=== PATIENT | female | born 1930 | race American Indian/Alaskan Native ===

== ENCOUNTER 2017-06-10 09:01 | Inpatient (IN) | payer MEDICARE ==
[2017-06-10 09:12] VITALS: BMI 41.6
--- NOTE | 2017-06-10 09:49 | ED PDOC ---
Arrival/HPI - General Chief Complaint: Lower Extremity Problem/Injury Time Seen by Provider: 06/10/17 09:07 Historian: Patient, Family - History of Present Illness Narrative History of Present Illness (Text): 06/10/17 09:57 86-year-old female presented to [facility] [place] with bilateral feet swelling with a PMH of hypothyroidism, iron deficiency anemia, diabetes, CHF, and hyperlipidemia. Her symptoms began a month a half ago, but over the past few weeks the swelling has been getting worse. She rates the pain in her feet as a 10/10. She has tried compression stockings and elevating her legs, but nothing has helped. She complains of decreased sensation in her toes and that they are always cold. Says that her left big toe sometimes feels "." These symptoms have occurred before. She was discharged from [facility] in the beginning of April and the swelling has been progressively getting worse. She admits to cough, trouble urinating, and numbness and tingling in her feet. Denies shortness of breath, chest pain, nausea, vomiting, and diarrhea. PMH: Hypothyroid, diabetes, CHF, hyperlipidemia, iron deficiency anemia, and chronic constipation PSH: Denies Social: denies smoking, alcohol, illicit drugs Allergies: ibuprofen 06/10/17 10:12 06/10/17 10:36 Symptom Onset: Gradual Symptom Course: Worsening Past Medical History - Provider Review Nursing Documentation Reviewed: Yes - Travel History Have you recently traveled outside [place] w/in the past 3 mons?: Yes - Cardiac Hx Congestive Heart Failure: Yes Hx Hypertension: Yes - Endocrine/Metabolic Hx Diabetes Mellitus Type 2: Yes Hx Hypothyroidism: Yes - Psychiatric Hx Substance Use: No - Anesthesia Hx Anesthesia: Yes Family/Social History - Physician Review Nursing Documentation Reviewed: Yes Family/Social History: No Known Family HX Smoking Status: Never Smoked Hx Alcohol Use: No Hx Substance Use: No Allergies/Home Meds Allergies/Adverse Reactions: Allergies ibuprofen Allergy (Verified 06/10/17 09:13) ITCHING Home Medications: Home Meds Medication Instructions Recorded Confirmed Aspirin [Ecotrin] 81 mg PO DAILY 06/10/17 06/10/17 Cholecalciferol (Vitamin D3) 400 unit PO DAILY 06/10/17 06/10/17 [Vitamin D-400] Clopidogrel [Plavix] 75 mg PO DAILY 06/10/17 06/10/17 Cyanocobalamin (Vitamin B-12) 50 mcg PO DAILY 06/10/17 06/10/17 [Vitamin B-12] Ferrous Sulfate [Feosol] 325 mg PO DAILY 06/10/17 06/10/17 Folic Acid 1 mg PO DAILY 06/10/17 06/10/17 Furosemide [Lasix] 40 mg PO TID 06/10/17 06/10/17 Levothyroxine [Levoxyl] 0.125 mg PO DAILY 06/10/17 06/10/17 Linagliptin [Tradjenta] 5 mg PO DAILY 06/10/17 06/10/17 Pantoprazole [Protonix] 40 mg PO DAILY 06/10/17 06/10/17 Torsemide [Demadex] 20 mg PO DAILY 06/10/17 06/10/17 Vit A and D3 in Cod Liver Oil 1 sgl PO DAILY 06/10/17 06/10/17 [Natural Cod Liver Oil] Review of Systems - Physician Review All systems were reviewed & negative as marked: Yes - Review of Systems Constitutional: Normal Eyes: Normal ENT: Normal Respiratory: Normal Cardiovascular: Normal. absent: Chest Pain Gastrointestinal: Constipation. absent: Diarrhea, Nausea, Vomiting Genitourinary Female: Normal, Other (Trouble urinating ) Musculoskeletal: Normal Skin: Normal Neurological: Normal Endocrine: Normal Hemo/Lymphatic: Normal Psychiatric: Normal Physical Exam Vital Signs Reviewed: Yes Vital Signs Temp Pulse Resp BP Pulse Ox 06/10/17 12:06 90 18 112/65 96 06/10/17 09:14 97.8 F 91 H 16 117/69 98 Temperature: Afebrile Blood Pressure: Normal Pulse: Regular Respiratory Rate: Normal Appearance: Positive for: Well-Appearing, Non-Toxic, Other (uncomfortbale ) Pain Distress: Moderate Mental Status: Positive for: Alert and Oriented X 3 - Systems Exam Head: Present: Atraumatic, Normocephalic Extroacular Muscles: Present: EOMI Conjunctiva: Present: Normal Mouth: Present: Moist Mucous Membranes Neck: Present: Normal Range of Motion. No: JVD Respiratory/Chest: Present: Good Air Exchange, Other (boibasilar fine crackles ) . No: Respiratory Distress, Accessory Muscle Use Cardiovascular: Present: Regular Rate and Rhythm, Normal S1, S2. No: Murmurs Abdomen: Present: Normal Bowel Sounds, Other (obese pannis , some anasarca in lower regions, mild fluid wave, ). No: Tenderness, Distention, Peritoneal Signs Back: Present: Normal Inspection Upper Extremity: Present: Normal Inspection. No: Cyanosis, Edema Lower Extremity: Present: Edema (+2), Other (2+ pitting edema to lower thighs, b /l intertignous rash in b/l inguinal crease worse on the left > right ) Neurological: Present: GCS=15, CN II-XII Intact, Speech Normal, Motor Func Grossly Intact, Normal Sensory Function, Normal Cerebellar Funct, Norm Deep Tendon Reflexes, Gait Normal, Memory Normal Skin: Present: Warm, Dry, Normal Color. No: Rashes Psychiatric: Present: Alert, Oriented x 3, Normal Insight, Normal Concentration Medical Decision Making ED Course and Treatment: given 1 month of new inabulity to ambulate due to pain from worsiening peripheral edema, and then progressive op/pnd pt will need admission for diureisis. Intertrigo in b/l inguinal crease w/ no cellulitis.: trial of nystatin. 06/10/17 12:08 - Lab Interpretations Lab Results: 06/10/17 10:00 06/10/17 10:00 Lab Results 06/10/17 10:00: Sodium 142, Chloride 108 H, Potassium 3.7, Carbon Dioxide 22, Anion Gap 15, BUN 53 H, Creatinine 2.2 H, Est GFR ( Amer) 26, Est GFR ( Non-Af Amer) 21, Random Glucose 135 H, Calcium 10.6 H, Total Bilirubin 1.1, AST 22, ALT 24, Alkaline Phosphatase 77, Lactate Dehydrogenase 494, Total Creatine Kinase 29 L, Troponin I < 0.01, NT-Pro-B Natriuret Pep 27498 H, Total Protein 7.3, Albumin 3.7, Globulin 3.6, Albumin/Globulin Ratio 1.0 L 06/10/17 10:00: pO2 37, VBG pH 7.32, VBG pCO2 46.0, VBG HCO3 23.7, VBG Total CO2 25.1, VBG O2 Sat (Calc) 74.3 H, VBG Base Excess -2.6 L, VBG Potassium 3.8, Sodium 140.0, Chloride 112.0 H, Glucose 138 H, Lactate 1.5, FiO2 21.0, Venous Blood Potassium 3.8 11/18/17 10:00: PT 17.0 H, INR 1.53 H, APTT 28.2 06/10/17 10:00: WBC 5.6, RBC 3.71, Hgb 8.8 L, Hct 27.7 L, MCV 74.7 L, MCH 23.7 L , MCHC 31.8, RDW 18.5 H, Plt Count 241, MPV 9.2, Gran % 74.6 H, Lymph % (Auto) 14.9 L, [place] % (Auto) 7.5 H, Eos % (Auto) 2.5, Baso % (Auto) 0.5, Gran # 4.15, Lymph # 0.8 L, [place] # 0.4, Eos # 0.1, Baso # 0.03 - RAD Interpretation Radiology Orders: 06/10/17 09:18 CHEST TWO VIEWS (PA/LAT) [RAD] Stat - Medication Orders Current Medication Orders: Acetaminophen (Tylenol 325mg Tab) 650 mg PO STAT STA Stop: 06/10/17 12:06 Cyclobenzaprine HCl (Flexeril) 5 mg PO STAT STA Stop: 06/10/17 12:05 Furosemide (Lasix) 60 mg IVP STAT STA Stop: 06/10/17 11:59 Ipratropium [place] (Atrovent) 0.5 mg IH STAT STA Stop: 06/10/17 12:07 Nystatin (Nystop Topical Powder) 3 gm TOP STAT STA Stop: 06/10/17 12:03 Disposition/Present on Arrival - Present on Arrival Any Indicators Present on Arrival: No History of DVT/PE: No History of Uncontrolled Diabetes: No Urinary Catheter: No History of Decub. Ulcer: No History Surgical Site Infection Following: None - Disposition Have Diagnosis and Disposition been Completed?: Yes Diagnosis: Acute exacerbation of CHF (congestive heart failure) Disposition: HOSPITALIZED Disposition Time: 12:09 Patient Plan: Admission Patient Problems: Current Active Problems Problem Status Onset Acute exacerbation of CHF (congestive heart failure) Acute Condition: FAIR Discharge Instructions (ExitCare): Heart Failure (ED) Referrals: Agusto Aguilar MD, PhD [Primary Care Provider] - Follow up with primary Forms: Libersy (Andorran)
[2017-06-10 10:14] LABS: BASO # 0.03 K/mm3 (0.0-2.0); BASO % 0.5 % (0.0-3.0); EOS # 0.1 (0.0-0.7); EOS % 2.5 % (1.5-5.0); GRAN # 4.15 (1.4-6.5); GRAN % 74.6 % (50.0-68.0); HEMATOCRIT 27.7 % (36.0-48.0); LYMPH # 0.8 (1.2-3.4); LYMPH % 14.9 % (22.0-35.0); MEAN CELL VOLUME 74.7 fl (80.0-105.0); MEAN CORPUSCULAR HEMOGLOBIN 23.7 pg (25.0-35.0); MEAN CORPUSCULAR HGB CONC 31.8 g/dl (31.0-37.0); MEAN PLATELET VOLUME 9.2 fl (7.0-11.0); MONO # 0.4 (0.1-0.6); MONO % 7.5 % (1.0-6.0); RED CELL DISTRIBUTION WIDTH 18.5 % (11.5-14.5); WHITE BLOOD COUNT 5.6 10^3/ul (4.5-11.0)
[2017-06-10 10:20] LABS: VENOUS BLOOD GAS BASE EXCESS -2.6 mmol/L (0.0-2.0); VENOUS BLOOD PH 7.32 (7.32-7.43)
[2017-06-10 10:24] LABS: INR 1.53 (0.93-1.08); PARTIAL THROMBOPLASTIN TIME 28.2 Seconds (25.1-36.5)
[2017-06-10 10:32] LABS: ALKALINE PHOSPHATASE 77 U/L (38-126); ALT/SGPT 24 U/L (7-56); AST/SGOT 22 U/L (14-36); BILIRUBIN,TOTAL 1.1 mg/dL (0.2-1.3); BLOOD UREA NITROGEN 53 mg/dL (7-21); CALCIUM 10.6 mg/dL (8.4-10.5); CARBON DIOXIDE 22 mmol/L (21-33); CHLORIDE 108 mmol/L (98-107); GFR AFRICAN-AMERICAN 26; GLUCOSE,RANDOM 135 mg/dL (70-110); POTASSIUM 3.7 mmol/L (3.6-5.0); SODIUM 142 mmol/L (132-148); TOTAL PROTEIN 7.3 g/dL (5.8-8.3)
[2017-06-10 10:39] LABS: TROPONIN I < 0.01 ng/mL
--- NOTE | 2017-06-10 10:53 | RAD ---
HISTORY: chf? COMPARISON: No prior. TECHNIQUE: Chest PA and lateral FINDINGS: LUNGS: Oval subsegmental atelectasis at both lung bases. No infiltrate elsewhere. PLEURA: Minimal blunting of both costophrenic sulci which may reflect very small pleural effusions or chronic pleural thickening. CARDIOVASCULAR: Normal. OSSEOUS STRUCTURES: No significant abnormalities. VISUALIZED UPPER ABDOMEN: Normal. OTHER FINDINGS: None. IMPRESSION: Possible very small bilateral pleural effusion. Bibasilar subsegmental atelectasis.
[2017-06-10] MEDS ORDERED: Nystatin 100,000 Units/gm Topical Pow(15 gm) TOP STA (12:02)
[2017-06-10] MEDS ORDERED: Ipratropium 0.02% Inhal Soln (0.5 mg/2.5 ml) UD IH STA (12:06)
[2017-06-10 12:17] LABS: URINE BILIRUBIN NEGATIVE (NEGATIVE); URINE BLOOD NEGATIVE (NEGATIVE); URINE GLUCOSE (UA) NEGATIVE (NEGATIVE); URINE KETONE NEGATIVE (NEGATIVE); URINE LEUKOCYTE ESTERASE NEGATIVE Leu/uL (NEGATIVE); URINE PROTEIN TRACE mg/dL (<30 mg/dL); URINE UROBILINOGEN 0.2 E.U./dL (<1 E.U./dL)
[2017-06-10 12:20] LABS: URINE APPEARANCE CLEAR (CLEAR); URINE COLOR YELLOW (YELLOW)
[2017-06-10 12:34] LABS: URINE BACTERIA TRACE (NEG); URINE EPITHELIAL CELLS 0 - 2 /hpf (0-5); URINE RBC NEGATIVE /hpf (0-2); URINE WBC 0 - 2 /hpf (0-6)
[2017-06-10] MEDS ORDERED: Pneumococcal 23-Valent Vaccine IM ONE (15:31)
[2017-06-10] MEDS ORDERED: Influenza Vaccine 60 mcg/0.5 mL SYR (4YR UP) IM ONE (15:31)
[2017-06-10] MEDS: Insulin Reg-LOW-Coverage SC SCH ×2 (17:00→22:18)
--- NOTE | 2017-06-10 17:33 | US ---
PROCEDURE: Ultrasound of the Kidneys HISTORY: azotemia COMPARISON: None available. TECHNIQUE: Sonogram of the kidneys. Examination limited due to patient's inability to reposition for decubitus imaging and inability to suspend respiration. FINDINGS: RIGHT KIDNEY: Measures: 11.6 cm. Normal in size, contour and echogenicity. No stone, solid mass lesion or hydronephrosis visualized. LEFT KIDNEY: Measures: 8.9 cm. Normal in size, contour and echogenicity. No stone, solid mass lesion or hydronephrosis visualized. Evaluation of left kidney is limited. OTHER FINDINGS: Mild ascites IMPRESSION: Limited examination. Unremarkable examination of kidneys. Mild ascites.
--- NOTE | 2017-06-10 19:43 | HP ---
HISTORY OF PRESENT ILLNESS: This 86-year-old -[place] female was brought to the [facility] ER by her family for evaluation of shortness of breath and marked deconditioning. She resides at home in a 2-family home with her daughter. For the past month, she has been experiencing increasing shortness of breath with dyspnea on exertion as well as increasing pedal edema and difficulty with ambulation. PAST MEDICAL HISTORY: Significant for atherosclerotic heart disease, recurrent congestive heart failure, chronic hypertension, peptic ulcer disease with GERD, type 2 diabetes mellitus, hypothyroidism, chronic hypertension, anemia of chronic disease. The patient states she is status post a colonoscopy, endoscopy at [facility] approximately 1 year ago which was unremarkable for any cancer or major pathology. Also, with history of degenerative arthritis, obesity. OUTPATIENT MEDICATIONS: Including cod liver oil, Demadex, Protonix, Tradjenta, levothyroxine, Lasix, folic acid, Feosol, Plavix, vitamin D3, and Ecotrin. ALLERGIES: THE PATIENT ADMITS ALLERGY TO IBUPROFEN. SOCIAL HISTORY: She states she is a nondrinker, nonsmoker, non-IV drug misuser. She is a current retired homemaker. 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 REVIEW OF SYSTEMS: CONSTITUTIONAL: She denied fever, chills, or any loss of weight in the recent past. HEAD: Denies any knowledge of seizure or stroke. EYE: Denies change in visual acuity. EAR: No hearing loss. THROAT: No swallowing difficulty. NECK: No stiffness. CARDIAC: Longstanding history of atherosclerotic heart disease and congestive heart failure with worsening pedal edema, anasarca, and shortness of breath in the past month. PULMONARY: Volume-overload related cough and shortness of breath with exertion. GASTROINTESTINAL: GERD. GENITOURINARY: Chronic renal failure. VASCULAR: Denies claudication. PSYCHOLOGIC: Anxiety. NEUROLOGIC: No recent stroke. HEMATOLOGIC: Anemia of chronic disease. SKIN: No rash. No ulcerations. PHYSICAL EXAMINATION: GENERAL: Temperature 97.8, respirations 16, pulse 91, blood pressure 117/69, pulse ox 98% room air. HEENT: Head normocephalic, atraumatic. Eyes, no icterus. Ears, clear. Throat, noninjected. NECK: Supple. HEART: Irregular S1, S2. LUNGS: Decreased breath sounds at both bases. ABDOMEN: Obese, nontender. No palpable organomegaly. No rebound. No guarding. No tenderness. EXTREMITIES: A 3+ pitting edema from foot to knees. No vascular ulcers. No rash. No cellulitis. SKIN: No rash. No cellulitis. No ulcers. PSYCHOLOGIC: Alert and oriented x3. NEUROLOGIC: Markedly deconditioned. LABORATORY DATA: White count 5600, hemoglobin 8.8, hematocrit 27.7, platelets 241,000. PT/INR 1.53, PTT 28.2. Sodium 142, K 3.7, chloride 108, bicarb 22, BUN 53, creatinine 2.2, random blood sugar 135. All liver function testing was normal including bilirubin 1.1, AST 22, ALT 24, alk phos 77. CPK normal, 29. Troponin less than 0.01. BNP 14,800. Urinalysis showed trace protein, no blood, trace bacteria. EKG showed atrial fibrillation with nonspecific ST-T wave changes. Chest x-ray showed atelectasis at both lung bases, small pleural effusions versus chronic pleural thickening, no active infiltrate. IMPRESSION: This is an 86-year-old female with decompensated congestive heart failure, probable right heart failure with history of atherosclerotic heart disease, recurrent congestive heart failure, chronic obstructive pulmonary disease, obesity, anemia of chronic disease, history of iron-deficiency anemia for which the patient states she had an unremarkable endoscopy and colonoscopy with no evidence of cancer within the last year with comorbidities of type 2 diabetes mellitus, degenerative arthritis, gastroesophageal reflux disease, hypothyroidism, chronic renal failure stage IV. PLAN: At present, is to admit this patient to the Cardiac Unit. She will be placed on a heart-healthy diabetic diet with a 1000 mL p.o. fluid restriction daily. As reviewed with her nurse, Maida, she is ordered to receive Ecotrin 81 mg p.o. daily, Plavix 75 mg p.o. daily, ferrous gluconate 324 mg p.o. daily, folic acid 1 mg p.o. daily, Lasix 40 mg IV t.i.d., regular low-dose insulin coverage a.c. meals and at bedtime, Pepcid 20 mg p.o. at bedtime, Tylenol 650 mg p.o. q. 6 hours p.r.n. pain or temperature greater than 101, and Zofran 4 mg IV q. 8 hours p.r.n. nausea and vomiting. We will monitor the patient's daily weight and I's and O's. Given her marked deconditioning and lower extremity bilateral weakness, I will order a consultation with Neurology to rule out spinal arthritic peripheral neuropathy. The patient will be ordered to have physical therapy for reconditioning and gait training. She will require serial electrolytes and renal ultrasound and anemia evaluation and serial monitoring of her basic metabolic panels. I will order a T4, hemoglobin A1c, and a fasting lipid level. I will also order a 2-D echocardiogram to evaluate wall motion and evidence of biventricular heart failure. Decision will be needed to be made regarding adjustment of anticoagulation given her atrial fibrillation and after discussion with Neurology regarding the use of an anticoagulation agent since she is currently on both Ecotrin and Plavix. All of the above was discussed in detail with the patient, nursing, and family. Greater than 75 minutes was spent in the care, counseling, management, reviewing of labs, x-rays, and ordering of testing and medications for this patient today. All questions were answered. Ioana Alvarez MD MTDD
[2017-06-10 20:46] LABS: VITAMIN D 25 OH TOTAL 19.4 NG/ML (30.0-100.0)
--- NOTE | 2017-06-10 21:26 | CP.PCM.PN ---
Subjective - Date & Time of Evaluation Date of Evaluation: 06/10/17 Time of Evaluation: 21:01 - Subjective Subjective: S: It was requested to insert a heparin lock. No acute symptoms present. Pertinent medical record was reviewed. O: Last Vital Signs 3 Temp 97.9 F 06/10/17 18:00 Pulse 90 06/10/17 15:12 Resp 20 06/10/17 18:00 BP 118/73 06/10/17 18:00 Pulse Ox 96 06/10/17 13:25 Awake, alert,obese. LUNGS: Normal breathing pattern. A:Poor venous access. Encounter for Intravenous line placement. P: # 22 angiocath was inserted in left hand dorsum. Objective - Vital Signs/Intake and Output Vital Signs (last 24 hours): Temp Pulse Resp BP Pulse Ox 97.9 F 90 20 118/73 96 06/10/17 18:00 06/10/17 15:12 06/10/17 18:00 06/10/17 18:00 06/10/17 13:25 - Medications Medications: Current Medications Acetaminophen (Tylenol 325mg Tab) 650 mg PO Q6H PRN PRN Reason: Pain, Mild (1-3) Aspirin (Ecotrin) 81 mg PO DAILY [facility] Last Admin: 06/10/17 17:51 Dose: 81 mg Clopidogrel Bisulfate (Plavix) 75 mg PO DAILY [facility] Last Admin: 06/10/17 17:51 Dose: 75 mg Famotidine (Pepcid) 20 mg PO HS [facility] Ferrous Gluconate (Fergon) 324 mg PO DAILY [facility] Last Admin: 06/10/17 17:51 Dose: 324 mg Folic Acid (Folic Acid) 1 mg PO DAILY [facility] Last Admin: 06/10/17 17:51 Dose: 1 mg Furosemide (Lasix) 40 mg IVP Q8 [facility] Last Admin: 06/10/17 17:50 Dose: 40 mg Insulin Human Regular (Humulin R Low) 0 units SC ACHS [facility] PRN Reason: Protocol Last Admin: 06/10/17 17:00 Dose: Not Given Levothyroxine Sodium (Synthroid) 125 mcg PO 0600 [facility] Ondansetron HCl (Zofran Inj) 4 mg IVP Q8H PRN PRN Reason: Nausea/Vomiting - Labs Labs: PT 17.0 SECONDS (9.4-12.5) H 06/10/17 10:00 INR 1.53 (0.93-1.08) H 06/10/17 10:00 APTT 28.2 Seconds (25.1-36.5) 06/10/17 10:00
[2017-06-10 21:43] LABS: FOLATE > 20.0 ng/mL
--- NOTE | 2017-06-10 23:14 | CARD ---
APPROVED REPORT EKG Measurement Heart [id number] <Conclusion> Atrial fibrillation with premature ventricular or aberrantly conducted complexes Left bundle branch block Abnormal ECG
[2017-06-11] MEDS: Levothyroxine 125 MCG TAB PO SCH (06:26)
[2017-06-11 07:19] LABS: HEMATOCRIT 26.1 % (36.0-48.0)
[2017-06-11 07:57] LABS: CALCIUM 10.2 mg/dL (8.4-10.5); POTASSIUM 3.8 mmol/L (3.6-5.0)
[2017-06-11] MEDS: Insulin Reg-LOW-Coverage SC SCH ×4 (08:50→22:36)
[2017-06-11] MEDS ORDERED: Enoxaparin 120 mg Syringe SC SCH (17:45)
--- NOTE | 2017-06-11 23:11 | PN ---
DATE: 06/11/2017 SUBJECTIVE: This 86-year-old female was examined on the cardiac unit. Her case was reviewed in detail with herself and her nurse, Stella Liz, registered nurse. The patient remains chest pain free. She is mildly short of breath but less so. She was able to stand with physical therapy and take a few steps this morning and denies any fever or chills. She remains in atrial fibrillation on the line patrolman. PHYSICAL EXAMINATION: VITAL SIGNS: Temperature 98.1, respirations 19, pulse 96, blood pressure 115/72 with a pulse ox of 98%. Intake was 240 mL, output 1300 mL. HEENT: Head: Normocephalic, atraumatic. Eyes: No icterus. Ears: Clear. Throat: Noninjected. NECK: Supple. HEART: Irregular S1, S2. No pathological rubs, murmurs, or gallops. LUNGS: Decreased breath sounds at both bases. ABDOMEN: Obese, nontender. No palpable organomegaly. EXTREMITIES: 3+ pitting edema to her knees. SKIN: Without rash. No ulcerations. VASCULAR: Legs warm to touch. PSYCHOLOGICAL: Alert and oriented x3. NEUROLOGICAL: Grossly intact. LABORATORY DATA: Hemoglobin 8.3, hematocrit 26.1. PT/INR 1.53, PTT 28.2. Sodium 143, K 3.8, chloride 109, bicarb 23, BUN 53, creatinine 2.1. Estimated GFR 27 mL per minute. Random blood sugar 116. Calcium normal 10.2. Cholesterol 111, triglyceride 78, LDL 42, HDL 42. Vitamin D level low 19.4, normal 30 to 100. Iron level 49, TIBC 337, percent saturation 15, ferritin level 433. B12 level 929, folate greater than 20. Urinalysis trace bacteria. Microbiology: Urine culture, no growth. Chest x-ray: I reviewed her chest x-ray. It shows bibasilar atelectasis and questionable small pleural effusions versus pleural thickening. No infiltrate was appreciated. Renal ultrasound: Reviewed, there were no stones, no solid masses, nor hydronephrosis appreciated. She does have mild ascites present. EKG: Reviewed, shows atrial fibrillation with nonspecific ST-T wave changes. IMPRESSION: An 86-year-old female with morbid obesity, marked deconditioning, admitted with [id number] congestive heart failure with anemia of chronic disease, history of iron-deficiency anemia, chronic renal failure stage IV, chronic hypertension, degenerative arthritis, history of spinal arthritis, hypothyroidism, now with insulin-dependent diabetes mellitus. PLAN: This case, as reviewed with Dr. Randall Joe from neurology, will require the patient to have an MRI with no contrast of her brain as well as MRI of her lumbar spine because of bilateral chronic lower extremity weakness. Upon further questioning of this patient, she has no knowledge of why her admission medications included Plavix. She denies any knowledge of myocardial infarction, coronary artery bypass, coronary artery stents, or previous stroke. As a result, for the time being, I will give this patient dose-appropriate Lovenox until a decision is made regarding appropriate anticoagulation for her chronic atrial fibrillation based on her neurology workup and her echocardiography report. The patient will also continue on Synthroid 125 mcg p.o. daily, Plavix 75 mg p.o. daily, Pepcid 20 mg p.o. at bedtime, Lovenox 120 mg subcu daily, Lopressor 25 mg p.o. b.i.d., holding any dosing for systolic blood pressure less than 100 or pulse less than 50. She continues on Lasix 40 mg IV q. 8 hours with a p.o. fluid restriction of 1200 mL daily to ensure a negative fluid balance because of her probable biventricular heart failure and pedal edema and anasarca. She continues on regular low-dose insulin protocol a.c. meals and at night time; folic acid 1 mg p.o. daily, will be discontinued given her adequate folic acid levels. She will be dosed with lactulose 20 g p.o. stat and daily p.r.n. obstipation and continues on Ecotrin 81 mg p.o. daily for the time being. She is ordered to have strict I's and O's, p.o. fluid restriction, heart-healthy diabetic diet, and a basic metabolic panel has been ordered for the a.m. As re-discussed with the patient, she, according to the patient, has had an unremarkable upper and lower endoscopy of her GI tract with no evidence of GI pathology and greater than thirty five minutes was spent in the care, counseling, management, discussion, review of x-rays, labs, and planning workup for this patient today. All questions were answered. Ioaan Alvarez MD ANGEL
--- NOTE | 2017-06-12 02:24 | CON ---
DATE: HISTORY OF PRESENT ILLNESS: This is an 86-year-old black female, who came to the hospital with bilateral leg swelling of both the feet. Also has past medical history of hypothyroidism, diabetes, anemia and hyperlipidemia. The patient symptoms began about a month and half ago. The patient has been in bed to chair most of the time, has not been ambulating. The patient was in [facility] in the beginning of April and appears has been progressively getting worse and the patient also complain of cough and difficulty of numbness and tingling in both feet. Called to evaluate the patient. PAST MEDICAL HISTORY: Hypothyroid, diabetes, CHF, hyperlipidemia, iron deficiency anemia and colonic constipation. SOCIAL HISTORY: Does not smoke and does not drink. ALLERGIES: IBUPROFEN. HOME MEDICATIONS: Ecotrin, Plavix, Levoxyl, Lasix and Tradjenta. PHYSICAL EXAMINATION: VITAL SIGNS: Blood pressure 117/69. HEENT: Normocephalic and atraumatic. NECK: Supple. NEURO: Awake, oriented to self and place. Cranial nerves II through XII were tested. Pupils reactive. EOM intact. Visual field full. No facial asymmetry. Tongue midline. Motor examination; moves both upper extremities equally and difficulty moving both the lower extremities, swelling of both the legs, deep tendon reflexes 1+, both plantars downgoing. Sensory; appears intact. Cerebellar; gait deferred. IMPRESSION AND PLAN: Bilateral leg weakness and the patient was bound to the bed and to chair for over a month at home and was seen recently in [facility] a month and half ago. Possibly peripheral neuropathy, congestive heart failure, swelling of both the feet and we will do MRI of the head with and without Gadolinium and workup in progress. Continue present management. We will follow up. Cecilio Joe MD
[2017-06-12] MEDS: Levothyroxine 125 MCG TAB PO SCH (06:57)
[2017-06-12 07:33] LABS: CALCIUM 9.9 mg/dL (8.4-10.5); POTASSIUM 4.1 mmol/L (3.6-5.0)
[2017-06-12] MEDS: Insulin Reg-LOW-Coverage SC SCH ×4 (08:28→21:28)
--- NOTE | 2017-06-12 11:09 | CP.PCM.PN ---
<Ghislaine Bonilla - Last Filed: 06/12/17 15:49> Subjective - Date & Time of Evaluation Date of Evaluation: 06/12/17 Time of Evaluation: 11:06 - Subjective Subjective: PGY-2 Neurology progress note for Dr. Joe's service Patient seen and examined at bedside. No acute distress, patient is resting comfortably in the chair. She denies any worsening weakness, numbness of tingling. Objective - Vital Signs/Intake and Output Vital Signs (last 24 hours): Temp Pulse Resp BP Pulse Ox 98.9 F 95 H 19 124/65 96 06/12/17 06:00 06/12/17 08:28 06/12/17 06:00 06/12/17 08:28 06/12/17 06:00 Intake and Output: 06/12/17 06/12/17 06:59 18:59 Intake Total 300 Output Total 300 Balance 0 - Medications Medications: Current Medications Acetaminophen (Tylenol 325mg Tab) 650 mg PO Q6H PRN PRN Reason: Pain, Mild (1-3) Last Admin: 06/12/17 02:01 Dose: 650 mg Aspirin (Ecotrin) 81 mg PO DAILY [facility] Last Admin: 06/11/17 10:15 Dose: 81 mg Clopidogrel Bisulfate (Plavix) 75 mg PO DAILY [facility] Last Admin: 06/11/17 10:15 Dose: 75 mg Enoxaparin Sodium (Lovenox) 120 mg SC DAILY [facility] PRN Reason: Protocol Last Admin: 06/11/17 17:56 Dose: 120 mg Famotidine (Pepcid) 20 mg PO HS [facility] Last Admin: 06/11/17 22:36 Dose: 20 mg Ferrous Gluconate (Fergon) 324 mg PO DAILY [facility] Last Admin: 06/11/17 10:15 Dose: 324 mg Furosemide (Lasix) 40 mg IVP Q8 [facility] Last Admin: 06/12/17 06:57 Dose: 40 mg Insulin Human Regular (Humulin R Low) 0 units SC ACHS [facility] PRN Reason: Protocol Last Admin: 06/12/17 08:28 Dose: Not Given Lactulose (Enulose) 20 gm PO DAILY PRN PRN Reason: Constipation Levothyroxine Sodium (Synthroid) 125 mcg PO 0600 [facility] Last Admin: 06/12/17 06:57 Dose: 125 mcg Metoprolol Tartrate (Lopressor) 25 mg PO BRKDIN [facility] Last Admin: 06/12/17 08:28 Dose: 25 mg Ondansetron HCl (Zofran Inj) 4 mg IVP Q8H PRN PRN Reason: Nausea/Vomiting - Labs Labs: 06/11/17 06:30 06/12/17 05:45 PT 17.0 SECONDS (9.4-12.5) H 06/10/17 10:00 INR 1.53 (0.93-1.08) H 06/10/17 10:00 APTT 28.2 Seconds (25.1-36.5) 06/10/17 10:00 - Constitutional Appears: No Acute Distress - Head Exam Head Exam: ATRAUMATIC, NORMAL INSPECTION, NORMOCEPHALIC - Eye Exam Eye Exam: Normal appearance - ENT Exam ENT Exam: Mucous Membranes Moist - Respiratory Exam Respiratory Exam: Clear to Ausculation Bilateral, NORMAL BREATHING PATTERN. absent: Rhonchi, Wheezes, Respiratory Distress - Cardiovascular Exam Cardiovascular Exam: REGULAR RHYTHM, +S1, +S2. absent: Tachycardia, Murmur - GI/Abdominal Exam GI & Abdominal Exam: Soft, Normal Bowel Sounds. absent: Distended, Firm, Guarding, Tenderness - Extremities Exam Additional comments: +2 pitting edema bilateral - Neurological Exam Neurological Exam: Alert, Awake, Oriented x3 Neuro motor strength exam: Left Upper Extremity: 5, Right Upper Extremity: 5, Left Lower Extremity: 5, Right Lower Extremity: 5 - Psychiatric Exam Psychiatric exam: Normal Affect, Normal Mood - Skin Skin Exam: Dry, Intact, Normal Color, Warm Assessment and Plan - Assessment and Plan (Free Text) Assessment: 86 yo female with PMH of hypothriodism, diabetes, chf, hyperlipidemia, iron deficiency anemia presents with weakness secondary to CVA due to diffuse atherosclerotic disease and bilateral leg weakness secondary to spinal stenosis with underlying deconditioned state. 1. bilateral leg weakness secondary to spinal stenosis with underlying deconditioned state 2. CHF with lower extremity edema 3. diabetes 4. dyslipidemia - Brain MRI results reviewed - lumbar MRI results reviewed - Recommend asa and plavix - PT/OT evaluation - consider acute rehab for further PT. - Continue to monitor BP, replace electrolytes as needed. Patient seen and case discussed/reviewed with attending, Dr. Joe <Randall Joe - Last Filed: 06/12/17 17:59> Objective - Vital Signs/Intake and Output Vital Signs (last 24 hours): Temp Pulse Resp BP Pulse Ox 98.9 F 91 H 19 116/72 96 06/12/17 06:00 06/12/17 14:00 06/12/17 06:00 06/12/17 16:46 06/12/17 06:00 Intake and Output: 06/12/17 06/12/17 06:59 18:59 Intake Total 720 Output Total 675 Balance 45 - Medications Medications: Current Medications Acetaminophen (Tylenol 325mg Tab) 650 mg PO Q6H PRN PRN Reason: Pain, Mild (1-3) Last Admin: 06/12/17 02:01 Dose: 650 mg Aspirin (Ecotrin) 81 mg PO DAILY [facility] Last Admin: 06/12/17 13:15 Dose: 81 mg Cholecalciferol (Vitamin D) 2,000 iu PO DAILY [facility] Clopidogrel Bisulfate (Plavix) 75 mg PO DAILY [facility] Last Admin: 06/12/17 13:16 Dose: 75 mg Enoxaparin Sodium (Lovenox) 120 mg SC 1800 [facility] PRN Reason: Protocol Famotidine (Pepcid) 20 mg PO HS [facility] Last Admin: 06/11/17 22:36 Dose: 20 mg Ferrous Gluconate (Fergon) 324 mg PO DAILY [facility] Last Admin: 06/12/17 13:16 Dose: 324 mg Furosemide (Lasix) 40 mg IVP Q8 [facility] Last Admin: 06/12/17 16:46 Dose: 40 mg Insulin Human Regular (Humulin R Low) 0 units SC ACHS [facility] PRN Reason: Protocol Last Admin: 06/12/17 16:45 Dose: 1 units Lactulose (Enulose) 20 gm PO DAILY PRN PRN Reason: Constipation Levothyroxine Sodium (Synthroid) 125 mcg PO 0600 [facility] Last Admin: 06/12/17 06:57 Dose: 125 mcg Metoprolol Tartrate (Lopressor) 25 mg PO BRKDIN [facility] Last Admin: 06/12/17 08:28 Dose: 25 mg Ondansetron HCl (Zofran Inj) 4 mg IVP Q8H PRN PRN Reason: Nausea/Vomiting - Labs Labs: 06/11/17 06:30 06/12/17 05:45 PT 17.0 SECONDS (9.4-12.5) H 06/10/17 10:00 INR 1.53 (0.93-1.08) H 06/10/17 10:00 APTT 28.2 Seconds (25.1-36.5) 06/10/17 10:00 Attending/Attestation - Attestation I have personally seen and examined this patient.: Yes I have fully participated in the care of the patient.: Yes I have reviewed all pertinent clinical information, including history, physical exam and plan: Yes Notes (Text): C/W ASA 81 , PLAVIX 75 MG AND LIPITOR 80 MG FOR STROEK PREVENTION AND REDUCED LIPITOR 40 MG PO DAILY AFTER 21 DAYS. PT/OT/ACUTE REHAB CHANDANA VENEGAS. 06/12/17 17:58
--- NOTE | 2017-06-12 11:50 | MRI ---
PROCEDURE: MRI BRAIN WITHOUT CONTRAST HISTORY: leg weakness COMPARISON: None. TECHNIQUE: Multiplanar, multisequence MR images of the brain were obtained without intravenous contrast enhancement. FINDINGS: HEMORRHAGE: None apparent. DWI: A smaller restricted diffusion is appreciate the posterior left temporal lobe which likely abuts an area of encephalomalacia making this an acute subacute infarct (lacune) adjacent to prior chronic brain infarct. BRAIN PARENCHYMA: The martinez-white matter differentiation is well preserved. There is no mass effect. There is expansion of the ventriculosulcal and cisternal spaces however in a pattern most compatible with diffuse cerebral atrophy. Chronic microangiopathy is manifest by a limited periventricular and subcortical white matter changes throughout the anterior greater than posterior cerebrum. No suspicious extra-axial fluid collection is identified in the midline brain anatomy appears grossly nonfocal as imaged. VENTRICLES: Unremarkable. No hydrocephalus. CRANIUM: Unremarkable. ORBITS: Grossly unremarkable. PARANASAL SINUSES/MASTOIDS: A small cysts or polyps seen at the right nares junction with the distal portion of the right middle turbinate. VASCULAR SYSTEM: Skull base flow voids intact. OTHER FINDINGS: None. IMPRESSION: 1. A acute or subacute lacune or infarction is seen adjacent to prior small infarct at the posterior left upper lobe. No lobar brain infarction appreciable at this time. No significant mass effect. 2. Age related neuro degenerative changes are identified as per above. 3. A small polyp or cyst is seen at the junction of the right narrowing is with distal right middle turbinate. Consider direct visualization for follow-up.
--- NOTE | 2017-06-12 12:41 | MRI ---
PROCEDURE: MR LUMBAR SPINE WITHOUT CONTRAST HISTORY: bilateral lower extremity weakness COMPARISON: None available. TECHNIQUE: Multiecho multiplanar sequences were performed through the lumbar spine without the use of intravenous contrast. FINDINGS: Normal lumbar lordosis. Vertebral body heights are preserved. Marrow signal unremarkable. Conus medullaris unremarkable at the level of L1. Paraspinal soft tissues are unremarkable. However there is prominent fluid signal seen in the visualized pelvis which is poorly marginated anteriorly and may reflect ascites. Urinary bladder distention or be the differential diagnosis. Further, increase water signal is seen in the subcutaneous fat and in fact appears diffuse and therefore raises a question of anasarca. Further clinical correlation is advised. Consider follow-up abdomen ultrasound or abdomen and pelvis CT for further characterization. Marked, psoas muscle atrophy is appreciated bilaterally. T12-L1: No disc herniation, spinal canal stenosis or neural foraminal narrowing. L1-2: Prominent facet arthropathy is appreciated encroaching the lateral recesses without significant central canal stenosis identified. No disc herniation or significant neural foraminal stenosis bilaterally. L2-3: A large generalized disc bulge is encountered combined with gross facet arthropathy causing a severe central canal stenosis. Mild bilateral neural foraminal stenosis appreciated. No disc herniation. L3-4: A minimal generalized disc bulge combines with gross facet arthropathy resulting in moderate central canal stenosis but no significant neural foraminal stenosis. No disc herniation identified. L4-5: A minimal generalized disc bulge combining with gross facet arthropathy causing mild central canal stenosis concentrated at the lateral recesses slightly greater the left and right sides. No disc herniation identified. No significant neural foraminal stenosis. L5-S1: No disc herniation is appreciate however there is a very limited disc osteophyte complex combined with marked facet joint arthropathy low stenosing the lateral recesses slightly greater the left and right sides. Asymmetric disc osteophyte component causes a [id number] left neural foraminal stenosis with none appreciated at the right side. OTHER FINDINGS: None. IMPRESSION: 1. No definite acute disc herniation appreciated. 2. L2-3 severe and moderate L3-4 degenerative central canal stenoses with lesser additional central canal stenosis otherwise evident as per above. 3. No fracture or spondylolisthesis. Marked psoas muscle muscle atrophy incidentally noted. 4. Relatively prominent fluid is seen the pelvis which may reflect ascites. A markedly distended urinary bladder is the differential diagnosis. Subcutaneous edema is diffuse in the posterior subcutaneous fat with consideration made of anasarca. Follow-up abdomen ultrasound or abdomen pelvis CT is advised for additional characterization.
--- NOTE | 2017-06-12 13:47 | PN ---
DATE: 06/12/2017 SUBJECTIVE: This 86-year-old female remains hospitalized on the cardiac unit. She denies fever. She denies chills. There have been no reports of chest pain. Her shortness of breath is improving. She is being followed by Neurology for bilateral lower extremity weakness for the past month, worsened by her anasarca and pedal edema. At present, the patient is undergoing brain MRI, lumbar spinal MRI, and 2-D echocardiogram. All results of pending. PHYSICAL EXAMINATION: VITAL SIGNS: Temperature 98.9, respirations 19, pulse 92, and blood pressure 121/71. She remains in atrial fibrillation rhythm on the fios line installer. Intake was 240 mL with an output of 1300 mL, consistent with a negative fluid balance. HEENT: Head: Normocephalic, atraumatic. Eyes: No icterus. Ears: Clear. Throat: Noninjected. NECK: Supple. HEART: Irregular. S1 and S2. LUNGS: Decreased breath sounds at both bases. No wheezing. ABDOMEN: Obese. EXTREMITIES: 2+ edema pitting but softer than on admission. VASCULAR: Legs warm to touch. PSYCHOLOGIC: Alert and oriented x3. NEUROLOGIC: Marked deconditioning. SKIN; No rash or ulcerations. LABORATORY DATA: Hemoglobin 8.3 and hematocrit 26.1. Sodium 138, K 4.1, chloride 106, bicarb 19, BUN 58, creatinine 2.4, and random blood sugar 130. Hemoglobin A1c 7.7. Iron level normal 49, T sat percent 15, and ferritin 433. Cholesterol 111, triglycerides 78, LDL 42, and HDL 42. Vitamin D level low at 19.4, normal was greater than 30. B12 normal at 929. Folic acid level greater than 20. Urinalysis showed trace bacteria. Microbiology report shows urine culture with no growth. IMPRESSION: An 86-year-old female with recurrent congestive heart failure, probable right-sided heart failure in the setting of anasarca and pedal edema, with comorbidities of obesity, anemia of chronic disease, with history of an unremarkable endoscopy and colonoscopy at [facility] within the past year, which the patient states was negative for any evidence of gastrointestinal cancer, also with history of type 2 diabetes mellitus, chronic hypertension, gastroesophageal reflux disease, hypothyroidism, low levels of vitamin D, and peripheral neuropathy. PLAN: The plan, as discussed with the patient and her granddaughter, Verna, is to continue physical and occupational therapy for reconditioning and gait training. She continues on a heart-healthy diabetic diet with a 1200 mL p.o. fluid restriction daily. She will have I's and O's monitored to ensure a negative fluid output daily while on parenteral diuretics and she has an order for 2 liters of nasal O2 p.r.n. Brain MRI and spinal lumbar MRIs are pending. The patient is ordered to have a 2-D echocardiogram today. She will continue on vitamin D 2000 International Units p.o. daily, Synthroid 125 mcg p.o. daily, Plavix 75 mg p.o. daily, Pepcid 20 mg p.o. at bedtime, metoprolol tartrate 25 mg p.o. b.i.d., holding for any blood pressure systolic less than 100 or pulse less than 50, Lasix 40 mg IV q. 8 hours, regular low-dose insulin coverage a.c. meals and at bedtime, ferrous gluconate 324 mg p.o. daily, lactulose 20 g p.o. daily p.r.n. obstipation, and Ecotrin 81 mg p.o. daily. The patient will have a repeat basic metabolic panel and hemoglobin/hematocrit in the a.m. As discussed with the patient, her granddaughter, Verna, nursing, case management, social service, physical therapy as well as co-consultants, plan will be to obtain all results and ready this patient for probable subacute rehab given her marked deconditioning and need for rehabilitation. I will discuss once all results are in appropriate anticoagulation for this patient for her chronic atrial fibrillation be it Coumadin or Lovenox, given her previous history of taking Plavix and aspirin for which the patient and family are not clear why they were previously prescribed. Once again on questioning the patient, she has no knowledge of any history of coronary artery bypass, stenting or previous stroke. This will be further discussed with Neurology and Cardiology pending the results of the above. Greater than 35 minutes was spent in the care, counseling, management, review of x-rays, labs and discussion of this patient's clinical status and progress with all of the above as outlined above. All questions were answered. Ioana Alvarez MD [facility]
[2017-06-12] MEDS: Enoxaparin 120 mg Syringe SC SCH (18:01)
[2017-06-13] MEDS: Levothyroxine 125 MCG TAB PO SCH (06:08)
[2017-06-13 06:38] LABS: HEMATOCRIT 27.6 % (36.0-48.0)
[2017-06-13 07:15] LABS: CALCIUM 10.8 mg/dL (8.4-10.5); POTASSIUM 4.5 mmol/L (3.6-5.0)
[2017-06-13] MEDS: Insulin Reg-LOW-Coverage SC SCH ×4 (08:13→21:53)
[2017-06-13] MEDS ORDERED: Albuterol-Ipratrop 3 mg / 0.5 (3 ml) UD IH PRN (08:33)
--- NOTE | 2017-06-13 09:30 | CP.PCM.PN ---
<Ghislaine Bonilla - Last Filed: 06/13/17 17:58> Subjective - Date & Time of Evaluation Date of Evaluation: 06/13/17 Time of Evaluation: 09:29 - Subjective Subjective: PGY-2 Neurology progress note for Dr. Joe's service Patient seen and examined at bedside. No acute distress, patient is sleeping comfortably. She denies any worsening weakness, numbness of tingling. Objective - Vital Signs/Intake and Output Vital Signs (last 24 hours): Temp Pulse Resp BP Pulse Ox 97.8 F 71 20 116/87 100 06/13/17 06:00 06/13/17 09:04 06/13/17 06:00 06/13/17 08:12 06/13/17 06:00 Intake and Output: 06/13/17 06/13/17 06:59 18:59 Intake Total 30 Output Total 300 Balance -270 - Medications Medications: Current Medications Acetaminophen (Tylenol 325mg Tab) 650 mg PO Q6H PRN PRN Reason: Pain, Mild (1-3) Last Admin: 06/12/17 02:01 Dose: 650 mg Albuterol/Ipratropium (Duoneb 3 Mg/0.5 Mg (3 Ml) Ud) 3 ml IH [id number] [facility] Albuterol/Ipratropium (Duoneb 3 Mg/0.5 Mg (3 Ml) Ud) 3 ml IH Q2H PRN PRN Reason: Shortness of Breath Last Admin: 06/13/17 08:56 Dose: 3 ml Aspirin (Ecotrin) 81 mg PO DAILY [facility] Last Admin: 06/12/17 13:15 Dose: 81 mg Cholecalciferol (Vitamin D) 2,000 iu PO DAILY [facility] Clopidogrel Bisulfate (Plavix) 75 mg PO DAILY [facility] Last Admin: 06/12/17 13:16 Dose: 75 mg Enoxaparin Sodium (Lovenox) 120 mg SC 1800 [facility] PRN Reason: Protocol Last Admin: 06/12/17 18:01 Dose: 120 mg Famotidine (Pepcid) 20 mg PO HS [facility] Last Admin: 06/12/17 21:48 Dose: 20 mg Ferrous Gluconate (Fergon) 324 mg PO DAILY [facility] Last Admin: 06/12/17 13:16 Dose: 324 mg Furosemide (Lasix) 40 mg IVP Q8 [facility] Last Admin: 06/13/17 06:06 Dose: 40 mg Insulin Human Regular (Humulin R Low) 0 units SC ACHS [facility] PRN Reason: Protocol Last Admin: 06/13/17 08:13 Dose: Not Given Lactulose (Enulose) 20 gm PO DAILY PRN PRN Reason: Constipation Levothyroxine Sodium (Synthroid) 125 mcg PO 0600 [facility] Last Admin: 06/13/17 06:08 Dose: 125 mcg Metoprolol Tartrate (Lopressor) 25 mg PO BRKDIN [facility] Last Admin: 06/13/17 08:12 Dose: 25 mg Ondansetron HCl (Zofran Inj) 4 mg IVP Q8H PRN PRN Reason: Nausea/Vomiting - Labs Labs: 06/13/17 05:45 06/13/17 05:45 PT 17.0 SECONDS (9.4-12.5) H 06/10/17 10:00 INR 1.53 (0.93-1.08) H 06/10/17 10:00 APTT 28.2 Seconds (25.1-36.5) 06/10/17 10:00 Assessment and Plan - Assessment and Plan (Free Text) Assessment: 86 yo female with PMH of hypothriodism, diabetes, chf, hyperlipidemia, iron deficiency anemia presents with weakness secondary to CVA due to diffuse atherosclerotic disease and bilateral leg weakness secondary to spinal stenosis with underlying deconditioned state. 1. bilateral leg weakness secondary to CVA, spinal stenosis with underlying deconditioned state 2. CHF with lower extremity edema 3. diabetes 4. dyslipidemia - Brain MRI results reviewed - lumbar MRI results reviewed - Recommend asa 81 mg and plavix 75mg - will hold off on anticoagulation for a. fib due to risk of bleed - lipitor 80mg, reduce to 40 after 21 days - PT/OT evaluation - consider acute rehab for further PT. - Continue to monitor BP, replace electrolytes as needed. thank you for the consult, please reconsult if needed. Patient seen and case discussed/reviewed with attending, Dr. Joe <Randall Joe - Last Filed: 06/14/17 09:17> Objective - Vital Signs/Intake and Output Vital Signs (last 24 hours): Temp Pulse Resp BP Pulse Ox 98.3 F 89 20 128/79 98 06/14/17 06:00 06/14/17 08:05 06/14/17 06:00 06/14/17 08:05 06/14/17 06:00 Intake and Output: 06/14/17 06/14/17 06:59 18:59 Intake Total 840 Output Total 400 Balance 440 - Medications Medications: Current Medications Acetaminophen (Tylenol 325mg Tab) 650 mg PO Q6H PRN PRN Reason: Pain, Mild (1-3) Last Admin: 06/14/17 05:18 Dose: 650 mg Aspirin (Ecotrin) 81 mg PO DAILY [facility] Last Admin: 06/13/17 09:37 Dose: 81 mg Cholecalciferol (Vitamin D) 2,000 iu PO DAILY [facility] Last Admin: 06/13/17 09:37 Dose: 2,000 iu Clopidogrel Bisulfate (Plavix) 75 mg PO DAILY [facility] Last Admin: 06/13/17 09:37 Dose: 75 mg Enoxaparin Sodium (Lovenox) 120 mg SC 1800 [facility] PRN Reason: Protocol Last Admin: 06/13/17 17:56 Dose: 120 mg Famotidine (Pepcid) 20 mg PO HS PRN PRN Reason: gerd Ferrous Gluconate (Fergon) 324 mg PO DAILY [facility] Last Admin: 06/13/17 09:37 Dose: 324 mg Furosemide (Lasix) 40 mg PO Q8 [facility] Last Admin: 06/14/17 05:19 Dose: 40 mg Insulin Human Regular (Humulin R Low) 0 units SC ACHS [facility] PRN Reason: Protocol Last Admin: 06/14/17 07:51 Dose: 1 units Levothyroxine Sodium (Synthroid) 125 mcg PO 0600 [facility] Last Admin: 06/14/17 05:19 Dose: 125 mcg Lisinopril (Zestril) 2.5 mg PO DAILY [facility] Metoprolol Tartrate (Lopressor) 25 mg PO BRKDIN [facility] Last Admin: 06/14/17 08:05 Dose: 25 mg Ondansetron HCl (Zofran Inj) 4 mg IVP Q8H PRN PRN Reason: Nausea/Vomiting - Labs Labs: 06/13/17 05:45 06/13/17 05:45 PT 17.0 SECONDS (9.4-12.5) H 06/10/17 10:00 INR 1.53 (0.93-1.08) H 06/10/17 10:00 APTT 28.2 Seconds (25.1-36.5) 06/10/17 10:00 Attending/Attestation - Attestation I have personally seen and examined this patient.: Yes I have fully participated in the care of the patient.: Yes I have reviewed all pertinent clinical information, including history, physical exam and plan: Yes
--- NOTE | 2017-06-13 12:45 | CARD ---
APPROVED REPORT EXAM: Two-dimensional and M-mode echocardiogram with Doppler and color Doppler. INDICATION Chest Pain 2D DIMENSIONS Left Atrium (2D)5.1 (1.6-4.0cm)IVSd1.2 (0.7-1.1cm) LVDd5.7 (3.9-5.9cm)PWd1.4 (0.7-1.1cm) LVDs5.0 (2.5-4.0cm)FS (%) 12.6 % LVEF (%)26.7 (>50%) M-Mode DIMENSIONS Aortic Root3.10 (2.2-3.7cm)Aortic Cusp Exc.1.80 (1.5-2.0cm) Aortic Valve AoV Peak Qamdarhe223.0cm/Livia Peak GR.7mmHg Mitral Valve E/A ratio0.0 TDI E/Lateral E'0.0E/Medial E'0.0 Tricuspid Valve TR Peak [id number] [id number] Peak Gr.32mmHg [id number] LEFT VENTRICLE The Left Ventricle is mildly dilated. There is borderline to mild concentric left ventricular hypertrophy. The systolic function is severely impaired. Regional wall motion abnormalities noted. Anteroseptal dyskinesis. Apical akinesis. RIGHT VENTRICLE The right ventricle is normal size. The right ventricular systolic function is normal. ATRIA The left atrium is moderately dilated. The right atrium is moderately dilated. The interatrial septum is intact with no evidence for an atrial septal defect. AORTIC VALVE The aortic valve is mildly sclerotic. No aortic regurgitation is present. There is no aortic valvular stenosis. MITRAL VALVE The mitral valve is normal in structure. Mitral regurgitation is severe. TRICUSPID VALVE There is moderate tricuspid regurgitation. PULMONIC VALVE The pulmonary valve is normal in structure. GREAT VESSELS The aortic root is normal in size. The IVC is normal in size and collapses >50% with inspiration. PERICARDIAL EFFUSION There is no pleural effusion. There is no pericardial effusion. <Conclusion> Biatrial enlargement. Dialted LV. Severely reduced LV systolic function with anteroseptal dyskinesis and apical akinesis consistent with WA. Severe MR. Moderately severe TR.
[2017-06-13] MEDS ORDERED: Albuterol-Ipratrop 3 mg / 0.5 (3 ml) UD IH SCH (14:00)
[2017-06-13] MEDS: Enoxaparin 120 mg Syringe SC SCH (17:56)
--- NOTE | 2017-06-13 22:11 | CP.PCM.PN ---
Subjective - Date & Time of Evaluation Date of Evaluation: 06/13/17 Time of Evaluation: 22:11 - Subjective Subjective: S:Patient was seen at bedside. Requests a sleeping pill. States that she takes tylenol or benadryl at home for sleep. Mediclal record was reviewed. O: Last Vital Signs 3 Temp 98.2 F 06/13/17 18:00 Pulse 95 H 06/13/17 18:00 Resp 18 06/13/17 18:00 BP 148/88 06/13/17 19:50 Pulse Ox 100 06/13/17 06:00 Awake, alert, not in distress,obese. LUNGS: Normal breathing pattern. NEURO:Speech normal. A:Adjustment insomnia. P:Benadryl 50 mg PO x 1. Objective - Vital Signs/Intake and Output Vital Signs (last 24 hours): Temp Pulse Resp BP Pulse Ox 98.2 F 95 H 18 148/88 100 06/13/17 18:00 06/13/17 18:00 06/13/17 18:00 06/13/17 19:50 06/13/17 06:00 - Medications Medications: Current Medications Acetaminophen (Tylenol 325mg Tab) 650 mg PO Q6H PRN PRN Reason: Pain, Mild (1-3) Last Admin: 06/13/17 18:06 Dose: 650 mg Aspirin (Ecotrin) 81 mg PO DAILY [facility] Last Admin: 06/13/17 09:37 Dose: 81 mg Cholecalciferol (Vitamin D) 2,000 iu PO DAILY [facility] Last Admin: 06/13/17 09:37 Dose: 2,000 iu Clopidogrel Bisulfate (Plavix) 75 mg PO DAILY [facility] Last Admin: 06/13/17 09:37 Dose: 75 mg Enoxaparin Sodium (Lovenox) 120 mg SC 1800 [facility] PRN Reason: Protocol Last Admin: 06/13/17 17:56 Dose: 120 mg Famotidine (Pepcid) 20 mg PO HS PRN PRN Reason: gerd Ferrous Gluconate (Fergon) 324 mg PO DAILY [facility] Last Admin: 06/13/17 09:37 Dose: 324 mg Furosemide (Lasix) 40 mg PO Q8 [facility] Last Admin: 06/13/17 21:54 Dose: Not Given Insulin Human Regular (Humulin R Low) 0 units SC ACHS [facility] PRN Reason: Protocol Last Admin: 06/13/17 21:53 Dose: Not Given Levothyroxine Sodium (Synthroid) 125 mcg PO 0600 [facility] Last Admin: 06/13/17 06:08 Dose: 125 mcg Lisinopril (Zestril) 2.5 mg PO DAILY [facility] Metoprolol Tartrate (Lopressor) 25 mg PO BRKDIN [facility] Last Admin: 06/13/17 17:54 Dose: 25 mg Ondansetron HCl (Zofran Inj) 4 mg IVP Q8H PRN PRN Reason: Nausea/Vomiting - Labs Labs: 06/13/17 05:45 06/13/17 05:45 PT 17.0 SECONDS (9.4-12.5) H 06/10/17 10:00 INR 1.53 (0.93-1.08) H 06/10/17 10:00 APTT 28.2 Seconds (25.1-36.5) 06/10/17 10:00
--- NOTE | 2017-06-14 00:12 | PN ---
DATE: 06/13/2017 SUBJECTIVE: This 86-year-old female was examined at bedside. This case was reviewed in detail with herself and nurse, Marybel Oseguera, registered nurse. This case was also reviewed with clinical case manager, Chey Caldwell, and social worker clinical, Main Gonzalez. The patient has accepted to be placed in subacute rehab. She has been evaluated by Neurology who has cleared her for discharge. I reviewed her brain MRI ordered in the setting of bilateral lower extremity weakness and it showed subacute lacunar infarction adjacent to a prior small infarction in her posterior left upper brain lobe. She also had age-related neurodegenerative changes. There was no evidence of hydrocephalus and no evidence of intracranial hemorrhage. She also has diffuse cerebral atrophy. Lumbar spine MRI was reviewed. No definite acute disc herniations were appreciated. The patient has spinal stenosis of the lumbar spine. This was reviewed with Neurology who has no further plans for additional testing at this time. 2-D echocardiogram was reviewed with Dr. Hui from Cardiology. Her left ventricle systolic function was severely impaired. Right ventricle was normal in size with normal systolic function. Both atria were moderately dilated. There was no evidence of aortic valvular stenosis. She was also noted to have severe mitral regurgitation and moderate tricuspid regurgitation. She remains in an atrial fibrillation rhythm on the cardiac rehabilitation program director. She denies any chest pain, shortness of breath at rest, fever or chills. PHYSICAL EXAMINATION VITAL SIGNS: Temperature 98.4, respirations 18, pulse 82, blood pressure 121/78 and pulse ox 100% with 2 liters nasal O2. She has a negative fluid balance of 270 mL thus far today. HEENT: Head is normocephalic, atraumatic. Eyes: No icterus. Ears: Clear. Throat: Noninjected. NECK: Supple. HEART: Irregular S1, S2. LUNGS: No wheezing. ABDOMEN: Obese, nontender. No palpable organomegaly. EXTREMITIES: 2+ softer edema. VASCULAR: Legs warm to touch. PSYCHOLOGICAL: Alert. NEURO: Stable unchanged. SKIN: No rashes. No ulcerations. LABORATORY DATA: Hemoglobin 8.7, hematocrit 27.6. Sodium 145, K 4.5, chloride 109, bicarb 26, BUN 61, creatinine 2.8, random blood sugar 121. Hemoglobin A1c 7.7. Iron level normal 49. T sat percent 15, ferritin 433. Cholesterol 111, triglycerides 78, LDL 42, HDL 42, B12 of 929 and folic acid greater than 20. Vitamin D level low 19.4. T4 level normal 9.7. Urinalysis; trace protein, trace bacteria. Microbiology report, urine culture no growth. IMPRESSION: An 86-year-old female status post stroke, spinal stenosis, bilateral lower extremity weakness, obesity, acute on chronic systolic congestive heart failure, chronic anemia, history of iron-deficiency, chronic hypertension, peptic ulcer disease with gastroesophageal reflux disease, hypothyroidism, low levels of vitamin D, degenerative arthritis, spinal arthritis, type 2 diabetes mellitus, marked deconditioning with the need for subacute rehab. PLAN: As discussed with the patient, Dr. Marty Baker from Cardiology, Dr. Joe from Neurology, nursing, family, social service, physical therapy and case management, will be to place this patient in subacute rehab for reconditioning, gait training and further adjustment of medication. Today on physical therapy, she was able to walk 8 feet with assistance and a rolling walker. She is out of bed to chair. I will discontinue her Hairston catheter in the a.m. Because of loose bowel movements her p.r.n., lactulose has been discontinued. She will be started on Zestril 2.5 mg p.o. daily which will require the monitoring of a basic metabolic panel given her renal insufficiency. She continues on vitamin D 2000 International Units p.o. daily, Synthroid 125 mcg p.o. daily. As discussed with Dr. Baker, given her marked deconditioning, advanced age, anemia and propensity for fall. She will continue on Plavix 75 mg p.o. daily as well as baby aspirin 81 mg daily for stroke prophylaxis as well as treatment for her atrial fibrillation given her chronic renal failure and risk for hemorrhage with more aggressive anticoagulation at this time. Should the patient become more ambulatory safe, consideration could be given to the addition of possible Coumadin which will need close monitoring of this patient with her PMD either at the subacute rehab or upon discharge to home. At present, it is both Neurology and Cardiology's opinion that the patient would best be served with Plavix and aspirin at this time from a therapeutic and safety standpoint. She is during this hospital stay receiving Lovenox 120 mg subcu daily for atrial fibrillation and DVT prophylaxis; however, this will be discontinued upon discharge as she is now becoming more ambulatory. She continues on metoprolol tartrate 25 mg p.o. b.i.d., Lasix 40 mg p.o. q.8 hours, regular low-dose insulin protocol before meals and at bedtime, ferrous gluconate 324 mg p.o. daily which will require the monitoring of her hemoglobin, hematocrit as well as iron levels and Ecotrin 81 mg p.o. daily. Hopefully, this patient will improve in subacute rehab at which time disposition to home or to fdc can be decided by her primary care physician. Greater than 35 minutes was spent in the care, counseling, management, review of x-rays, echocardiograms, MRIs, labs and medication today including medication adjustments. All questions were answered. Overall prognosis though poor, remains stable at present. Ioana Alvarez MD MTDD
[2017-06-14] MEDS: Levothyroxine 125 MCG TAB PO SCH (05:19)
[2017-06-14 06:22] VITALS: O2SAT 98
[2017-06-14 06:24] VITALS: RESP 20
[2017-06-14] MEDS: Insulin Reg-LOW-Coverage SC SCH ×3 (07:51→16:30)
--- NOTE | 2017-06-14 12:00 | CON ---
DATE: 06/14/2017 REQUESTING PHYSICIAN: oIana Alvarez MD REASON FOR CONSULTATION: Atrial fibrillation, abnormal echocardiogram. HISTORY OF PRESENT ILLNESS: This is a 86-year-old woman who presented on 06/10/2017 with worsening leg edema and dyspnea. An echocardiogram was performed revealing significant LV dysfunction and she is currently in atrial fibrillation. She is very limited in terms of providing additional prior history. Her main complaint is that she has indwelling Hairston catheter. According to the chart, she has had worsening dyspnea and some decreased stamina. She denies any chest pain. PAST MEDICAL HISTORY: She has a history of hypertension, peptic ulcer disease, diabetes, chronic obesity, hypothyroidism and anemia. MEDICATIONS: Her current medications include Ecotrin, Plavix, iron supplement, Lasix 40 mg q. 8 hours., metoprolol 25 mg b.i.d., Lovenox, Pepcid, Synthroid, and Zestril. ALLERGIES: SHE REPORTED HAD A REACTION TO IBUPROFEN IN THE PAST. SOCIAL HISTORY: She does not smoke or drink. She lives at home with family members. FAMILY HISTORY: Mother from heart disease in her 60s. Father from cerebrovascular accident in his 75. There is no other family history of premature disease. REVIEW OF SYSTEMS: A 10-point review of systems is notable mainly for the problems as mentioned above. PHYSICAL EXAMINATION: GENERAL: She is a morbidly obese, very elderly woman. VITAL SIGNS: Her blood pressure is 130/66 with pulse of 82 and in atrial fibrillation, respirations are 14, and she is afebrile. HEENT: Normocephalic and atraumatic. NECK: Supple. No JVD present at this time. CHEST: Diminished breath sounds noted at bases and scattered rales heard. HEART: PMI displaced laterally with soft tones noted and a systolic murmur noted at the apex. GASTROINTESTINAL: The abdomen is soft, obese, and nontender. Normoactive bowel sounds. EXTREMITIES: She has 2+ leg edema is present. SKIN: Warm and dry. PSYCHIATRIC: Somewhat flat affect, otherwise of normal. DIAGNOSTIC DATA: Electrocardiogram reveals atrial fibrillation with nonspecific ST abnormalities. Echocardiogram revealed biatrial enlargement with a dilated left ventricle and severely reduced LV systolic function with evidence of prior anteroapical infarct pattern. Severe mitral regurgitation and moderately severe tricuspid regurgitation are present as well. LABORATORY DATA: Hemoglobin and hematocrit of 8.7 and 27.6 with potassium of 4.5 and BUN and creatinine is 61 and 2.8. IMPRESSION: 1. Decompensated congestive heart failure likely acute on chronic, predominantly systolic at this time. 2. Coronary disease status post remote anteroapical infarct with severe left ventricular dysfunction. 3. Chronic renal insufficiency. 4. History of hypertension and diabetes. 5. Anemia. RECOMMENDATIONS: Her current cardiac medications should continue at the present time. She appears to be at somewhat fairly increased risk for self injury with use of full anticoagulation at this time and aspirin and Plavix offers modest reduction in thromboembolic phenomenon, at this time and she will likely be continued. If at later date her ambulation and gait is fairly steady, then full anticoagulation would be more appropriate. Continued diuretic therapy and fluid restriction are advised. In general, conservative cardiac management at this time would be most appropriate. Thank this consultation and we will be happy to see her in the future as needed. Yasmani Hui MD
[2017-06-14 18:06] VITALS: PULSE 83; TEMP 98.2
[2017-06-14 18:08] VITALS: BP 130/85
--- NOTE | 2017-06-14 23:21 | DS ---
FINAL DIAGNOSES: Acute on chronic systolic congestive heart failure, morbid obesity, history of stroke, history of anemia of chronic disease, history of iron-deficiency anemia, insulin-dependent diabetes mellitus, chronic hypertension, history of peptic ulcer disease with gastroesophageal reflux disease, hypothyroidism, low vitamin D levels, degenerative arthritis, spinal arthritis and chronic renal failure stage IV. DISPOSITION: [facility] for subacute rehab. Consultants were Dr. Joe from Neurology and Dr. Hui from Cardiology. as a diagnosis under the diagnosis chronic renal failure stage IV. DISCHARGE DIET: Heart-healthy diabetic renal diet with 1200 mL p.o. fluid restriction. DISCHARGE MEDICATIONS: Ecotrin 81 mg p.o. daily, ferrous gluconate 324 mg p.o. daily, regular low-dose insulin coverage before meals and at bedtime, Lasix 40 mg p.o. q.8, Lopressor 25 mg b.i.d., Pepcid 20 mg p.o. at bedtime p.r.n. for GERD, Plavix 75 mg p.o. daily, Synthroid 125 mcg p.o. daily, vitamin D 2000 internation units p.o. daily and Zestril 2.5 mg p.o. daily SUMMARY: This 86-year-old female was admitted to the [facility] with marked deconditioning, shortness of breath and anasarca. She was diagnosed with acute on chronic systolic congestive heart failure in the setting of chronic renal failure stage IV, anemia of chronic disease, chronic hypertension and cardiomyopathy. I have reviewed her workup which showed chest x-ray consistent with mild CHF and pleural thickening versus pleural effusions. Renal ultrasound was unremarkable for mass or stones. A brain MRI was consistent with posterior left upper lobe small infarct and a lacunar infarct adjacent to this finding. A CT of her lumbar spine was consistent with spinal stenosis. Echocardiogram was reviewed with Dr. Hui and the patient and consistent with cardiomyopathy, biatrial enlargement, dilated left ventricle with severe impairment of systolic function with anterior septal dyskinesia, no evidence of aortic stenosis, but severe mitral regurgitation, moderate tricuspid regurgitation and no evidence of pleural effusion. At the time of discharge, the patient's Hairston was discontinued. She had vital signs of temperature 98.3, respirations 20, pulse 89 and blood pressure 128/79 with a pulse ox of 98%. Her monitor showed chronic atrial fibrillation. Her labs showed hemoglobin 8.7, hematocrit 27.6, white count 5600, platelets 241,000. Sodium 145, potassium 4.5, chloride 109, bicarb 26, BUN 61, creatinine 2.8, random blood sugar 154. Hemoglobin A1c 7.7. Iron level 49, percent saturation 15, ferritin 433, cholesterol 111, triglycerides 78, LDL 42, HDL 42, B12 of 929, vitamin D level low 19.4, folic acid greater than 20. Urine culture showed no growth. The patient was ambulating with assistance and a walker approximately 8 feet. The patient does have chronic atrial fibrillation. This was further discussed with Dr. Hui given the patient's multiple comorbidities including deconditioning, unsafe ambulation status and chronic renal failure. She will be maintained on Plavix and Ecotrin for the time being. If the patient's clinical status should improve and she is safe with ambulation, consideration by her primary care physician could be given to institution of Coumadin for atrial fibrillation given the fact that the patient has chronic renal insufficiency and this would be the safest drug to consider at that time. The patient's overall prognosis though poor, remains stable at present. Greater than 35 minutes was spent in the care, discussion and management, review of x-rays, labs, diet, echocardiograms, MRIs with the patient, nursing, family and co-consultants. All questions were answered. She is cleared for discharge to subacute rehab later today. Ioana Alvarez MD
== END 2017-06-14 18:11 | DRG 291 ==
LOC: ED 09:01 → MERGE 12:20 → ERH 12:20 → UNMERGE 12:20 → EDUNIT# 12:20 → ERH 13:03 → 2RSO 14:27
PROVIDERS: ADMIT Internal Medicine; ATTEND Internal Medicine
DX: I13.0 Hypertensive heart and chronic kidney disease with heart failure and stage 1 through stage 4 chronic kidney disease, or unspecified chronic kidney disease (principal); I50.23 Acute on chronic systolic (congestive) heart failure; I63.9 Cerebral infarction, unspecified; N18.4 Chronic kidney disease, stage 4 (severe); E11.22 Type 2 diabetes mellitus with diabetic chronic kidney disease; E66.01 Morbid (severe) obesity due to excess calories; I08.1 Rheumatic disorders of both mitral and tricuspid valves; I42.9 Cardiomyopathy, unspecified; I48.2 Chronic atrial fibrillation; E55.9 Vitamin D deficiency, unspecified; G31.9 Degenerative disease of nervous system, unspecified; G62.9 Polyneuropathy, unspecified; G24.9 Dystonia, unspecified; E03.9 Hypothyroidism, unspecified; D63.8 Anemia in other chronic diseases classified elsewhere; E78.5 Hyperlipidemia, unspecified; F51.02 Adjustment insomnia; I25.10 Atherosclerotic heart disease of native coronary artery without angina pectoris; I50.82 Biventricular heart failure; Z86.73 Personal history of transient ischemic attack (TIA), and cerebral infarction without residual deficits; M48.061 Spinal stenosis, lumbar region without neurogenic claudication; K21.9 Gastro-esophageal reflux disease without esophagitis; J44.9 Chronic obstructive pulmonary disease, unspecified; Z79.02 Long term (current) use of antithrombotics/antiplatelets; Z79.4 Long term (current) use of insulin; Z79.82 Long term (current) use of aspirin; Z79.899 Other long term (current) drug therapy; Z82.3 Family history of stroke; Z82.49 Family history of ischemic heart disease and other diseases of the circulatory system; Z87.11 Personal history of peptic ulcer disease; Z88.6 Allergy status to analgesic agent; R40.2412 Glasgow coma scale score 13-15, at arrival to emergency department; R53.81 Other malaise; D50.9 Iron deficiency anemia, unspecified

== ENCOUNTER 2017-06-26 20:39 | Inpatient (IN) | payer MEDICARE ==
[2017-06-26 20:40] VITALS: BMI 41.6
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
--- NOTE | 2017-06-26 22:57 | CT ---
EXAM: CT Head Without Intravenous Contrast CLINICAL HISTORY: 86 years old, female; Signs and symptoms; Altered mental status/memory loss; Age related cognitive decline; Additional info: AMS TECHNIQUE: Axial computed tomography images of the head/brain without intravenous contrast. All CT scans at this facility use one or more dose reduction techniques, viz.: automated exposure control; ma/kV adjustment per patient size (including targeted exams where dose is matched to indication; i.e. head); or iterative reconstruction technique. COMPARISON: MR - BRAIN WITHOUT CONTRAST 2017-06-12 10:53 FINDINGS: Limitations: Motion artifact - mild. Suboptimal positioning. Brain: Moderate atrophy. No definite intracranial hemorrhage. No mass. Several scattered foci of decreased attenuation within periventricular/subcortical white matter. No definite edema. Ventricles: No hydrocephalus. Bones/joints: No acute fracture. Soft tissues: Unremarkable. Vasculature: Atherosclerotic disease of intracranial arteries. Sinuses: No acute sinusitis. Mastoid air cells: No mastoid effusion. Orbits: Unremarkable as visualized. IMPRESSION: 1. Nonspecific white matter changes. Acute infarction may be CT occult within first 24 hours. If a focal deficit persists, consider followup CT or MRI for further evaluation. 2. Incidental/non-acute findings are described above.
[2017-06-26 23:19] LABS: VENOUS BLOOD GAS BASE EXCESS -1.5 mmol/L (0.0-2.0); VENOUS BLOOD PH 7.33 (7.32-7.43)
[2017-06-26 23:24] LABS: EOS % 0.1 % (1.5-5.0); GRAN # 6.07 (1.4-6.5); GRAN % 75.4 % (50.0-68.0); HEMATOCRIT 33.4 % (36.0-48.0); LYMPH # 1.2 (1.2-3.4); LYMPH % 14.9 % (22.0-35.0); MEAN CELL VOLUME 75.9 fl (80.0-105.0); MEAN CORPUSCULAR HEMOGLOBIN 24.1 pg (25.0-35.0); MEAN CORPUSCULAR HGB CONC 31.7 g/dl (31.0-37.0); MONO # 0.8 (0.1-0.6); MONO % 9.6 % (1.0-6.0); PLATELET COUNT 270 10^3/uL (120.0-450.0); RED CELL DISTRIBUTION WIDTH 21.3 % (11.5-14.5); WHITE BLOOD COUNT 8.1 10^3/ul (4.5-11.0)
[2017-06-26 23:30] LABS: INR 2.21 (0.93-1.08); PARTIAL THROMBOPLASTIN TIME 29.3 Seconds (25.1-36.5)
[2017-06-26 23:42] LABS: TROPONIN I < 0.01 ng/mL
[2017-06-26] MEDS ORDERED: Morphine 2 mg/ml ISec IVP STA (23:51)
[2017-06-26 23:53] LABS: ALB/GLOB RATIO 0.9 (1.1-1.8); ALKALINE PHOSPHATASE 119 U/L (38-126); ALT/SGPT 42 U/L (7-56); AST/SGOT 88 U/L (14-36); BILIRUBIN,TOTAL 2.7 mg/dL (0.2-1.3); BLOOD UREA NITROGEN 115 mg/dL (7-21); CALCIUM 11.4 mg/dL (8.4-10.5); CARBON DIOXIDE 24 mmol/L (21-33); CHLORIDE 112 mmol/L (98-107); GFR AFRICAN-AMERICAN 17; GLUCOSE,RANDOM 134 mg/dL (70-110); MAGNESIUM 2.7 mg/dL (1.7-2.2); PHOSPHOROUS 5.9 mg/dL (2.5-4.5); POTASSIUM 4.9 mmol/L (3.6-5.0); SODIUM 152 mmol/L (132-148); TOTAL PROTEIN 8.1 g/dL (5.8-8.3)
[2017-06-27] MEDS: cefTRIAXone 1 gm 1 GM/100 ML BAG IV STA ×3 (01:04→06:40)
[2017-06-27] MEDS: Sodium Chloride 0.9% 500 ML IV STA ×2 (01:05→06:40)
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
[2017-06-27 01:42] LABS: URINE BILIRUBIN NEGATIVE (NEGATIVE); URINE BLOOD MODERATE (NEGATIVE); URINE GLUCOSE (UA) NEGATIVE (NEGATIVE); URINE KETONE NEGATIVE (NEGATIVE); URINE LEUKOCYTE ESTERASE MODERATE Leu/uL (NEGATIVE); URINE PROTEIN TRACE mg/dL (<30 mg/dL)
[2017-06-27 01:47] LABS: URINE APPEARANCE SL CLOUDY (CLEAR); URINE COLOR YELLOW (YELLOW)
[2017-06-27] MEDS: Sodium Chloride 0.9% 1,000 ML IV SCH ×2 (01:54→06:40)
[2017-06-27 01:55] LABS: URINE AMORPHOUS SEDIMENT FEW; URINE BACTERIA SMALL (NEG); URINE EPITHELIAL CELLS 0 - 2 /hpf (0-5)
[2017-06-27 03:26] LABS: VENOUS BLOOD GAS BASE EXCESS -1.8 mmol/L (0.0-2.0); VENOUS BLOOD PH 7.38 (7.32-7.43)
--- NOTE | 2017-06-27 08:16 | RAD ---
HISTORY: Sepsis Patient COMPARISON: 06/10/2017 FINDINGS: LUNGS: No active pulmonary disease. PLEURA: No significant pleural effusion identified, no pneumothorax apparent. CARDIOVASCULAR: Moderate to severe cardiomegaly OSSEOUS STRUCTURES: No significant abnormalities. VISUALIZED UPPER ABDOMEN: Normal. OTHER FINDINGS: None. IMPRESSION: Moderate to severe cardiomegaly
--- NOTE | 2017-06-27 10:53 | CARD ---
APPROVED REPORT EKG Measurement Heart [id number] <Conclusion> Atrial fibrillation Left bundle branch block Abnormal ECG
[2017-06-27] MEDS: Cholecalciferol 1,000 INTLU TAB PO SCH (10:54)
[2017-06-27 11:25] LABS: CALCIUM 11.4 mg/dL (8.4-10.5)
[2017-06-27] MEDS: Insulin Reg-LOW-Coverage SC SCH ×3 (12:55→21:50)
--- NOTE | 2017-06-27 15:22 | US ---
HISTORY: azotemia, elevated lfts COMPARISON: None. TECHNIQUE: Sonographic evaluation of the abdomen. FINDINGS: LIVER: Measures 20.4 cm. Diffusely increased echogenicity of the liver parenchyma. Consistent with fatty infiltration. No mass. No intrahepatic biliary ductal dilatation. GALLBLADDER: Cholelithiasis. Thickened gallbladder wall up to 4 mm. Negative sonographic Tse's sign. Trace pericholecystic fluid. This fluid may be related to the mild generalized ascites. COMMON BILE DUCT: Measures 5 mm. No stones. No dilatation. PANCREAS: Unremarkable as visualized. No mass. No ductal dilatation. RIGHT KIDNEY: Measures 9.9cm. Normal echogenicity. No calculus, mass, or hydronephrosis. LEFT KIDNEY: Measures 8.3cm. Normal echogenicity. No calculus, mass, or hydronephrosis. SPLEEN: Normal in size and contour. No mass. AORTA: No aneurysmal dilatation. IVC: Unremarkable. OTHER FINDINGS: Mild generalized ascites IMPRESSION: Cholelithiasis. Mild generalized ascites. Thickened gallbladder wall. Hepatomegaly with diffuse fatty infiltration of the liver. No evidence of biliary obstruction.
[2017-06-27] MEDS: WATER IV SCH (17:17)
[2017-06-27] MEDS: DEXTROSE 5% IV SCH (17:17)
[2017-06-27 22:49] LABS: ALB/GLOB RATIO 0.8 (1.1-1.8); BILIRUBIN,TOTAL 2.9 mg/dL (0.2-1.3); CALCIUM 11.3 mg/dL (8.4-10.5); TOTAL PROTEIN 7.6 g/dL (5.8-8.3)
[2017-06-27 22:51] LABS: POTASSIUM 4.2 mmol/L (3.6-5.0)
[2017-06-27] MEDS ORDERED: DiphenhydrAMINE 12.5 mg/5 ml LIQ UD (5 ml) PO STA (22:51)
[2017-06-28] MEDS: DEXTROSE 5% IV SCH ×3 (01:00→18:39)
[2017-06-28] MEDS ORDERED: DiphenhydrAMINE 12.5 mg/5 ml LIQ UD (5 ml) PO STA (01:00)
[2017-06-28] MEDS: WATER IV SCH ×3 (01:00→18:39)
--- NOTE | 2017-06-28 06:37 | HP ---
HISTORY OF PRESENT ILLNESS: This 86-year-old female was examined at the bedside. Her case was reviewed in detail with herself, her nurses, as well as speech therapist, Marla Duvall and daughter Ember Garcia. The patient was brought to the [facility] ER for further evaluation of altered mental status. She was recently hospitalized at [facility] and transferred to subacute rehab for further treatment of marked deconditioning and need for gait training. On previous hospital stay in 05/2017, she was noted to have advanced cardiomyopathy, chronic systolic congestive heart failure, evidence of old stroke, spinal arthritis, right heart failure, anasarca, chronic renal failure, anemia of chronic disease, degenerative arthritis, hypothyroidism, history of insulin-dependent diabetes mellitus, peptic ulcer disease, and the patient was being cared for at a local subacute rehab, but brought to [facility] for further evaluation of deterioration in her condition with altered mental status and failure to thrive. In the emergency room, she was found to have acute on chronic renal failure with clinical dehydration, as well as metabolic encephalopathy and chronic atrial fibrillation. She is admitted for further treatment and evaluation of the above. REVIEW OF SYSTEMS: HEAD: On head review, there is report of old stroke and now with metabolic encephalopathy. No recent falls or seizures reported. EYES: On eye review, no change in visual acuity. EARS: On ear review, no hearing loss. THROAT: On throat review, not eating or drinking well at present, needs speech evaluation for swallowing safety evaluation. NECK: On neck review, no complaints of stiffness. HEART: Cardiomyopathy, congestive heart failure, markedly reduced ejection fraction on recent 2-D echocardiogram with history of atrial fibrillation, chronic hypertension, right heart failure, and anasarca. LUNGS: On lung review, chronic obstructive pulmonary disease. GI: Peptic ulcer disease and history of colonoscopy and endoscopies with no reports of cancer in her recent past. 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 History of urinary tract infections. HEMATOLOGICAL: Anemia of chronic disease. ENDOCRINOLOGICAL: History of hypothyroidism and insulin-dependent diabetes mellitus. VASCULAR: No reports of claudication. PSYCHOLOGICAL: No reports of depression. MUSCULOSKELETAL: She has a history of degenerative arthritis as well as spinal arthritis. SKIN: No reports of rash or sacral ulcers. ALLERGIES: SHE HAS SENSITIVITY TO IBUPROFEN. MEDICATIONS: Discharge medications had included Ecotrin, insulin, Lasix, Lopressor, Pepcid, Plavix, Synthroid, vitamin D and Zestril. FAMILY HISTORY: Not applicable. SOCIAL HISTORY: She is a nondrinker, nonsmoker. Retired homemaker. SURGICAL HISTORY: Had included hysterectomy and appendectomy. PHYSICAL EXAMINATION: VITAL SIGNS: Temperature 97.5, respirations 18, pulse 88, blood pressure 134/75, pulse ox 99%. Monitor, atrial fibrillation. HEAD: Normocephalic, atraumatic. EYES: No icterus. EARS: Clear. THROAT: Noninjected. Dry oral mucosal membranes. NECK: Supple. HEART: Irregular S1, S2. LUNGS: Decreased breath sounds at the bases. ABDOMEN: Obese, nontender. No palpable organomegaly. No rebound, no guarding. EXTREMITIES: Decreased edema. VASCULAR: Legs warm to touch. PSYCHOLOGICAL: Able to respond when questioned appropriately. NEURO: Able to move hands and feet on command. SKIN: Without rash. LABORATORY DATA: White count 8,100, hemoglobin 10.6, hematocrit 33.4, platelets 270,000. PT/INR 2.21. Sodium 155, K 4.0, chloride 114, bicarb 21, BUN 118, creatinine 3.2, random blood sugar 121. Liver function testing showed bilirubin 2.7, AST 88, ALT 42, alkaline phosphatase 119. BNP 46,700. Urinalysis showed small bacteria. Chest x-ray was reviewed, showed no active disease. EKG was reviewed. It showed atrial fibrillation with nonspecific ST-T wave changes and left bundle branch block. Head CT was reviewed, it showed no acute fractures, no evidence of acute infarct or CVA, no hydrocephalous. IMPRESSION: An 86-year-old female with metabolic encephalopathy in the setting of acute on chronic renal failure; chronic congestive heart failure; chronic atrial fibrillation; insulin-dependent diabetes mellitus; chronic hypertension; anemia of chronic disease; hypothyroidism; degenerative arthritis; spinal arthritis; history of vitamin D deficiency; now with elevated liver function testing, probably on the basis of passive congestion of the liver in the setting of right heart failure; rule out urinary tract infection. PLAN: The patient will have new IV placed. Her IV fluids as ordered by the emergency room physician of 0.9 saline will be discontinued given her hypernatremia, and she will be started on D5W at 125 mL/hour while monitoring her blood sugar with insulin coverage a.c. meals and h.s. She has had a swallowing evaluation and has been cleared for mechanically chopped diet, which the patient will be assisted with by aide and she will be placed on aspiration precautions as well as high fall risk protocol. She has a Hairston catheter in place and will have her I's and O's monitored. She is ordered to have medication including Lopressor 25 mg p.o. b.i.d., holding for any systolic blood pressure less than 100 or pulse less than 50. She will have Synthroid 125 mcg p.o. daily, vitamin D 2000 international units daily. She is scheduled for a comprehensive metabolic panel in the a.m., as well as a repeat hemoglobin/hematocrit and an INR in the a.m. as well. Blood and urine cultures have been sent and received. She was dosed with Rocephin earlier. She is receiving nasal O2. She has an order for physical and occupational therapy evaluation. I have asked the nursing staff to rotate the patient frequently to prevent skin breakdown, and all of the above has been discussed in detail with the patient, nursing and family. I had a lengthy discussion with her next of kin, Ember Garcia, regarding all of the above and her desires regarding code status. This will be discussed with further family members and at present, the patient remains a FULL CODE. Family is aware of her of multiple medical problems including metabolic encephalopathy, chronic systolic congestive heart failure, right heart failure, anasarca, elevated liver function testing, chronic renal failure stage 5, anemia of chronic disease, degenerative arthritis, spinal arthritis and marked deconditioning. They are aware her overall prognosis is poor. Greater than seventy five minutes was spent in the care, counseling, management, review, ordering and outlining of care for this patient today. All questions were answered. Prognosis is poor. Ioana Alvarez MD MTDD
[2017-06-28 06:40] LABS: HEMATOCRIT 32.3 % (36.0-48.0)
[2017-06-28] MEDS: Levothyroxine 125 MCG TAB PO SCH (07:00)
[2017-06-28] MEDS: Insulin Reg-LOW-Coverage SC SCH ×4 (08:24→23:43)
[2017-06-28 08:41] LABS: ALB/GLOB RATIO 0.9 (1.1-1.8); CALCIUM 11.3 mg/dL (8.4-10.5); POTASSIUM 4.3 mmol/L (3.6-5.0); TOTAL PROTEIN 7.1 g/dL (5.8-8.3)
[2017-06-28] MEDS ORDERED: cefTRIAXone 1 gm in D5W 100ml IVPB ONE (09:45)
--- NOTE | 2017-06-28 10:05 | RAD ---
HISTORY: rpaid COMPARISON: 06/26/2017 FINDINGS: LUNGS: Shallow lung volumes and leftward rotated study impede optimal assessment. Right hemidiaphragm asymmetrically elevated- are eccentric rated than before right central pulmonary mild vascular prominence - in part probably due to crowding. Mild concomitant pulmonary venous congestion possible Dense consolidation appreciated. PLEURA: Small left pleural effusion possible. No pneumothorax CARDIOVASCULAR: Moderate cardiomegaly-similar OSSEOUS STRUCTURES: Thoracic spondylosis and bilateral shoulder arthrosis VISUALIZED UPPER ABDOMEN: Normal. OTHER FINDINGS: None. IMPRESSION: Limited exam. Central pulmonary vasculature prominence - compatible with mild central pulmonary venous congestion and /or crowding Possible small left pleural effusion. Moderate cardiomegaly-similar
[2017-06-28 10:16] LABS: ARTERIAL BLOOD GAS HCO3 19.9 mmol/L (21-28); ARTERIAL BLOOD GAS PH 7.43 (7.35-7.45)
[2017-06-28 10:34] LABS: HEMATOCRIT 32.7 % (36.0-48.0); MEAN CELL VOLUME 77.3 fl (80.0-105.0); MEAN CORPUSCULAR HEMOGLOBIN 23.9 pg (25.0-35.0); MEAN CORPUSCULAR HGB CONC 30.9 g/dl (31.0-37.0); PLATELET COUNT 240 10^3/uL (120.0-450.0); RED CELL DISTRIBUTION WIDTH 22.4 % (11.5-14.5); WHITE BLOOD COUNT 7.7 10^3/ul (4.5-11.0)
[2017-06-28] MEDS: Cholecalciferol 1,000 INTLU TAB PO SCH (10:59)
[2017-06-28 11:59] LABS: CHLORIDE 116 mmol/L (98-107); GFR AFRICAN-AMERICAN 16; GLUCOSE,RANDOM 194 mg/dL (70-110); SODIUM 154 mmol/L (132-148)
[2017-06-28 12:00] LABS: ALB/GLOB RATIO 0.9 (1.1-1.8); BILIRUBIN,TOTAL 3.2 mg/dL (0.2-1.3); CALCIUM 10.9 mg/dL (8.4-10.5); CARBON DIOXIDE 17 mmol/L (21-33); MAGNESIUM 2.8 mg/dL (1.7-2.2); PHOSPHOROUS 5.9 mg/dL (2.5-4.5); TOTAL PROTEIN 7.7 g/dL (5.8-8.3)
[2017-06-28 12:01] LABS: ALKALINE PHOSPHATASE 125 U/L (38-126); ALT/SGPT 50 U/L (7-56); AST/SGOT 101 U/L (14-36); BLOOD UREA NITROGEN 129 mg/dL (7-21); TROPONIN I < 0.01 ng/mL
[2017-06-28 12:02] LABS: POTASSIUM 6.8 mmol/L (3.6-5.0)
--- NOTE | 2017-06-28 12:44 | CP.PCM.PN ---
Subjective - Date & Time of Evaluation Date of Evaluation: 06/28/17 Time of Evaluation: 11:00 - Subjective Subjective: MICU Re-consult note Patient is 86yo female with PMhx HFrEF (EF of 25% with global hypokinesis dx'ed last month), HTN, DM, CKD, hypothyroidism, GERD, Afib, dementia, with rapid progression over the last 1-2 months, a/w dehydration and AMS. This morning rapid response called for worsening of AMS. Pt was noted to be unarousable, placed on BIPAP. Upon my exam, patient is awake, alert, answering simple questions, with garbled speech (which is baseline). As per the family, patients current mental status is at baseline. No fever, chills, cough, chest pain, sob, palpitations. No other constitutional symptoms. Currently awake, alert, HD stable, afebrile. Objective - Vital Signs/Intake and Output Vital Signs (last 24 hours): Temp Pulse Resp BP Pulse Ox 97.9 F 95 H 20 131/75 95 06/28/17 06:42 06/28/17 10:01 06/28/17 06:42 06/28/17 09:15 06/28/17 06:42 Intake and Output: 06/28/17 06/28/17 06:59 18:59 Intake Total 1940 Output Total 300 Balance 1640 - Medications Medications: Current Medications Acetaminophen (Tylenol 325mg Tab) 650 mg PO Q6H PRN PRN Reason: pain or temp greater than 101 Cholecalciferol (Vitamin D) 2,000 iu PO DAILY [facility] Last Admin: 06/28/17 10:59 Dose: Not Given Dextrose (Dextrose 5% In Water) 125 mls @ 125 mls/hr IV Q8H [facility] Last Admin: 06/28/17 01:00 Dose: 125 mls/hr Insulin Human Regular (Humulin R Low) 0 units SC ACHS JARVIS PRN Reason: Protocol Last Admin: 06/28/17 12:29 Dose: Not Given Levothyroxine Sodium (Synthroid) 125 mcg PO 0600 [facility] Last Admin: 06/28/17 07:00 Dose: 125 mcg Lorazepam (Ativan) 0.5 mg PO Q8H PRN PRN Reason: Anxiety Lorazepam (Ativan) 0.5 mg IVP Q6H PRN; Protocol PRN Reason: Anxiety Metoprolol Tartrate (Lopressor) 25 mg PO BRKDIN JARVIS Last Admin: 06/28/17 09:15 Dose: Not Given Ondansetron HCl (Zofran Inj) 4 mg IVP Q6H PRN PRN Reason: Nausea/Vomiting - Labs Labs: 06/28/17 10:20 06/28/17 10:20 PT 24.5 SECONDS (9.4-12.5) H 06/26/17 23:06 INR 2.21 (0.93-1.08) H 06/26/17 23:06 APTT 29.3 Seconds (25.1-36.5) 06/26/17 23:06 - Constitutional Appears: Non-toxic, Confused - Head Exam Head Exam: NORMAL INSPECTION - Eye Exam Eye Exam: Normal appearance - ENT Exam ENT Exam: Mucous Membranes Dry - Respiratory Exam Respiratory Exam: Clear to Ausculation Bilateral, NORMAL BREATHING PATTERN - Cardiovascular Exam Cardiovascular Exam: REGULAR RHYTHM, +S1, +S2 - GI/Abdominal Exam GI & Abdominal Exam: Soft, Normal Bowel Sounds - Extremities Exam Additional comments: 3+ edema - Neurological Exam Neurological Exam: Alert, Awake - Skin Skin Exam: Dry Assessment and Plan - Assessment and Plan (Free Text) Assessment: 86yo female with dehydration, UTI, Acute on CKD, dementia AMS Dementia CKD Dehydraiton UTI Hypernatremia Hyperkalemia, hemolyzed - currently afebrile, HD stable, comfortable on 4LNC - on exam, awake, moving all 4 ext, answers very simple questions - as per family this is the patients baseline mental status - labs noted wiht hemolyzed hyperkalemia, hyperntremia, worsening renal function - has poor IV access, PICC team consulted - IVF hydration, D5W - Antibiotics - Aspiration precautions - Fall precautions - PICC - Patient is now a DNR as per Dr Alvarez - Palliative care consult - monitor on telemetry critical care time 40 minutes
--- NOTE | 2017-06-28 12:55 | PCM.RRT ---
<Tom Romero - Last Filed: 06/28/17 13:15> DONKEY ENGINE FIRER/FIREMAN Nurse Assessment - Situation Date: 06/28/17 Time DONKEY ENGINE FIRER/FIREMAN was called: 09:16 DONKEY ENGINE FIRER/FIREMAN Responder Arrival Time: 09:16 DONKEY ENGINE FIRER/FIREMAN Location:: [address] [place] [address] Room Number: [id number] DONKEY ENGINE FIRER/FIREMAN Reason for Call: Change in Mental Status DONKEY ENGINE FIRER/FIREMAN Called By: RN - IV IV Inserted during DONKEY ENGINE FIRER/FIREMAN?: No - Respiratory Oxygen Delivery Method: Nasal Cannula @L/min Oxygen Flow Rate: 4 Received Nebulizer Treatments:: No Was the Patient Ventilated with Bag/Mask 100% O2?: No Secretions Suctioned?: No Was the Patient Intubated?: No Was the Patient Placed on a Ventilator?: No - Diagnostic Test Ordered EKG: Yes Chest X-Ray: Yes CT Scan: Yes - Stat Labs Ordered DONKEY ENGINE FIRER/FIREMAN Stat Labs Ordered: CBC, BMP, TROPONIN, LACTIC ACID, ABG CPR started during DONKEY ENGINE FIRER/FIREMAN?: No - Michael Coma Scale Coma Scale Eye Opening: Spontaneous Coma Scale Motor: None Coma Scale Verbal: Confused/able to answer - Vital Signs at end of DONKEY ENGINE FIRER/FIREMAN Vital Signs at end of DONKEY ENGINE FIRER/FIREMAN: 97.1; 131/75; 85; 22rr; 90% bs: 232 - Recommendations 5) DONKEY ENGINE FIRER/FIREMAN Level of Care Recommendations: Remain in current setting Notifications: Attending Physician (Pt's PMD - Dr. Alvarez) I.Reason for DONKEY ENGINE FIRER/FIREMAN - A) Acute Change in Patient: (Select all that apply): Staff member or family is worried about patient Subjective: 86 F PMHx of cardiomyopathy with recent ECHO showing 26.7% EF and MR/TR had an DONKEY ENGINE FIRER/FIREMAN called on her because the RN stated that she was becoming less responsive. Pt's RN said that the baseline mental status is AAOX1, which has not changed, but now the patient was not responding to pain stimuli and pt was less responsive. - Neurological Status (Select all that apply): Alert, Responsive, Oriented (X1 - baseline) - Respiratory Oxygen Delivery Method: Nasal Cannula @L/min (4L) - Constitutional Appears: Unkempt, Confused, Chronically Ill - Head Head Exam: ATRAUMATIC, NORMAL INSPECTION, NORMOCEPHALIC - Eyes Eye Exam: EOMI, Normal appearance, PERRL. absent: Nystagmus, Scleral icterus - Respiratory Exam Respiratory Exam: Decreased Breath Sounds, Clear to Ausculation Bilateral - Cardiovascular Exam Cardiovascular Exam: REGULAR RHYTHM, RRR, +S1, +S2. absent: Bradycardia, Tachycardia, Clicks, Diastolic murmur, JVD - GI/Abdominal Exam GI & Abdominal Exam: Soft, Normal Bowel Sounds. absent: Bruit, Distended, Firm , Guarding, Rigid - Neurological Exam Neurological Exam: Alert, Awake, CN II-XII Intact. absent: Oriented x3 ( Oriented X 1 - baseline) - Extremities Exam Extremities Exam: Full ROM, Normal Capillary Refill, Normal Inspection, Pedal Edema. absent: Tenderness (3+ pitting edema) Plan - Assessment of Findings&Treatment Plan A/P 86 F with PMHx of CM EF 26.7% Acute Change in Mental Status - CMP, CBC, TSH, Mg, Phos, Trops, CXR, CT Head, VBG ordered - CXR showed fluid overload, exam showed fluid overload with b/l LE edema 3+, so at this time no fluid was ordered. As well, there is no IV access, so PICC line ordered - Spoke with Dr. Alvarez, PMD, who requested ICU eval, Dr. Gale c/s. Pt's family spoken with by Dr. Alvarez, pt is now DNR DNI - Lactic acid elevated - rpt ordered at 12:55 * F/u - Pt stable at this time, returned to baseline <Minh Lopez - Last Filed: 06/28/17 14:14> - Respiratory Exam Respiratory Exam: Decreased Breath Sounds - Neurological Exam Neurological Exam: absent: Alert - Extremities Exam Additional comments: bilateral LE edema Attending/Attestation - Attestation I have personally seen and examined this patient.: Yes I have fully participated in the care of the patient.: Yes I have reviewed all pertinent clinical information, including history, physical exam and plan: Yes Notes (Text): 06/28/17 14:07 86 year old female admitted with AMS, hypernatremia and UTI. DONKEY ENGINE FIRER/FIREMAN called this morning for AMS. Labs reviewed. Lactic Acid elevated. Clinically patient is fluid overloaded and cxr shows congestion. Patient has history of cardiomyopathy; fluids not ordered. Called placed to pmd Dr. Alvarez who will speak with her family. Continue with antibiotics. ICU evaluation was requested. CT head and repeat VBG was ordered. Picc or midline access was requested. Continue with antibiotics. ICU evaluation was requested. Minh Lopez MD Hospitalist.
--- NOTE | 2017-06-28 13:37 | CARD ---
APPROVED REPORT EKG Measurement Heart [id number] <Conclusion> Atrial fibrillation with rapid ventricular response Rightward axis LBBB.
--- NOTE | 2017-06-28 15:36 | RAD ---
HISTORY: s/p PICC insertion COMPARISON: 06/28/2017 FINDINGS: LUNGS: The left diaphragm not appreciated. Left pleural effusion with or without contiguous infiltrate and/or atelectasis here needed be considered. PLEURA: Left pleural effusion suspect. , no pneumothorax apparent. CARDIOVASCULAR: Moderate cardiomegaly-similar. Interval right PICC line insertion tip at cavoatrial junction OSSEOUS STRUCTURES: Thoracic spondylosis. Bilateral shoulder arthrosis VISUALIZED UPPER ABDOMEN: Normal. OTHER FINDINGS: None. IMPRESSION: Interval right PICC line insertion tip cavoatrial junction. No pneumothorax Left pleural effusion suspect -left hemidiaphragm not appreciated Moderate cardiomegaly similar
[2017-06-28 16:10] LABS: VENOUS BLOOD GAS BASE EXCESS -0.7 mmol/L (0.0-2.0); VENOUS BLOOD PH 7.39 (7.32-7.43)
[2017-06-28 16:38] LABS: CALCIUM 11.3 mg/dL (8.4-10.5); POTASSIUM 3.9 mmol/L (3.6-5.0)
[2017-06-28 16:50] LABS: INR 2.72 (0.93-1.08)
--- NOTE | 2017-06-28 17:27 | CT ---
PROCEDURE: CT HEAD WITHOUT CONTRAST. HISTORY: r/o CVA COMPARISON: Noncontrast head CT performed 06/26/17 TECHNIQUE: Axial computed tomography images were obtained through the head/brain without intravenous contrast. Radiation dose: Total exam DLP = 1495.81 mGy-cm. This CT exam was performed using one or more of the following dose reduction techniques: Automated exposure control, adjustment of the mA and/or kV according to patient size, and/or use of iterative reconstruction technique. FINDINGS: HEMORRHAGE: No intracranial hemorrhage. BRAIN: Diffuse atrophy with prominence of the ventricles and sulci noted. No mass effect or edema. Dense intracranial atherosclerosis. Scattered periventricular and subcortical white matter hypodensities, which are nonspecific, but often seen with chronic microvascular ischemic disease. Please note that MRI with diffusion imaging is more sensitive in the detection of acute ischemic event. VENTRICLES: No hydrocephalus. CALVARIUM: Unremarkable. PARANASAL SINUSES: Unremarkable as visualized. No significant inflammatory changes. MASTOID AIR CELLS: Unremarkable as visualized. No inflammatory changes. OTHER FINDINGS: None. IMPRESSION: Generalized atrophy. Nonspecific white matter changes. Please note that MRI with diffusion imaging is more sensitive in the detection of acute ischemic event.
[2017-06-28 22:22] LABS: VENOUS BLOOD GAS BASE EXCESS -0.4 mmol/L (0.0-2.0); VENOUS BLOOD PH 7.38 (7.32-7.43)
--- NOTE | 2017-06-28 23:36 | PN ---
DATE: 06/28/2017 This 86-year-old female was examined at her bedside in the presence of her daughter, Ember Garcia, her niece, Verna, and her brother, Darron. The patient had a Rapid Response called earlier this morning in the setting of altered mental status. The nursing staff found her more lethargic and the patient was noted to be unresponsive and Rapid Response was called. The patient was found without an IV access earlier today and at present is slightly more responsive and able to follow verbal commands and appears comfortable in her bed. The patient has not had a repeat CT of the head because of lack of IV access and that is in the process of being obtained with the [facility] team. The patient had multiple comorbidities including old stroke, metabolic encephalopathy, congestive heart failure, cardiomyopathy, chronic atrial fibrillation, chronic hypertension, chronic obstructive pulmonary disease, bdvam-kt-zmcxeve renal failure, anemia of chronic disease, spinal arthritis, degenerative arthritis, marked deconditioning, and failure to thrive. The family states that when the patient was at the [facility] for subacute rehab in the recent past, she was unable to cooperate with physical therapy due to marked weakness and deconditioning and also was not eating or drinking well either. This explained the patient's recent deterioration and clinical dehydration on admission. PHYSICAL EXAMINATION: VITAL SIGNS: At present, she is lying in bed, wearing nasal O2 with a temperature of 97.9, respirations 20, pulse 73, and blood pressure 131/75 and pulse ox 100%. HEENT: Head is normocephalic, atraumatic. Eyes, no icterus. Ears, clear. Throat, non-injected. NECK: Supple. HEART: Irregular S1, S2. LUNGS: Without wheezing. ABDOMEN: Soft. EXTREMITIES: Trace edema. SKIN: Without rash. No ulcers. VASCULAR: Legs warm to touch. PSYCHOLOGICAL: More alert than earlier this morning. NEURO: Responds to tactile stimulus. LABORATORY DATA: White count 7700, hemoglobin 10.1, hematocrit 32.7, platelets 240,000. Previous PT/INR 2.21. Sodium 157, K 4.3, chloride 118, bicarb 16, BUN 126, creatinine 3.3, random blood sugar 178, AST 82, bilirubin 3.0, AST 43, alkaline phosphatase 125. T4 normal at 8.0. Hepatitis A, B, C serology negative. Microbiology studies, urine culture no growth. Blood cultures, no growth at 24 hours. Repeat EKG reportedly showed atrial fibrillation. Chest x-ray was reviewed. It shows moderate cardiomegaly and possible small left pleural effusion with possible mild CHF. Abdominal ultrasound was reviewed. It showed a fatty liver. No evidence of biliary duct dilatation or biliary duct obstruction. She has asymptomatic gallstones and no evidence of hydronephrosis or renal mass or stones. No evidence of kidney mass and no evidence of kidney stones. IMPRESSION: At present ,is an 86-year-old female with multisystem failure, now with nwzkv-tv-fsuuiee renal failure, decompensated zfsls-hg-syhykke systolic congestive heart failure with evidence of biventricular systolic heart failure and comorbidities of an old stroke, chronic hypertension, atrial fibrillation, chronic obstructive pulmonary disease, jcfpy-rq-zzoerwm renal failure, prerenal azotemia, spinal arthritis, anemia of chronic disease, degenerative arthritis, spinal arthritis, hypothyroidism, insulin-dependent diabetes mellitus, and failure to thrive. I had a lengthy bedside discussion with the family including daughter, Ember Garcia, niece, Verna; and brother, Darron. All concur with DNR/DNI. They do not desire for this patient to be transferred to intensive care at this point in time. They desire a conservative compassionate course of treatment. They are agreeable to gentle IV fluids and comfort measures. I have spoken to the patient's nurse in detail. We will request a speech and swallowing evaluation with Marla Smith to find out if the patient is safe for any oral intake at this point in time. The patient will remain on aspiration and fall precautions. I have asked the nursing staff to apply an air mattress and skin care to prevent skin breakdown and I have spoken to case management, Indiana Cortez, registered nurse as well as social service to determine placement for this patient. Overall prognosis remains poor. The patient will be provided comfort measures. Greater than 35 minutes was spent in the care, coordination of care, discussion of care and review of labs, x-rays and ordering of medications for this patient today, all questions were answered. Ioana Alvarez MD [facility] # [id number] MTDD
[2017-06-29] MEDS: DEXTROSE 5% IV SCH (01:30)
[2017-06-29] MEDS: WATER IV SCH (01:30)
[2017-06-29] MEDS: Levothyroxine 125 MCG TAB PO SCH (06:17)
[2017-06-29 07:15] LABS: HEMATOCRIT 31.3 % (36.0-48.0)
[2017-06-29] MEDS: Insulin Reg-LOW-Coverage SC SCH ×3 (08:42→16:54)
[2017-06-29 08:58] LABS: CALCIUM 11.1 mg/dL (8.4-10.5); POTASSIUM 3.5 mmol/L (3.6-5.0)
[2017-06-29] MEDS ORDERED: Potassium Chloride 20 mEq/15 ml LIQ UD PO STA (12:09)
[2017-06-29] MEDS: Cholecalciferol 1,000 INTLU TAB PO SCH (12:29)
[2017-06-30] MEDS: Levothyroxine 125 MCG TAB PO SCH (05:52)
[2017-06-30 07:34] LABS: POTASSIUM 3.8 mmol/L (3.6-5.0)
[2017-06-30] MEDS: Insulin Reg-LOW-Coverage SC SCH ×4 (08:40→21:44)
--- NOTE | 2017-06-30 09:23 | PN ---
DATE: 06/29/2017 SUBJECTIVE: This 86-year-old female was examined at her bedside. This case was reviewed in detail with her nurse, Marybel Oseguera, registered nurse. The case was reviewed in detail as well with her daughter, Ember Garcia. The patient is lying in bed with a Hairston catheter draining clear yellow urine. She was more responsive earlier this morning and was fed by a public health aides teacher without difficulty. The patient is currently a DNR/DNI and has multiple medical comorbidities including metabolic encephalopathy, history of old stroke, admitted with dehydration, failure to thrive, and acute on chronic renal failure as well as advanced systolic congestive heart failure with evidence of right heart failure as well. At present, the patient is responsive only to tactile stimuli and is not able to verbally respond. air sampling and monitoring showing an atrial fibrillation rhythm on the monitor. PHYSICAL EXAMINATION: VITAL SIGNS: Temperature 97.1, respirations 20, pulse 86, blood pressure 138/76, and pulse ox is 95%. I's and O's showed an intake of 1940 mL in and the urine output of 300 mL. HEENT: Head is normocephalic, atraumatic. Eyes; no icterus. Ears; clear. Throat; noninjected. NECK: Supple. HEART: Irregular S1, S2. LUNGS: Decreased breath sounds at the bases. No wheezing, no rales, no rhonchi. ABDOMEN: Obese, nontender. No palpable organomegaly. No rebound. No guarding. No tenderness. EXTREMITIES: persistent edema. SKIN: Without rash. NEUROLOGICAL: Lethargic. VASCULAR: Legs warm to touch. PSYCHOLOGICAL: Could not be assessed. LABORATORY DATA: White count 7700, hemoglobin 9.6, hematocrit 31.3, platelets 240,000. PT/INR 2.72. Sodium 154, K 3.5, chloride 114, bicarb 23, BUN 121, creatinine 3.0, random blood sugar 203, direct bilirubin was 2.2. Hepatitis A, B, C serologies were negative. Microbiology report show urine culture with no growth, blood cultures with no growth at 48 hours. IMPRESSION AND PLAN: This is an 86-year-old female with metabolic encephalopathy in the setting of multisystem failure including acute on chronic systolic congestive heart failure with right heart failure, acute on chronic renal failure, prerenal azotemia, hypernatremia, insulin-dependent diabetes mellitus, elevated liver function testing most likely secondary to passive congestion of the liver secondary to right heart failure. The patient is currently auto-anticoagulated with a PT/INR of 2.7, also with history of hypothyroidism with a normal T4 level, and history of chronic obstructive pulmonary disease, obesity, degenerative arthritis, spinal arthritis, and unremarkable CT of the head except for cerebral atrophy. As discussed with the patient's family and nursing, Neurology consultation will be called for completeness sake. She remains on an air mattress with skin precautions, aspiration precautions, fall precautions and will require a Hairston catheter given her incontinence at present. She is ordered to have soft hand mitts for prevention of patient pulling at PICC line as well as Hairston catheter in the setting of metabolic encephalopathy. Also she is receiving bedside physical therapy and an aide is feeding her all meals as able. She is ordered to have a pureed diet with thin liquids as able. She is ordered to have BiPAP. She will continue on Synthroid, Lopressor, D5W IV and p.r.n. Ativan for agitation as well as insulin coverage. She will have repeat labs and INR in the a.m. and remains DNR/DNI as discussed with family and nursing. Her prognosis is extremely poor. She will be provided comfort measures and supportive care. Greater than fifty minutes was spent in the care, review of x-rays, labs, medication, outlining of care, and discussion of this patient's progress with nursing and family today. All questions were answered. Ioana Alvarez MD MTDD
[2017-06-30] MEDS: Cholecalciferol 1,000 INTLU TAB PO SCH (10:43)
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
[2017-07-01] MEDS: Levothyroxine 125 MCG TAB PO SCH (05:54)
[2017-07-01 06:56] LABS: ALB/GLOB RATIO 0.7 (1.1-1.8); CALCIUM 11.2 mg/dL (8.4-10.5); TOTAL PROTEIN 7.2 g/dL (5.8-8.3)
[2017-07-01 06:57] LABS: HEMATOCRIT 32.1 % (36.0-48.0); MEAN CELL VOLUME 76.4 fl (80.0-105.0); MEAN CORPUSCULAR HEMOGLOBIN 23.8 pg (25.0-35.0); MEAN CORPUSCULAR HGB CONC 31.2 g/dl (31.0-37.0); PLATELET COUNT 222 10^3/uL (120.0-450.0); POTASSIUM 4.1 mmol/L (3.6-5.0); RED CELL DISTRIBUTION WIDTH 22.5 % (11.5-14.5); WHITE BLOOD COUNT 9.2 10^3/ul (4.5-11.0)
[2017-07-01 07:24] LABS: INR 1.92 (0.93-1.08)
[2017-07-01] MEDS: Insulin Reg-LOW-Coverage SC SCH ×4 (07:30→22:44)
[2017-07-01] MEDS: Cholecalciferol 1,000 INTLU TAB PO SCH (10:03)
[2017-07-01] MEDS ORDERED: Dextrose 5%/0.9% NS 1,000 ML IV SCH (10:15)
--- NOTE | 2017-07-01 17:09 | CON ---
DATE: 07/01/2017 INDICATIONS: Anasarca, hypernatremia, and congestive heart failure. HISTORY OF PRESENT ILLNESS: This is an 86-year-old woman known to us from her prior hospitalization, admitted on 06/27/2015, transfer from nursing facility with altered mental status, metabolic encephalopathy, fever, renal failure, and anasarca. She is admitted to telemetry. She remains hypernatremic. Cardiac consultation was requested. She is DNR/DNI. Hemodialysis has been considered, but has been declined by the family. Currently, the patient is somnolent, resting in bed with a BiPAP mask. There is no chest pain reported. She is intermittently agitated. There is no syncope reported. She is in chronic atrial fibrillation. PAST MEDICAL HISTORY: Extensive, it includes coronary artery disease, myocardial infarction, severe LV dysfunction. An echocardiogram during the last admission demonstrated anterior septal dyskinesis with apical akinesis and severe overall LV dysfunction. There was also severe mitral regurgitation and moderately severe tricuspid regurgitation. She has a history of anasarca, chronic kidney disease, hypertension, diabetes, peptic ulcer disease, obesity, hypothyroidism, anemia, and stroke. MEDICATIONS: At the time of admission included Demadex, aspirin, iron, folic acid, insulin, Lasix, metoprolol, Pepcid, Plavix, Protonix, levothyroxine, Tradjenta, vitamin B12, vitamin D, and lisinopril. Her current medications include insulin coverage, IV Lasix, metoprolol, levothyroxine, Tylenol, vitamin D, and Zofran. ALLERGIES: THERE IS AN ALLERGY TO IBUPROFEN NOTED. SOCIAL HISTORY: She was in a nursing facility. Prior to that, she lived at home. She does not smoke cigarettes or drink alcohol significantly. FAMILY HISTORY: Notable for heart disease and stroke. REVIEW OF SYSTEMS: A 10-point review of systems is limited due to lethargy. I have reviewed her current and prior hospital records. PHYSICAL EXAMINATION: GENERAL: She is an elderly woman, lying in bed, on telemetry, in no acute distress. VITAL SIGNS: Notable for atrial fibrillation at 86 to 101 beats per minute. She is afebrile. Blood pressure 107/67, respirations 20 to 22, O2 sat 93% to 100% on a 50% BiPAP mask. HEENT: Reveals positive neck vein distention. No thyromegaly. No carotid bruits. Mucous membranes moist. Conjunctivae pink. NECK: Supple. CHEST: Lung delcid, scattered rhonchi. HEART: Revealed distant heart sounds. Normal first and second heart sound with an irregular rate. PMI was not palpable. ABDOMEN: Obese and benign. EXTREMITIES: Positive for extensive edema. NEUROLOGIC: She is lethargic. PSYCHIATRIC: Not assessed. SKIN: Warm and dry. LABORATORY AND IMAGING: The initial chest x-ray showed cardiomegaly with no active pulmonary disease. A followup chest x-ray on the 06/28/2017 revealed mild central pulmonary venous congestion, possible small left pleural effusion. A repeat chest x-ray showed PICC line present. EKG demonstrates atrial fibrillation, poor R wave progression, left bundle-branch block, no change from a prior EKG. CT scan of the head shows nonspecific white matter changes. A followup CT on 06/28/2017 is noted, apparently there was no change. Abdominal ultrasound on 06/27/2017 revealed cholelithiasis, mild generalized ascites, thickened gallbladder wall, hepatomegaly with diffuse fatty infiltration, etc. White count is normal, hemoglobin 10, hematocrit 32, and platelet count normal. PT/INR today are 21.4 and 1.92. Blood gasses are noted. Sodium 155, potassium 4.1, chloride 116, carbon dioxide 25, BUN 119, and creatinine 2.4. Calcium is elevated. Bilirubin is elevated. Mild elevation of AST. Blood cultures are no growth at 4 days. Urine cultures, no growth. ASSESSMENT: Silvia Monet is an 86-year-old woman with coronary artery disease status post myocardial infarction with severe left ventricular dysfunction, congestive heart failure, anasarca, acute and chronic kidney disease, hypernatremia, and atrial fibrillation. PLAN: I have discussed the case with Dr. Alvarez. The patient is DNR/DNI and the family has declined a course of hemodialysis or ultrafiltration. We will continue IV Lasix. I would give free water in order to slowly correct the hypernatremia. I would monitor labs frequently. I would continue metoprolol, and insulin coverage. Monitor I's and O's, stool for occult blood, INR's (not on warfarin). She is having neurologic evaluation. I will follow along with you. I will make additional recommendations based on her clinical course. Overall, a conservative course of cardiac care is anticipated. Marty Baker MD [facility] # [id number] ANGEL
--- NOTE | 2017-07-01 23:00 | PN ---
DATE: 07/01/2017 SUBJECTIVE: This 86-year-old female was examined at her bedside. This case was reviewed in detail with herself and her nurse who was present for the interview. The patient remains lethargic, was wearing a CPAP mask, was minimally responsive and able to move all extremities with tactile stimulus. There were no reports of fever, chills, chest pain, shortness of breath, hemoptysis, hematemesis or melena. She is draining clear yellow urine via of a Hairston catheter but remains markedly weak and deconditioned. She was fed earlier this morning with the assistance of a assistant in nursing. There was no report of aspiration or swallowing difficulty. PHYSICAL EXAMINATION: VITAL SIGNS: Temperature 98.1, respirations 18, pulse 86, blood pressure 125/57, pulse ox 100%. quality assurance monitor shows atrial fibrillation. Urine output was 1600 mL in the past 24 hours. HEENT: Head: Normocephalic, atraumatic. Eyes: No icterus. Ears: Clear. Throat: Noninjected. NECK: Supple. HEART: Irregular S1, S2. LUNGS: No wheezing. ABDOMEN: Obese, nontender. No palpable organomegaly. EXTREMITIES: 2 to 3+ pitting edema. VASCULAR: Legs warm to touch. PSYCHOLOGICAL: Not assessed. NEURO: Grossly deconditioned. Able to move extremities with tactile stimulus. VASCULAR: Legs warm to touch. LABORATORY DATA: White count 9200, hemoglobin 10, hematocrit 32.1, platelets 222,000. PT/INR 1.92. Sodium 155, K 4.1, chloride 116, bicarb 25, BUN 119, creatinine 2.4, random blood sugar 186. Bilirubin 2.0, AST 48, ALT 37, alk phos 111. Hepatitis A, B, C serology negative. Most recent chest x-ray, mild CHF, left pleural effusion. Repeat head CT, no evidence of acute stroke. Abdominal ultrasound consistent with fatty liver, gallstones. No evidence of hydronephrosis, generalized ascites. No evidence of biliary tract obstruction. EKG, chronic atrial fibrillation with nonspecific ST-T wave changes. IMPRESSION: An 86-year-old female with decompensated acute on chronic systolic congestive heart failure with evidence of right heart failure in the setting of chronic severe mitral regurgitation and chronic atrial fibrillation, comorbidities of chronic renal failure, prerenal azotemia in the setting of decompensated congestive heart failure, insulin-dependent diabetes mellitus, chronic hypertension, hypothyroidism, anemia of chronic disease, obesity, degenerative arthritis, spinal arthritis, metabolic encephalopathy and hypernatremia, chronic obstructive pulmonary disease. PLAN: The plan as discussed with the patient's family, nursing, Dr. Baker from cardiology and Dr. Joe from neurology is to maintain patient at high fall risk protocol, maintain Hairston catheter to prevent skin breakdown and to accurately measure I's and O's. The patient remains on aspiration precautions and has an air mattress in place and is receiving skin care to prevent breakdown. She remains on a pureed diet with thin liquids as tolerated while maintaining aspiration precautions and she is wearing BiPAP. She continues on Synthroid, Lopressor IV Lasix, insulin coverage and D5W at 70 mL/hour. Our plan is to match her urine output with replacement of D5W IV in hopes of improving her hypernatremia. Family has declined any consideration of dialysis intervention. The patient remains a DNR/DNI. Overall, prognosis remains extremely poor. The patient will be treated in a conservative compassionate way. Ultimate plan is for return to her [facility] rehab environment when medically stable. Greater than 35 minutes was spent in the care, coordination of care, discussion of care, review of x-rays, labs and ordering of interventions for this patient today. All questions were answered. Ioana Alvarez MD MTDRamy
[2017-07-02] MEDS: Levothyroxine 125 MCG TAB PO SCH (05:16)
[2017-07-02 06:29] LABS: CALCIUM 11.2 mg/dL (8.4-10.5); POTASSIUM 3.3 mmol/L (3.6-5.0)
--- NOTE | 2017-07-02 08:04 | CP.PCM.PN ---
Subjective - Date & Time of Evaluation Date of Evaluation: 07/02/17 Time of Evaluation: 07:00 - Subjective Subjective: Stable on 3R. Slept with N/C. Seems more awake. I spoke with her bedside nurse. V/S noted. AF. PE: Lungs: rhonchi Cor: irreg S1S2 Abd.: soft Ext.: + edema Neuro: awake I/O= 1080/700 scene shifter. Full 24 hr total N/A. Labs: Na+= 156, K+= 3.3, BUN= 116, Cr.= 2.3 Objective - Vital Signs/Intake and Output Vital Signs (last 24 hours): Temp Pulse Resp BP Pulse Ox 97.5 F L 69 21 129/67 99 07/02/17 06:02 07/02/17 06:02 07/02/17 06:02 07/02/17 06:02 07/02/17 06:02 Intake and Output: 07/02/17 07/02/17 06:59 18:59 Intake Total 1080 Output Total 700 Balance 380 - Medications Medications: Current Medications Acetaminophen (Tylenol 325mg Tab) 650 mg PO Q6H PRN PRN Reason: pain or temp greater than 101 Last Admin: 07/02/17 05:16 Dose: 650 mg Cholecalciferol (Vitamin D) 2,000 iu PO DAILY [facility] Last Admin: 07/01/17 10:03 Dose: 2,000 iu Furosemide (Lasix) 40 mg IVP DAILY [facility] Dextrose (Dextrose 5% In Water 1000 Ml) 1,000 mls @ 100 mls/hr IV .Q10H [facility] Insulin Human Regular (Humulin R Low) 0 units SC ACHS [facility] PRN Reason: Protocol Last Admin: 07/01/17 22:44 Dose: Not Given Levothyroxine Sodium (Synthroid) 125 mcg PO 0600 [facility] Last Admin: 07/02/17 05:16 Dose: 125 mcg Metoprolol Tartrate (Lopressor) 25 mg PO BRKDIN [facility] Last Admin: 07/01/17 17:31 Dose: Not Given Ondansetron HCl (Zofran Inj) 4 mg IVP Q6H PRN PRN Reason: Nausea/Vomiting - Labs Labs: 07/01/17 06:00 07/02/17 05:45 PT 21.4 SECONDS (9.4-12.5) H 07/01/17 06:00 INR 1.92 (0.93-1.08) H 07/01/17 06:00 APTT 29.3 Seconds (25.1-36.5) 06/26/17 23:06 Assessment and Plan - Assessment and Plan (Free Text) Assessment: AMS/Metabolic Encephalopathy Dyspnea/Edema/Anasarca Hypernatremia Prolonged INR due to hepatic dysfunction. Chronic AF, not on A/C CAD/KS/Severe LVD with severe MR and mod./sev. TR Acute on chronic kidney disease HBP PUD Obesity Hypothyroidism Anemia DNR/DNI/No HD Plan: Lasix to 40 daily Increase D5W: 100 cc/hr. trial Monitor BMP daily Daily I/O's OOB to chair as zack. Case D/W Dr. Alvarez yesterday Will follow Prognosis extremely limited
[2017-07-02] MEDS: Insulin Reg-LOW-Coverage SC SCH ×4 (08:39→22:35)
[2017-07-02] MEDS ORDERED: Potassium Chloride 20 mEq ER Tab PO ONE (09:00)
[2017-07-02] MEDS ORDERED: Potassium Chloride 10 mEq ER Tab PO ONE (11:30)
[2017-07-02] MEDS: Cholecalciferol 1,000 INTLU TAB PO SCH (11:39)
[2017-07-03] MEDS: Levothyroxine 125 MCG TAB PO SCH (06:00)
[2017-07-03 07:59] LABS: CALCIUM 11.2 mg/dL (8.4-10.5); POTASSIUM 3.7 mmol/L (3.6-5.0)
--- NOTE | 2017-07-03 08:02 | CP.PCM.PN ---
Subjective - Date & Time of Evaluation Date of Evaluation: 07/03/17 Time of Evaluation: 07:00 - Subjective Subjective: Stable on 3R. Slept with BiPap mask. Seems more awake. I spoke with her bedside nurse. V/S noted. AF. PE: Lungs: rhonchi Cor: irreg S1S2 Abd.: soft Ext.: + edema Neuro: awake I/O= 1100 cc. according to her nurse. Labs 07/02 noted: Na+= 156, K+= 3.3, BUN= 116, Cr.= 2.3. Today's labs pending. Objective - Vital Signs/Intake and Output Vital Signs (last 24 hours): Temp Pulse Resp BP Pulse Ox 97.7 F 85 20 112/71 95 07/03/17 06:00 07/03/17 06:00 07/03/17 06:00 07/03/17 06:00 07/03/17 06:00 Intake and Output: 07/03/17 07/03/17 06:59 18:59 Intake Total 1200 Output Total 450 Balance 750 - Medications Medications: Current Medications Acetaminophen (Tylenol 325mg Tab) 650 mg PO Q6H PRN PRN Reason: pain or temp greater than 101 Last Admin: 07/02/17 18:17 Dose: 650 mg Cholecalciferol (Vitamin D) 2,000 iu PO DAILY [facility] Last Admin: 07/02/17 11:39 Dose: 2,000 iu Furosemide (Lasix) 40 mg IVP DAILY [facility] Last Admin: 07/02/17 11:38 Dose: 40 mg Dextrose (Dextrose 5% In Water 1000 Ml) 1,000 mls @ 100 mls/hr IV .Q10H [facility] Last Admin: 07/03/17 06:00 Dose: 100 mls/hr Insulin Human Regular (Humulin R Low) 0 units SC ACHS [facility] PRN Reason: Protocol Last Admin: 07/02/17 22:35 Dose: 1 units Levothyroxine Sodium (Synthroid) 125 mcg PO 0600 [facility] Last Admin: 07/03/17 06:00 Dose: 125 mcg Metoprolol Tartrate (Lopressor) 25 mg PO BRKDIN [facility] Last Admin: 07/02/17 18:14 Dose: 25 mg Ondansetron HCl (Zofran Inj) 4 mg IVP Q6H PRN PRN Reason: Nausea/Vomiting - Labs Labs: 07/01/17 06:00 07/02/17 05:45 PT 21.4 SECONDS (9.4-12.5) H 07/01/17 06:00 INR 1.92 (0.93-1.08) H 07/01/17 06:00 APTT 29.3 Seconds (25.1-36.5) 06/26/17 23:06 Assessment and Plan - Assessment and Plan (Free Text) Assessment: AMS/Metabolic Encephalopathy Dyspnea/Edema/Anasarca Hypernatremia Prolonged INR due to hepatic dysfunction. Chronic AF, not on A/C CAD/[place]/Severe LVD with severe MR and mod./sev. TR Acute on chronic kidney disease HBP PUD Obesity Hypothyroidism Anemia DNR/DNI/No HD Plan: Await AM labs. Continue Lasix 40 mg. daily for now Continue D5W: 100 cc/hr. trial Monitor BS's Monitor BMP daily Daily I/O's OOB to chair as zack. Will follow Prognosis extremely limited
--- NOTE | 2017-07-03 08:07 | PN ---
DATE: 06/30/2017 SUBJECTIVE: This 86-year-old female was examined at her bedside. Her case was reviewed in detail with her nurse and her daughter, Ember Garcia in detail. The patient remains lethargic. She was dosed with Ativan according to the nursing staff last evening because of agitation. At present she remains lethargic, but she was able to respond to verbal commands upon questioning her this morning. According to nursing staff, the patient could not eat because of lethargy. The patient remains in atrial fibrillation, rhythm on the order filler. OBJECTIVE: VITAL SIGNS: She has a temperature of 97.7, respirations 20, pulse 93 and blood pressure 126/68 with a pulse ox of 96%. Urine output has been 525 mL thus far today. HEENT: Head is normocephalic and atraumatic. Eyes: No icterus. Ears: Clear. Throat: Noninjected. NECK: Supple. HEART: Irregular S1 and S2. LUNGS: With basilar rales. ABDOMEN: Obese and nontender. EXTREMITIES: 3+ pitting edema. SKIN: Without rash. NEUROLOGICAL: Lethargic. PSYCHOLOGICAL: Could not be assessed. VASCULAR: Legs warm to touch. LABORATORY DATA: Hemoglobin 9.6 and hematocrit 31.3. PT/INR was 2.72. Sodium 153, K 3.8 chloride 114, bicarb 25, BUN 114, creatinine 2.6, and random blood sugar was 198. Hepatitis A, B, and C serology negative. Urine culture, no growth. Blood culture, no growth at 3 days. Chest x-ray shows pulmonary vascular congestion and a left pleural effusion. IMPRESSION: This is an 86-year-old female with acute on chronic systolic congestive heart failure, right heart failure, acute on chronic renal failure, prerenal azotemia in the setting of congestive heart failure with metabolic encephalopathy, insulin-dependent diabetes mellitus, chronic hypertension, hypothyroidism, degenerative arthritis, spinal arthritis, chronic obstructive pulmonary disease, anasarca, electrolyte imbalances, and anemia of chronic disease. PLAN: I had a lengthy conversation with the patient's daughter, Ember Garcia in the presence of her nurse Cydney Schwartz, registered nurse. The family at present declines any consideration of hemodialysis for further management of renal failure, electrolyte imbalance as well as congestive heart failure and anasarca. The patient remains a DNR/DNI. The family was informed that her overall prognosis is extremely poor and guarded. She will continue to receive conservative compassionate care. Case management did discuss hospice for this patient with the family. They declined hospice and at present, the patient is awaiting Cardiology and Neuro reevaluations. She will continue to be treated with a air mattress, Hairston catheter will be maintained for Is and Os and prevention of urinary incontinence and skin breakdown. She remains on high fall risk protocol and aspiration precautions. She will have repeat comprehensive metabolic panel, INR, and CBC in the a.m. Medications will be administered as able including insulin coverage a.c. meals and at bedtime, Lasix 40 mg IV q.12 hours, metoprolol 25 mg b.i.d., Synthroid 125 mcg p.o. daily, and Tylenol p.r.n. pain or fever. The patient is ordered to receive nasal O2 and BiPAP as tolerated. As discussed with the family, overall prognosis is extremely poor. They declined hemodialysis at present and the patient will be continued to be monitored cautiously on a daily basis. Greater than fifty minutes was spent in the care, counseling, management, review of labs, discussion with co-consultants, nursing case management, social service, and family for this patient today and all questions were answered. Ioana Alvarez MD MTDD
--- NOTE | 2017-07-03 08:12 | PN ---
CARMENZA: 07/02/2017 SUBJECTIVE: This 86-year-old female was examined at the bedside in the presence of her nurse and family members. She is more alert today. She is wearing CPAP and remains bedridden. Because of marked deconditioning and renal failure she requires a Hairston catheter because of urinary incontinence and the risk of skin breakdown. The patient has multiple ongoing medical problems including decompensated acute on chronic systolic congestive heart failure with severe mitral regurgitation resulting in right heart failure with evidence of elevated liver function testing and generalized worsening anasarca. The patient has episodes of metabolic encephalopathy where she is lethargic and is markedly weak and debilitated and requires assistance with all activities of daily living. PHYSICAL EXAMINATION: VITAL SIGNS: awake overnight monitor shows atrial fibrillation. Temperature is 97.5, respirations 21, pulse 69, blood pressure 129/67. Pulse ox 99%. Urine output 700 m: for the past shift. HEENT: Head: Normocephalic, atraumatic. Eyes: No icterus. Ears: Clear. Throat: Noninjected. NECK: Supple. HEART: Irregular S1, S2. LUNGS: With basilar rales. ABDOMEN: Obese. EXTREMITIES: 3+ edema. SKIN: No breakdown. VASCULAR: Legs warm to touch. PSYCHOLOGICAL: Eyes are open. NEUROLOGIC: Can follow verbal commands. Marked deconditioning, marked chronic motor weakness of upper and lower extremities. LABORATORY DATA: White count 9200, hemoglobin 10, hematocrit 32.1, platelets 222,000. Sodium 156, K 3.3, chloride 115, bicarb 28, BUN 116, creatinine 2.3. Estimated GFR 24 mL per minute. Random blood sugar 261. Hepatitis A, B, C serology negative. Recent chest x-ray, CHF, pleural effusion, no evidence of pneumonia. Head CT, no evidence of acute infarct. Abdominal ultrasound, fatty liver. No evidence of hydronephrosis. EKG: Chronic atrial fibrillation. Liver ultrasound, cholelithiasis, gallstones, generalized ascites, fatty infiltration of liver. No evidence of biliary obstruction. IMPRESSION: An 86-year-old female with multiple medical problems including [id number] advanced systolic congestive heart failure, right heart failure, severe mitral regurgitation, elevated liver function testing in the setting of fatty liver, right heart failure with no evidence of biliary tract obstruction on abdominal ultrasound. Also, with history of asymptomatic gallstones, insulin-dependent diabetes mellitus, hypernatremia, hypokalemia, chronic renal failure stage V. hypertension, hypothyroidism, spinal arthritis, degenerative arthritis, marked deconditioning, anasarca, chronic obstructive pulmonary disease. PLAN: At present as discussed with the patient, nursing, and family at bedside is to continue DNR/DNI conservative compassionate care. She remains with a Hairston catheter and I have asked the nursing staff to continue strict Is and Os. She will remain on high-risk fall protocol, aspiration precautions and an air mattress and skin care to prevent skin breakdown. She is receiving bedside therapy for range of motion. She remains on a pureed diet with thin liquids with aspiration precautions and BiPAP procedure daily. MEDICATIONS: Will include Synthroid, Lopressor, IV Lasix, oral potassium, insulin coverage and D5W at 100 mL/hour while monitoring for signs of respiratory decompensation. The patient did receive rectal enema with good results. She is scheduled to have a basic metabolic panel repeated in the a.m., and she has an order for soft wrist restraints to prevent her from pulling out IVs and Hairston catheters. Greater than 35 minutes was spent in the care, counseling, review of x-rays, labs, ordering of testing and discussion of this patient with Cardiology, Neurology, family and nursing. All questions were answered. Overall prognosis remains poor. Ioana Alvarez MD MTD
[2017-07-03] MEDS: Insulin Reg-LOW-Coverage SC SCH (08:51)
[2017-07-03] MEDS: Cholecalciferol 1,000 INTLU TAB PO SCH (09:09)
[2017-07-03] MEDS: Insulin Reg-MEDIUM-Coverage SC SCH ×3 (12:46→22:26)
--- NOTE | 2017-07-03 14:15 | CP.PCM.PN ---
<Ghislaine Bonilla - Last Filed: 07/03/17 17:44> Subjective - Date & Time of Evaluation Date of Evaluation: 07/03/17 Time of Evaluation: 09:00 - Subjective Subjective: PGY-2 Neurology progress note for Dr. Joe's service Patient seen and examined at bedside. No acute distress. Patient is on bipap. She is is responsive to pain and verbal stimuli. Per family and nursing staff she is less responsive this morning. Objective - Vital Signs/Intake and Output Vital Signs (last 24 hours): Temp Pulse Resp BP Pulse Ox 97.5 F L 80 19 141/63 95 07/03/17 13:43 07/03/17 13:43 07/03/17 13:43 07/03/17 13:43 07/03/17 06:00 Intake and Output: 07/03/17 07/03/17 06:59 18:59 Intake Total 1200 Output Total 450 Balance 750 - Medications Medications: Current Medications Acetaminophen (Tylenol 325mg Tab) 650 mg PO Q6H PRN PRN Reason: pain or temp greater than 101 Last Admin: 07/02/17 18:17 Dose: 650 mg Cholecalciferol (Vitamin D) 2,000 iu PO DAILY [facility] Last Admin: 07/03/17 09:09 Dose: 2,000 iu Furosemide (Lasix) 40 mg IVP DAILY [facility] Last Admin: 07/03/17 09:08 Dose: 40 mg Dextrose (Dextrose 5% In Water 1000 Ml) 1,000 mls @ 100 mls/hr IV .Q10H [facility] Last Admin: 07/03/17 06:00 Dose: 100 mls/hr Insulin Human Regular (Humulin R Med) 0 units SC ACHS [facility] PRN Reason: Protocol Last Admin: 07/03/17 12:46 Dose: 8 units Levothyroxine Sodium (Synthroid) 125 mcg PO 0600 [facility] Last Admin: 07/03/17 06:00 Dose: 125 mcg Metoprolol Tartrate (Lopressor) 25 mg PO BRKDIN [facility] Last Admin: 07/03/17 08:52 Dose: 25 mg Ondansetron HCl (Zofran Inj) 4 mg IVP Q6H PRN PRN Reason: Nausea/Vomiting - Labs Labs: 07/01/17 06:00 07/03/17 06:15 PT 21.4 SECONDS (9.4-12.5) H 07/01/17 06:00 INR 1.92 (0.93-1.08) H 07/01/17 06:00 APTT 29.3 Seconds (25.1-36.5) 06/26/17 23:06 - Constitutional Appears: No Acute Distress - Head Exam Head Exam: ATRAUMATIC, NORMAL INSPECTION, NORMOCEPHALIC - Eye Exam Eye Exam: Normal appearance - Respiratory Exam Respiratory Exam: Clear to Ausculation Bilateral, NORMAL BREATHING PATTERN. absent: Respiratory Distress - Cardiovascular Exam Cardiovascular Exam: REGULAR RHYTHM - Neurological Exam Neurological Exam: Alert. absent: Oriented x3 Assessment and Plan - Assessment and Plan (Free Text) Assessment: 86 yo female with PMH of atherosclerotic heart disease, CHF, hypertension, GERD , diabetes, hypothyroidism, CVA and iron deficiency anemia presents with altered mental status most likely secondary to metabolic encephalpathy due to metabolic derangements, and hepatic dysfunction 1. AMS 2. acute on chronic renal failure 3. CHF with lower extremity edema 4. hypernatremia 5. diabetes - CT head was negative - previous MRI showed infarct in left temporal lobe - EEG completed - Continue to monitor BP - correct metabolic derangements slowly - maintain blood sugar 140-180 - gentle hydration - avoid sedative medication to prevent decline in mental status - follow up cardio recommendation - consider [id number] or plaxiv 75mg for stroke prevents due to atherosclerosis Patient seen and case discussed/reviewed with attending, Dr. Joe <Randall Joe - Last Filed: 07/03/17 18:02> Objective - Vital Signs/Intake and Output Vital Signs (last 24 hours): Temp Pulse Resp BP Pulse Ox 97.5 F L 80 19 141/63 95 07/03/17 13:43 07/03/17 16:37 07/03/17 13:43 07/03/17 16:37 07/03/17 06:00 Intake and Output: 07/03/17 07/03/17 06:59 18:59 Intake Total 1200 600 Output Total 450 550 Balance 750 50 - Medications Medications: Current Medications Acetaminophen (Tylenol 325mg Tab) 650 mg PO Q6H PRN PRN Reason: pain or temp greater than 101 Last Admin: 07/02/17 18:17 Dose: 650 mg Cholecalciferol (Vitamin D) 2,000 iu PO DAILY [facility] Last Admin: 07/03/17 09:09 Dose: 2,000 iu Furosemide (Lasix) 40 mg IVP DAILY [facility] Last Admin: 07/03/17 09:08 Dose: 40 mg Dextrose (Dextrose 5% In Water 1000 Ml) 1,000 mls @ 100 mls/hr IV .Q10H [facility] Last Admin: 07/03/17 06:00 Dose: 100 mls/hr Insulin Human Regular (Humulin R Med) 0 units SC ACHS [facility] PRN Reason: Protocol Last Admin: 07/03/17 16:37 Dose: 7 units Levothyroxine Sodium (Synthroid) 125 mcg PO 0600 [facility] Last Admin: 07/03/17 06:00 Dose: 125 mcg Metoprolol Tartrate (Lopressor) 25 mg PO BRKDIN [facility] Last Admin: 07/03/17 16:37 Dose: 25 mg Ondansetron HCl (Zofran Inj) 4 mg IVP Q6H PRN PRN Reason: Nausea/Vomiting - Labs Labs: 07/01/17 06:00 07/03/17 06:15 PT 21.4 SECONDS (9.4-12.5) H 07/01/17 06:00 INR 1.92 (0.93-1.08) H 07/01/17 06:00 APTT 29.3 Seconds (25.1-36.5) 06/26/17 23:06 Attending/Attestation - Attestation I have personally seen and examined this patient.: Yes I have fully participated in the care of the patient.: Yes I have reviewed all pertinent clinical information, including history, physical exam and plan: Yes
[2017-07-03] MEDS ORDERED: Insulin Reg-MEDIUM-Coverage SC SCH ×2 (16:30)
[2017-07-04] MEDS: Levothyroxine 125 MCG TAB PO SCH (06:47)
--- NOTE | 2017-07-04 07:45 | CP.PCM.PN ---
Subjective - Date & Time of Evaluation Date of Evaluation: 07/04/17 Time of Evaluation: 07:00 - Subjective Subjective: Stable on 3R. Slept with BiPap mask. Seems more awake. I spoke with her bedside nurse. V/S noted. AF. PE: Lungs: rhonchi Cor: irreg S1S2 Abd.: soft Ext.: + edema Neuro: awake I/O= 1550 cc. according to her nurse. Labs 07/03 noted: Na+= 149, Cr.= 2.2. Today's labs pending. Objective - Vital Signs/Intake and Output Vital Signs (last 24 hours): Temp Pulse Resp BP Pulse Ox 97.8 F 86 20 139/86 98 07/04/17 06:00 07/04/17 06:00 07/04/17 06:00 07/04/17 06:00 07/04/17 06:00 - Medications Medications: Current Medications Acetaminophen (Tylenol 325mg Tab) 650 mg PO Q6H PRN PRN Reason: pain or temp greater than 101 Last Admin: 07/02/17 18:17 Dose: 650 mg Cholecalciferol (Vitamin D) 2,000 iu PO DAILY [facility] Last Admin: 07/03/17 09:09 Dose: 2,000 iu Furosemide (Lasix) 40 mg IVP DAILY [facility] Last Admin: 07/03/17 09:08 Dose: 40 mg Dextrose (Dextrose 5% In Water 1000 Ml) 1,000 mls @ 100 mls/hr IV .Q10H [facility] Last Admin: 07/04/17 06:47 Dose: 100 mls/hr Insulin Human Regular (Humulin R Med) 0 units SC ACHS [facility] PRN Reason: Protocol Last Admin: 07/03/17 22:26 Dose: 2 units Levothyroxine Sodium (Synthroid) 125 mcg PO 0600 [facility] Last Admin: 07/04/17 06:47 Dose: 125 mcg Metoprolol Tartrate (Lopressor) 25 mg PO BRKDIN [facility] Last Admin: 07/03/17 16:37 Dose: 25 mg Ondansetron HCl (Zofran Inj) 4 mg IVP Q6H PRN PRN Reason: Nausea/Vomiting - Labs Labs: 07/01/17 06:00 07/03/17 06:15 PT 21.4 SECONDS (9.4-12.5) H 07/01/17 06:00 INR 1.92 (0.93-1.08) H 07/01/17 06:00 APTT 29.3 Seconds (25.1-36.5) 06/26/17 23:06 Assessment and Plan - Assessment and Plan (Free Text) Assessment: AMS/Metabolic Encephalopathy Dyspnea/Edema/Anasarca Hypernatremia, improved Prolonged INR due to hepatic dysfunction. 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 TR Acute on chronic kidney disease HBP PUD Obesity Hypothyroidism Anemia DNR/DNI/No HD Plan: Await AM labs. Continue Lasix 40 mg. daily for now Continue D5W: 100 cc/hr. trial Monitor BS's Monitor BMP daily Daily I/O's As per Neuro. and Dr. Alvarez. SAMMY to chair as zack. Will follow Prognosis extremely limited
[2017-07-04] MEDS: Insulin Reg-MEDIUM-Coverage SC SCH ×4 (07:58→21:33)
[2017-07-04 08:01] LABS: POTASSIUM 3.7 mmol/L (3.6-5.0)
--- NOTE | 2017-07-04 08:12 | PN ---
DATE: 07/03/2017 SUBJECTIVE: This 86-year-old female was examined at the bedside in the presence of her nurse, Marybel Oseguera, registered nurse. The patient is more lethargic today, but was able to eat breakfast earlier with the assistance of nursing staff. They have had no reports of chest pain, fever, chills, or seizures. The patient remains bedridden with multiple medical problems including acute on chronic systolic congestive heart failure, right heart failure, chronic renal failure, anemia of chronic disease, hypernatremia, bedridden status and metabolic encephalopathy. The patient is cared for by her family. She was recently admitted to a subacute rehab for multiple medical comorbidities and marked deconditioning. She was readmitted to the [facility] for altered mental status and the above-mentioned medical comorbidities. OBJECTIVE: GENERAL: At present, she is unable to verbally respond. VITAL SIGNS: She is in atrial fibrillation rhythm on the monitor technician. Her temperature is 97.7, respirations 20, pulse 85, and blood pressure 122/90 with a pulse ox of 95%. Urine output was 1100 mL yesterday. HEENT: Head is normocephalic, atraumatic. Eyes: No icterus. Ears: Clear. Throat: Noninjected. NECK: Supple. HEART: Irregular S1, S2. LUNGS: Decreased breath sounds at both bases. ABDOMEN: Obese. EXTREMITIES: A 2+ pitting edema bilaterally. SKIN: Warm and dry. VASCULAR: Legs warm to touch. PSYCHOLOGICAL: Lethargic. NEUROLOGIC: Able to move all four extremities to tactile stimulus. LABORATORY DATA: White count 9200, hemoglobin 10, hematocrit 32.1, platelets 222,000. PT/INR 1.92. Sodium 149, K 3.7, chloride 111, bicarb 25, BUN 118, creatinine 2.2, random blood sugar 357. Hepatitis A, B, C serology negative. Microbiology; urine culture, no growth. Blood culture, no growth. Chest x-ray showed congestive heart failure. CT of the head shows no evidence of acute stroke. IMPRESSION: This is an 86-year-old female with multiple medical problems including acute on chronic decompensated systolic congestive heart failure, right heart failure, hypernatremia, prerenal azotemia, chronic renal failure, insulin-dependent diabetes mellitus, hypertension, hypothyroidism, history of old stroke, degenerative arthritis, spinal arthritis, obesity, hypothyroidism, and chronic obstructive pulmonary disease. PLAN: At present is to maintain the patient on the cardiac unit. She is currently wearing antiembolism sequential compression device stockings as a prevention for bilateral lower extremity DVT. She continues on aspiration precautions, air mattress, skin care, fall precautions and Hairston catheter for urinary incontinence and the prevention of skin breakdown in the setting of metabolic encephalopathy, congestive heart failure, and chronic renal failure. She will continue on a pureed diet with thin liquids to be assisted with all meals as neurologically able. She continues with BiPAP and will continue on Synthroid, Lopressor, IV Lasix, moderate insulin coverage a.c. meals and at bedtime protocol and D5W at 100 mL an hour while monitoring I's and O's. She is ordered to have a repeat basic metabolic panel in the a.m. She has an order for soft wrist restraints to prevent her from pulling out her IV or Hairston catheter. She continues to be a DNR/DNI. The family declined any aggressive intervention or consideration of renal dialysis to better manage her fluid and electrolyte imbalance and fluid overload. Overall prognosis is extremely poor. Greater than 35 minutes was spent in the care management, counseling, review of this patient and her progress with nursing, Cardiology, and family. All questions were answered. Ioana Alvarez MD MTDRamy
[2017-07-04] MEDS: Cholecalciferol 1,000 INTLU TAB PO SCH (10:00)
--- NOTE | 2017-07-04 10:21 | CP.PCM.PN ---
<Ghislaine Bonilla - Last Filed: 07/04/17 17:10> Subjective - Date & Time of Evaluation Date of Evaluation: 07/04/17 Time of Evaluation: 09:00 - Subjective Subjective: PGY-2 Neurology progress note for Dr. Joe's service Patient seen and examined at bedside. No acute distress. She is alert and responsive to pain and verbal stimuli. She is more response this morning however continues to be confused. Objective - Vital Signs/Intake and Output Vital Signs (last 24 hours): Temp Pulse Resp BP Pulse Ox 97.8 F 83 20 139/86 98 07/04/17 06:00 07/04/17 08:10 07/04/17 06:00 07/04/17 08:10 07/04/17 06:00 Intake and Output: 07/04/17 07/04/17 06:59 18:59 Intake Total 1000 100 Output Total 1000 Balance 1000 -900 - Medications Medications: Current Medications Acetaminophen (Tylenol 325mg Tab) 650 mg PO Q6H PRN PRN Reason: pain or temp greater than 101 Last Admin: 07/02/17 18:17 Dose: 650 mg Cholecalciferol (Vitamin D) 2,000 iu PO DAILY [facility] Last Admin: 07/03/17 09:09 Dose: 2,000 iu Furosemide (Lasix) 40 mg IVP DAILY [facility] Last Admin: 07/03/17 09:08 Dose: 40 mg Dextrose (Dextrose 5% In Water 1000 Ml) 1,000 mls @ 75 mls/hr IV .[id number] [facility] Insulin Human Regular (Humulin R Med) 0 units SC ACHS [facility] PRN Reason: Protocol Last Admin: 07/04/17 07:58 Dose: 7 units Levothyroxine Sodium (Synthroid) 125 mcg PO 0600 [facility] Last Admin: 07/04/17 06:47 Dose: 125 mcg Metoprolol Tartrate (Lopressor) 25 mg PO BRKDIN [facility] Last Admin: 07/04/17 08:10 Dose: 25 mg Ondansetron HCl (Zofran Inj) 4 mg IVP Q6H PRN PRN Reason: Nausea/Vomiting - Labs Labs: 07/01/17 06:00 07/04/17 07:00 PT 21.4 SECONDS (9.4-12.5) H 07/01/17 06:00 INR 1.92 (0.93-1.08) H 07/01/17 06:00 APTT 29.3 Seconds (25.1-36.5) 06/26/17 23:06 - Constitutional Appears: Well, No Acute Distress - Head Exam Head Exam: ATRAUMATIC, NORMAL INSPECTION, NORMOCEPHALIC - Eye Exam Eye Exam: EOMI, Normal appearance - ENT Exam ENT Exam: Mucous Membranes Moist - Respiratory Exam Respiratory Exam: Clear to Ausculation Bilateral, NORMAL BREATHING PATTERN. absent: Rhonchi, Wheezes, Respiratory Distress - Cardiovascular Exam Cardiovascular Exam: REGULAR RHYTHM. absent: Tachycardia - Extremities Exam Additional comments: + 1 pitting edema bilateral lower extremities - Neurological Exam Neurological Exam: Alert, Awake. absent: Oriented x3 Assessment and Plan - Assessment and Plan (Free Text) Assessment: 86 yo female with PMH of atherosclerotic heart disease, CHF, hypertension, GERD , diabetes, hypothyroidism, CVA and iron deficiency anemia presents with altered mental status most likely secondary to metabolic encephalpathy due to metabolic derangements, and hepatic dysfunction 1. AMS 2. acute on chronic renal failure 3. CHF with lower extremity edema 4. hypernatremia 5. diabetes - CT head was negative - previous MRI showed infarct in left temporal lobe - MRI ordered - EEG completed - Continue to monitor BP - correct metabolic derangements slowly - maintain blood sugar 140-180, blood sugar not controlled - gentle hydration - avoid sedative medication to prevent decline in mental status - follow up cardio recommendation - consider [id number] or plaxiv 75mg for stroke prevents due to atherosclerosis Patient seen and case discussed/reviewed with attending, Dr. Joe <Randall Joe - Last Filed: 07/04/17 18:04> Objective - Vital Signs/Intake and Output Vital Signs (last 24 hours): Temp Pulse Resp BP Pulse Ox 98.6 F 77 18 112/79 98 07/04/17 12:00 07/04/17 12:00 07/04/17 12:00 07/04/17 12:00 07/04/17 06:00 Intake and Output: 07/04/17 07/04/17 06:59 18:59 Intake Total 1000 100 Output Total 1000 Balance 1000 -900 - Medications Medications: Current Medications Acetaminophen (Tylenol 325mg Tab) 650 mg PO Q6H PRN PRN Reason: pain or temp greater than 101 Last Admin: 07/04/17 12:28 Dose: 650 mg Cholecalciferol (Vitamin D) 2,000 iu PO DAILY [facility] Last Admin: 07/04/17 10:00 Dose: 2,000 iu Furosemide (Lasix) 40 mg IVP Q12 [facility] Dextrose (Dextrose 5% In Water 1000 Ml) 1,000 mls @ 40 mls/hr IV .Q24H [facility] Last Admin: 07/04/17 12:18 Dose: 40 mls/hr Insulin Human Regular (Humulin R Med) 0 units SC ACHS [facility] PRN Reason: Protocol Last Admin: 07/04/17 17:34 Dose: 7 units Levothyroxine Sodium (Synthroid) 125 mcg PO 0600 [facility] Last Admin: 07/04/17 06:47 Dose: 125 mcg Metoprolol Tartrate (Lopressor) 25 mg PO BRKDIN [facility] Last Admin: 07/04/17 17:39 Dose: 25 mg Ondansetron HCl (Zofran Inj) 4 mg IVP Q6H PRN PRN Reason: Nausea/Vomiting - Labs Labs: 07/01/17 06:00 07/04/17 07:00 PT 21.4 SECONDS (9.4-12.5) H 07/01/17 06:00 INR 1.92 (0.93-1.08) H 07/01/17 06:00 APTT 29.3 Seconds (25.1-36.5) 06/26/17 23:06 Attending/Attestation - Attestation I have personally seen and examined this patient.: Yes I have fully participated in the care of the patient.: Yes I have reviewed all pertinent clinical information, including history, physical exam and plan: Yes
--- NOTE | 2017-07-04 23:27 | PN ---
DATE: 07/04/2017 SUBJECTIVE: This 86-year-old female was examined at the bedside. This case was reviewed in detail with herself, nursing, Marybel Oseguera as well as case management, nurse practitioner and Dr. Marty Baker from Cardiology. The patient remains bedridden. She is being treated supportively for multiple comorbidities including acute on chronic decompensated systolic congestive heart failure, severe mitral regurgitation, right heart failure, anasarca in the setting of chronic congestive heart failure, chronic renal failure, hypothyroidism, degenerative arthritis, obesity, spinal arthritis and chronic anemia. The patient has episodes of delirium and metabolic encephalopathy. She requires 24 hours supervision for all feeding fluids and meds. She is unable to ambulate at the present time and is essentially bedridden, which prompts the need for her Hairston catheter for prevention of skin breakdown due to urinary incontinence. She is in atrial fibrillation rhythm on the implementation consultant. There have been no reports of fever, chills, chest pain, cough or shortness of breath. There have been no reports of hematemesis or melena and she is being fed a pureed diet with thin liquids by a custodial aide. PHYSICAL EXAMINATION VITAL SIGNS: Temperature 97.8, respirations 20, pulse 83, blood pressure 139/86. Pulse ox 98%. Urine output 1550 mL. Atrial fibrillation on implementation consultant. HEAD: Normocephalic, atraumatic. HEENT: Eyes: No icterus. Ears: Clear. Throat: Noninjected. NECK: Supple. HEART: Irregular S1, S2. LUNGS: Decreased breath sounds at the bases. ABDOMEN: Obese. EXTREMITIES: 2+ pitting edema. SKIN: Without rash. NEUROLOGICAL: Able to move all four extremities to tactile stimulus. Marked deconditioning. PSYCHOLOGICAL: Chronic anxiety. Delerium. Unable to answer appropriately. VASCULAR: Legs warm to touch. LABORATORY DATA: White count 9200, hemoglobin 10, hematocrit 32.1, platelets 222,000. Sodium 148, K 3.7, chloride 111, bicarb 26, BUN 115, creatinine 1.9, random blood sugar 341. PT/INR 1.92. Hepatitis A, B, C serology negative. Latest chest x-ray shows left pleural effusion, atelectasis, no pneumothorax, cardiomegaly. IMPRESSION: This is an 86-year-old female with decompensated acute on chronic systolic congestive heart failure with history of right heart failure, mitral regurgitation, anasarca, fatty liver, chronic renal failure, hypothyroidism, hypernatremia, insulin-dependent diabetes mellitus, chronic hypertension, hypothyroidism, degenerative arthritis, spinal arthritis, now with elevated INR in the setting of auto-anticoagulation secondary to right heart failure and passive congestion of the liver. PLAN: The plan at present is to continue to maintain this patient on a pureed diet with thin liquids while maintaining aspiration precautions. She is wearing antiembolism sequential compression device stockings for DVT prevention. She is ordered to have strict Is and Os, fall precautions, aspiration precautions and is on an air mattress. She is wearing and has orders for BiPAP. She has been ordered to have a brain MRI without contrast by Dr. Randall Joe from Neurology for further evaluation of her metabolic encephalopathy. She continues on medication including vitamin D, Synthroid, metoprolol tartrate, IV Lasix, insulin coverage and D5W will be decreased to 40 mL/hour, while continuing Lasix 40 mg IV q. 12 as discussed with nursing staff. The patient will have strict Is and Os, a repeat basic metabolic panel in the a.m. I talked to case management. Although she is DNR/DNI the family does not want hospice and she will need to have Social Service evaluate this patient for retirement placement versus subacute rehab. All of the above was discussed in detail with nursing, Physical Therapy, Cardiology, nurse practitioner and greater than 35 minutes was spent in the care, review of x-rays, labs orders and consultative reports for this patient today. All questions were answered. Overall prognosis remains extremely poor. Ioana Alvarez MD [facility]
[2017-07-05] MEDS: Levothyroxine 125 MCG TAB PO SCH (05:35)
[2017-07-05 07:03] LABS: INR 1.9 (0.93-1.08)
[2017-07-05 07:12] LABS: CALCIUM 11.2 mg/dL (8.4-10.5); POTASSIUM 3.7 mmol/L (3.6-5.0)
[2017-07-05] MEDS: Insulin Reg-MEDIUM-Coverage SC SCH ×4 (08:11→22:26)
[2017-07-05] MEDS: Cholecalciferol 1,000 INTLU TAB PO SCH (10:08)
--- NOTE | 2017-07-05 15:22 | CP.PCM.PN ---
<Ghislaine Bonilla - Last Filed: 07/05/17 17:26> Subjective - Date & Time of Evaluation Date of Evaluation: 07/05/17 Time of Evaluation: 09:00 - Subjective Subjective: PGY-2 Neurology progress note for Dr. Joe's service Patient seen and examined at bedside. No acute distress. She is alert and responsive to pain and verbal stimuli. However she is confused and not answering questions of following commends Objective - Vital Signs/Intake and Output Vital Signs (last 24 hours): Temp Pulse Resp BP Pulse Ox 98.1 F 63 20 188/142 H 100 07/05/17 12:00 07/05/17 12:00 07/05/17 12:00 07/05/17 12:00 07/05/17 09:00 Intake and Output: 07/05/17 07/05/17 06:59 18:59 Intake Total 180 Output Total 600 Balance -420 - Medications Medications: Current Medications Acetaminophen (Tylenol 325mg Tab) 650 mg PO Q6H PRN PRN Reason: pain or temp greater than 101 Last Admin: 07/05/17 10:32 Dose: 650 mg Cholecalciferol (Vitamin D) 2,000 iu PO DAILY [facility] Last Admin: 07/05/17 10:08 Dose: 2,000 iu Famotidine (Pepcid) 20 mg PO HS [facility] Furosemide (Lasix) 40 mg IVP Q12 [facility] Last Admin: 07/05/17 10:09 Dose: 40 mg Dextrose (Dextrose 5% In Water 1000 Ml) 1,000 mls @ 40 mls/hr IV .Q24H [facility] Last Admin: 07/05/17 12:32 Dose: Not Given Insulin Detemir (Levemir) 10 unit SC ACD [facility] Insulin Human Regular (Humulin R Med) 0 units SC ACHS [facility] PRN Reason: Protocol Last Admin: 07/05/17 11:56 Dose: 5 units Levothyroxine Sodium (Synthroid) 125 mcg PO 0600 [facility] Last Admin: 07/05/17 05:35 Dose: 125 mcg Metoprolol Tartrate (Lopressor) 25 mg PO BRKDIN [facility] Last Admin: 07/05/17 08:10 Dose: 25 mg Ondansetron HCl (Zofran Inj) 4 mg IVP Q6H PRN PRN Reason: Nausea/Vomiting - Labs Labs: 07/01/17 06:00 07/05/17 06:30 PT 21.2 SECONDS (9.4-12.5) H 07/05/17 06:30 INR 1.90 (0.93-1.08) H 07/05/17 06:30 APTT 29.3 Seconds (25.1-36.5) 06/26/17 23:06 - Constitutional Appears: No Acute Distress - Head Exam Head Exam: ATRAUMATIC, NORMAL INSPECTION, NORMOCEPHALIC - Eye Exam Eye Exam: Normal appearance - ENT Exam ENT Exam: Mucous Membranes Moist - Respiratory Exam Respiratory Exam: Clear to Ausculation Bilateral, NORMAL BREATHING PATTERN. absent: Wheezes, Respiratory Distress - Cardiovascular Exam Cardiovascular Exam: REGULAR RHYTHM - GI/Abdominal Exam GI & Abdominal Exam: Soft. absent: Tenderness - Extremities Exam Extremities Exam: Normal Inspection Additional comments: + 1 pitting edema - Neurological Exam Neurological Exam: Alert, Awake. absent: Oriented x3 Additional comments: patient is responsive to verbal and painful stimuli, no following commends, no answering question appropriately Assessment and Plan - Assessment and Plan (Free Text) Assessment: 86 yo female with PMH of atherosclerotic heart disease, CHF, hypertension, GERD , diabetes, hypothyroidism, CVA and iron deficiency anemia presents with altered mental status most likely secondary to metabolic encephalpathy due to metabolic derangements, and hepatic dysfunction 1. AMS 2. acute on chronic renal failure 3. CHF with lower extremity edema 4. hypernatremia- improved 5. diabetes - CT head was negative - previous MRI showed infarct in left temporal lobe - MRI was unable to be completed due to pain - EEG completed - Continue to monitor BP - correct metabolic derangements slowly, improved - maintain blood sugar 140-180, blood sugar not controlled - gentle hydration - avoid sedative medication to prevent decline in mental status - follow up cardio recommendation - consider asa8 1mg or plaxiv 75mg for stroke prevents due to atherosclerosis - consider PALMER - SCDs for DVT ppx Patient seen and case discussed/reviewed with attending, Dr. Joe <Randall Joe - Last Filed: 07/05/17 19:51> Objective - Vital Signs/Intake and Output Vital Signs (last 24 hours): Temp Pulse Resp BP Pulse Ox 98.4 F 74 20 109/67 100 07/05/17 18:00 07/05/17 18:00 07/05/17 18:00 07/05/17 18:00 07/05/17 18:00 - Medications Medications: Current Medications Acetaminophen (Tylenol 325mg Tab) 650 mg PO Q6H PRN PRN Reason: pain or temp greater than 101 Last Admin: 07/05/17 10:32 Dose: 650 mg Cholecalciferol (Vitamin D) 2,000 iu PO DAILY [facility] Last Admin: 07/05/17 10:08 Dose: 2,000 iu Famotidine (Pepcid) 20 mg PO HS [facility] Furosemide (Lasix) 40 mg IVP Q12 [facility] Last Admin: 07/05/17 10:09 Dose: 40 mg Dextrose (Dextrose 5% In Water 1000 Ml) 1,000 mls @ 40 mls/hr IV .Q24H [facility] Last Admin: 07/05/17 12:32 Dose: Not Given Insulin Detemir (Levemir) 10 unit SC ACD [facility] Last Admin: 07/05/17 17:44 Dose: 10 unit Insulin Human Regular (Humulin R Med) 0 units SC ACHS [facility] PRN Reason: Protocol Last Admin: 07/05/17 17:18 Dose: 3 units Levothyroxine Sodium (Synthroid) 125 mcg PO 0600 [facility] Last Admin: 07/05/17 05:35 Dose: 125 mcg Metoprolol Tartrate (Lopressor) 25 mg PO BRKDIN [facility] Last Admin: 07/05/17 17:41 Dose: 25 mg Ondansetron HCl (Zofran Inj) 4 mg IVP Q6H PRN PRN Reason: Nausea/Vomiting - Labs Labs: 07/01/17 06:00 07/05/17 06:30 PT 21.2 SECONDS (9.4-12.5) H 07/05/17 06:30 INR 1.90 (0.93-1.08) H 07/05/17 06:30 APTT 29.3 Seconds (25.1-36.5) 06/26/17 23:06 Attending/Attestation - Attestation I have personally seen and examined this patient.: Yes I have fully participated in the care of the patient.: Yes I have reviewed all pertinent clinical information, including history, physical exam and plan: Yes
[2017-07-05] MEDS ORDERED: Insulin Detemir 100 units/ml Vial (Levemir) SC SCH (16:30)
[2017-07-06] MEDS: Levothyroxine 125 MCG TAB PO SCH (06:00)
[2017-07-06] MEDS: Insulin Reg-MEDIUM-Coverage SC SCH ×4 (08:15→21:25)
--- NOTE | 2017-07-06 08:23 | PN ---
DATE: 07/05/2017 SUBJECTIVE: This 86-year-old female was examined at her bedside and her case was discussed in a private conference with immediate family members including daughter, Ember; daughter, Mary; brother, Caden; niece; and granddaughter, Mary. Approximately 1 hour was spent in the conference for this patient today. The patient remains bedridden, requiring soft wrist restraints to prevent her from pulling out IV and Hairston catheter. Hairston catheter though recently removed has been requested to be replaced by family because of concerns of urinary incontinence and skin breakdown. The patient continues with confusional state in the setting of delirium and metabolic encephalopathy all in the setting of multisystem failure. The patient when I examined her this morning was confused. Eyes were open, she was unable to verbally respond, but was able to move all four extremities with tactile stimulus. monitoring analyst is showing chronic atrial fibrillation. OBJECTIVE: VITAL SIGNS: Temperature 97.6, respirations 19, pulse 71, and blood pressure 112/66 with a pulse ox of 100% on BiPAP. Urine output was not accurately recorded yesterday. HEENT: Head; normocephalic and atraumatic. Eyes; no icterus. Ears clear. Throat noninjected. NECK: Supple. HEART: Irregular S1 and S2. LUNGS: Decreased breath sounds at the bases. ABDOMEN: Obese, soft, no rebound. EXTREMITIES: 2+ pitting edema. SKIN: Without rash. VASCULAR: Legs warm to touch. PSYCHOLOGICAL: Confused. NEUROLOGIC: Marked deconditioning. Moves all four extremities to tactile stimulus. LABORATORY DATA: White count 9200, hemoglobin 10, hematocrit 32.1, and platelets 222,000. PT/INR 1.90. Chemistry; sodium 147, K 3.7, chloride 110, bicarb 27, BUN 112, creatinine 1.8, and random blood sugar 260. Stool for occult blood positive. Hepatitis A, B, and C serology negative. IMPRESSION: This is an 86-year-old female with multisystem failure, metabolic encephalopathy, confusional state and delirium in the setting of acute on chronic decompensated systolic congestive heart failure with mitral regurgitation, right heart failure, passive congestion of the liver causing elevated liver function testing and autoanticoagulation with an elevated PT/INR on no anticoagulation, also with chronic renal failure, anemia of chronic disease, degenerative arthritis, spinal arthritis, history of hypothyroidism, now with stool occult blood positive in the setting of anemia of chronic disease, probably secondary to gastritis, marked deconditioning, and insulin-dependent diabetes mellitus. PLAN: As discussed with family is to maintain DNR/DNI. Hairston catheter will be reinserted because of urine incontinence and concerns of skin breakdown. The patient continues on D5W at 40 mL/hour, insulin coverage a.c. meals and at bedtime medium protocol dosing, Lasix 40 mg IV q.12 hours, Lopressor 25 mg b.i.d., Pepcid 20 mg p.o. at bedtime, Synthroid 125 mcg p.o. daily, and Tylenol p.r.n. pain or fever. The patient is not a candidate for endoscopy or colonoscopy. She refused MRI. She will be ordered to have physical therapy and to be out of bed to chair with comfort measures. She is ordered to have BiPAP, soft bland diet, and pureed with thin liquids. She continues on air mattress, aspiration precautions, fall precautions, and skin precautions. She is wearing antiembolism sequential compression device stockings. I have discussed with case management to outlined disposition for this patient with the family. Overall prognosis is poor. This case was discussed in great detail for almost sixty minutes with the patient, family as outlined above, and her PMD, Dr. Aguilar. His phone number [phone]. All questions were answered. Prognosis remains poor. Ioana Alvarez MD [facility]
--- NOTE | 2017-07-06 09:47 | CP.PCM.PN ---
<Ghislaine Bonilla - Last Filed: 07/06/17 12:21> Subjective - Date & Time of Evaluation Date of Evaluation: 07/06/17 Time of Evaluation: 09:46 - Subjective Subjective: PGY-2 Neurology progress note for Dr. Joe's service Patient seen and examined at bedside. No acute distress. Patient is more alert and awake this morning however she is not oriented. She complaining of general pain. Objective - Vital Signs/Intake and Output Vital Signs (last 24 hours): Temp Pulse Resp BP Pulse Ox 97.3 F L 85 20 125/79 100 07/06/17 06:00 07/06/17 08:16 07/06/17 06:00 07/06/17 08:16 07/06/17 06:00 Intake and Output: 07/06/17 07/06/17 06:59 18:59 Intake Total 1120 Output Total 800 500 Balance 320 -500 - Medications Medications: Current Medications Acetaminophen (Tylenol 325mg Tab) 650 mg PO Q6H PRN PRN Reason: pain or temp greater than 101 Last Admin: 07/05/17 10:32 Dose: 650 mg Cholecalciferol (Vitamin D) 2,000 iu PO DAILY [facility] Last Admin: 07/05/17 10:08 Dose: 2,000 iu Famotidine (Pepcid) 20 mg PO HS [facility] Last Admin: 07/05/17 22:26 Dose: 20 mg Furosemide (Lasix) 40 mg IVP Q12 [facility] Last Admin: 07/05/17 22:32 Dose: 40 mg Dextrose (Dextrose 5% In Water 1000 Ml) 1,000 mls @ 40 mls/hr IV .Q24H [facility] Last Admin: 07/06/17 01:39 Dose: 40 mls/hr Insulin Detemir (Levemir) 10 unit SC ACD [facility] Last Admin: 07/05/17 17:44 Dose: 10 unit Insulin Human Regular (Humulin R Med) 0 units SC ACHS [facility] PRN Reason: Protocol Last Admin: 07/06/17 08:15 Dose: 5 units Levothyroxine Sodium (Synthroid) 125 mcg PO 0600 [facility] Last Admin: 07/06/17 06:00 Dose: 125 mcg Metoprolol Tartrate (Lopressor) 25 mg PO BRKDIN [facility] Last Admin: 07/06/17 08:16 Dose: 25 mg Ondansetron HCl (Zofran Inj) 4 mg IVP Q6H PRN PRN Reason: Nausea/Vomiting - Labs Labs: 07/01/17 06:00 07/05/17 06:30 PT 21.2 SECONDS (9.4-12.5) H 07/05/17 06:30 INR 1.90 (0.93-1.08) H 07/05/17 06:30 APTT 29.3 Seconds (25.1-36.5) 06/26/17 23:06 - Constitutional Appears: No Acute Distress - Head Exam Head Exam: ATRAUMATIC, NORMAL INSPECTION, NORMOCEPHALIC - Eye Exam Eye Exam: EOMI, Normal appearance - ENT Exam ENT Exam: Mucous Membranes Moist - Respiratory Exam Respiratory Exam: Clear to Ausculation Bilateral, NORMAL BREATHING PATTERN. absent: Rhonchi, Wheezes, Respiratory Distress - Cardiovascular Exam Cardiovascular Exam: REGULAR RHYTHM - Neurological Exam Neurological Exam: Alert, Awake, CN II-XII Intact. absent: Oriented x3 Neuro motor strength exam: Left Upper Extremity: 5, Right Upper Extremity: 5, Left Lower Extremity: 5, Right Lower Extremity: 5 - Skin Skin Exam: Dry, Intact, Normal Color, Warm Assessment and Plan - Assessment and Plan (Free Text) Assessment: 86 yo female with PMH of atherosclerotic heart disease, CHF, hypertension, GERD , diabetes, hypothyroidism, CVA and iron deficiency anemia presents with altered mental status most likely secondary to metabolic encephalpathy due to metabolic derangements, and hepatic dysfunction 1. AMS 2. acute on chronic renal failure 3. CHF with lower extremity edema 4. hypernatremia- improved 5. diabetes - CT head was negative - previous MRI showed infarct in left temporal lobe - MRI was unable to be completed due to pain - Continue to monitor BP - correct metabolic derangements slowly, improved - maintain blood sugar 140-180, blood sugar not controlled but improving - gentle hydration - avoid sedative medication to prevent decline in mental status - follow up cardio recommendation - consider asa8 1mg or plaxiv 75mg for stroke prevents due to atherosclerosis - continue bipap at night - consider PALMER - SCDs for DVT ppx case discussed and reviewed with attending, Dr. Joe <Randall Joe - Last Filed: 07/06/17 18:00> Objective - Vital Signs/Intake and Output Vital Signs (last 24 hours): Temp Pulse Resp BP Pulse Ox 98.0 F 81 18 124/82 100 07/06/17 12:00 07/06/17 12:00 07/06/17 12:00 07/06/17 17:38 07/06/17 06:00 Intake and Output: 07/06/17 07/06/17 06:59 18:59 Intake Total 1120 360 Output Total 800 1600 Balance 320 -1240 - Medications Medications: Current Medications Acetaminophen (Tylenol 325mg Tab) 650 mg PO Q6H PRN PRN Reason: pain or temp greater than 101 Last Admin: 07/06/17 11:47 Dose: 650 mg Cholecalciferol (Vitamin D) 2,000 iu PO DAILY [facility] Last Admin: 07/06/17 10:05 Dose: 2,000 iu Famotidine (Pepcid) 20 mg PO HS [facility] Last Admin: 07/05/17 22:26 Dose: 20 mg Furosemide (Lasix) 40 mg IVP Q12 [facility] Last Admin: 07/06/17 10:05 Dose: 40 mg Dextrose (Dextrose 5% In Water 1000 Ml) 1,000 mls @ 40 mls/hr IV .Q24H [facility] Last Admin: 07/06/17 11:48 Dose: Not Given Insulin Detemir (Levemir) 15 unit SC ACBD [facility] Last Admin: 07/06/17 17:40 Dose: 15 unit Insulin Human Regular (Humulin R Med) 0 units SC ACHS [facility] PRN Reason: Protocol Last Admin: 07/06/17 17:39 Dose: 8 units Levothyroxine Sodium (Synthroid) 125 mcg PO 0600 [facility] Last Admin: 07/06/17 06:00 Dose: 125 mcg Metoprolol Tartrate (Lopressor) 25 mg PO BRKDIN [facility] Last Admin: 07/06/17 17:38 Dose: 25 mg Ondansetron HCl (Zofran Inj) 4 mg IVP Q6H PRN PRN Reason: Nausea/Vomiting - Labs Labs: 07/01/17 06:00 07/05/17 06:30 PT 21.2 SECONDS (9.4-12.5) H 07/05/17 06:30 INR 1.90 (0.93-1.08) H 07/05/17 06:30 APTT 29.3 Seconds (25.1-36.5) 06/26/17 23:06 Attending/Attestation - Attestation I have personally seen and examined this patient.: Yes I have fully participated in the care of the patient.: Yes I have reviewed all pertinent clinical information, including history, physical exam and plan: Yes
[2017-07-06] MEDS: Cholecalciferol 1,000 INTLU TAB PO SCH (10:05)
--- NOTE | 2017-07-06 14:26 | PN ---
DATE: 07/06/2017 SUBJECTIVE: This 86-year-old female was examined at the bedside in the presence of her daughter, Ember Garcia. The patient remains comfortable but confused. She denies any chest pain, shortness breath, fever or chills. She is draining clear yellow urine via her Hairston catheter and remains in a atrial fibrillation rhythm on the kosher sealer. She remains DNR/DNI and has been seen by Social Service, who has informed the family that she will need to be considered for subacute rehab versus snf placement. PHYSICAL EXAMINATION: VITAL SIGNS: At present, monitor shows atrial fibrillation. Temperature 97.3, respirations 20, pulse 85, blood pressure 125/79, pulse ox 100%. Urine output has been 1300 mL. HEENT: Head: Normocephalic, atraumatic. Eyes: No icterus. Ears: Clear. Throat: Noninjected. NECK: Supple. HEART: Irregular S1, S2. LUNGS: Decreased breath sounds. ABDOMEN: Soft. EXTREMITIES: 2+ pitting edema. The patient is wearing sequential anti-embolism stockings. VASCULAR: Legs warm to touch. SKIN: Without rash. NEUROLOGICAL: Lethargy. PSYCHOLOGICAL: Confusion. LABORATORY DATA: White count 9200, hemoglobin 10, hematocrit 32.1, platelets 222,000. PT/INR 1.90. Random blood sugar 298. Sodium 147, potassium 3.1, chloride 110, bicarb 27, BUN 112, creatinine 1.8. Hepatitis A, B, C serology negative. IMPRESSION: An 86-year-old female with decompensated [id number] systolic congestive heart failure with mitral: regurgitation, right heart failure, passive congestion of the liver, elevated INR on the basis of decompensated liver function in the setting of right heart failure, also with chronic renal failure, insulin-dependent diabetes mellitus, anemia of chronic disease, probable gastritis, hypothyroidism, degenerative arthritis, spinal arthritis, metabolic encephalopathy, and confusion. She also has chronic obstructive pulmonary disease. PLAN: As discussed with the family is to continue her pureed diet with thin liquids while maintaining aspiration precautions as her mental status allows. She is ordered to have BiPAP, air mattress, aspiration precautions, fall precautions, skin care precautions and Hairston catheter for I's and O's, and prevention of skin breakdown. She is wearing anti-embolism sequential compression device stockings. She has an order for soft limb wrist restraints for the prevention of disruption of her IV access and Hairston catheter. The family has been informed when they are present that this can be removed and they can monitor her so that she will not pull out her medication lines. She continues on medication, including Synthroid, Pepcid, Lopressor, Levemir insulin, IV Lasix, insulin coverage, and D5W at 40 mL/hour while monitoring I's and O's. She is scheduled for basic metabolic panel and hemoglobin/hematocrit in the a.m. The patient remains DNR/DNI. Overall prognosis remains guarded. The family is working with Social Service regarding disposition and it is their desire that she be treated in a conservative compassionate way with no aggressive testings or intervention. Greater than 35 minutes was spent in the care, review of care, discussion of care with this patient, nursing, Social Service, Case Management, family members, and review of labs, x-rays and progress reports from co-consultants. All questions were answered. Ioana Alvarez MD MTDD
[2017-07-06] MEDS: Insulin Detemir 100 units/ml Vial (Levemir) SC SCH (17:40)
[2017-07-07] MEDS: Levothyroxine 125 MCG TAB PO SCH (05:56)
[2017-07-07 07:11] LABS: HEMATOCRIT 28.8 % (36.0-48.0)
[2017-07-07 07:59] LABS: CALCIUM 11.2 mg/dL (8.4-10.5); POTASSIUM 3.9 mmol/L (3.6-5.0)
--- NOTE | 2017-07-07 08:28 | CP.PCM.PN ---
Subjective - Date & Time of Evaluation Date of Evaluation: 07/07/17 Time of Evaluation: 07:00 - Subjective Subjective: Stable on 3R. Slept with BiPap mask. V/S noted. AF. PE: Lungs: rhonchi Cor: irreg S1S2 Abd.: soft Ext.: + edema Neuro: awake I/O= 850/2400 Labs noted: Na+= 144, K+= 3.9, Cr.= 1.7, BUN= 112. Objective - Vital Signs/Intake and Output Vital Signs (last 24 hours): Temp Pulse Resp BP Pulse Ox 97.6 F 78 20 146/79 100 07/07/17 06:00 07/07/17 06:00 07/07/17 06:00 07/07/17 06:00 07/07/17 06:00 Intake and Output: 07/07/17 07/07/17 06:59 18:59 Intake Total 480 Output Total 900 Balance -420 - Medications Medications: Current Medications Acetaminophen (Tylenol 325mg Tab) 650 mg PO Q6H PRN PRN Reason: pain or temp greater than 101 Last Admin: 07/06/17 18:19 Dose: 650 mg Cholecalciferol (Vitamin D) 2,000 iu PO DAILY [facility] Last Admin: 07/06/17 10:05 Dose: 2,000 iu Famotidine (Pepcid) 20 mg PO HS [facility] Last Admin: 07/06/17 21:25 Dose: 20 mg Furosemide (Lasix) 40 mg IVP Q12 [facility] Last Admin: 07/06/17 21:25 Dose: 40 mg Dextrose (Dextrose 5% In Water 1000 Ml) 1,000 mls @ 40 mls/hr IV .Q24H [facility] Last Admin: 07/07/17 02:18 Dose: 40 mls/hr Insulin Detemir (Levemir) 15 unit SC ACBD [facility] Last Admin: 07/06/17 17:40 Dose: 15 unit Insulin Human Regular (Humulin R Med) 0 units SC ACHS [facility] PRN Reason: Protocol Last Admin: 07/06/17 21:25 Dose: 3 units Levothyroxine Sodium (Synthroid) 125 mcg PO 0600 [facility] Last Admin: 07/07/17 05:56 Dose: 125 mcg Metoprolol Tartrate (Lopressor) 25 mg PO BRKDIN [facility] Last Admin: 07/06/17 17:38 Dose: 25 mg Ondansetron HCl (Zofran Inj) 4 mg IVP Q6H PRN PRN Reason: Nausea/Vomiting - Labs Labs: 07/07/17 06:30 07/07/17 06:30 PT 21.2 SECONDS (9.4-12.5) H 07/05/17 06:30 INR 1.90 (0.93-1.08) H 07/05/17 06:30 APTT 29.3 Seconds (25.1-36.5) 06/26/17 23:06 Assessment and Plan - Assessment and Plan (Free Text) Assessment: AMS/Metabolic Encephalopathy Dyspnea/Edema/Anasarca Hypernatremia, resolved Prolonged INR due to hepatic dysfunction. 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 TR Acute on chronic kidney disease HBP PUD Obesity Hypothyroidism Anemia DNR/DNI/No HD Plan: Continue Lasix 40 mg. daily for now Continue D5W: 40 cc/hr. trial Monitor BS's Monitor BMP daily Daily I/O's As per Neuro. and Dr. Alvarez. OKAELYN to chair as zack. Will follow Prognosis extremely limited
[2017-07-07] MEDS: Insulin Reg-MEDIUM-Coverage SC SCH ×4 (08:29→22:03)
[2017-07-07] MEDS: Insulin Detemir 100 units/ml Vial (Levemir) SC SCH ×2 (08:31→17:52)
[2017-07-07] MEDS: Cholecalciferol 1,000 INTLU TAB PO SCH (10:18)
--- NOTE | 2017-07-07 17:56 | CP.PCM.PN ---
<Ghislaine Bonilla - Last Filed: 07/07/17 18:23> Subjective - Date & Time of Evaluation Date of Evaluation: 07/07/17 Time of Evaluation: 09:00 - Subjective Subjective: PGY-2 Neurology progress note for Dr. Joe's service Patient seen and examined at bedside. No acute distress. Patient is alert and awake this morning however she is not oriented. She complaining of general pain , however unable to specify where her pain is located. Objective - Vital Signs/Intake and Output Vital Signs (last 24 hours): Temp Pulse Resp BP Pulse Ox 97.0 F L 89 18 131/61 90 L 07/07/17 12:00 07/07/17 17:41 07/07/17 12:00 07/07/17 17:41 07/07/17 09:00 Intake and Output: 07/07/17 07/07/17 06:59 18:59 Intake Total 480 Output Total 900 Balance -420 - Medications Medications: Current Medications Acetaminophen (Tylenol 325mg Tab) 650 mg PO Q6H PRN PRN Reason: pain or temp greater than 101 Last Admin: 07/07/17 10:26 Dose: 650 mg Cholecalciferol (Vitamin D) 2,000 iu PO DAILY [facility] [place] Last Admin: 07/07/17 10:18 Dose: 2,000 intlu Famotidine (Pepcid) 20 mg PO HS [facility] [place] Last Admin: 07/06/17 21:25 Dose: 20 mg Furosemide (Lasix) 40 mg IVP Q12 [facility] [place] Last Admin: 07/07/17 10:19 Dose: 40 mg Dextrose (Dextrose 5% In Water 1000 Ml) 1,000 mls @ 40 mls/hr IV .Q24H [facility] Last Admin: 07/07/17 02:18 Dose: 40 mls/hr Insulin Detemir (Levemir) 15 unit SC ACBD [facility] Last Admin: 07/07/17 17:52 Dose: 15 unit Insulin Human Regular (Humulin R Med) 0 units SC ACHS [facility] [place] PRN Reason: Protocol Last Admin: 07/07/17 17:52 Dose: 5 units Levothyroxine Sodium (Synthroid) 125 mcg PO 0600 [facility] Last Admin: 07/07/17 05:56 Dose: 125 mcg Metoprolol Tartrate (Lopressor) 25 mg PO BRKDIN [facility] [place] Last Admin: 07/07/17 17:41 Dose: 25 mg Ondansetron HCl (Zofran Inj) 4 mg IVP Q6H PRN PRN Reason: Nausea/Vomiting - Labs Labs: 07/07/17 06:30 07/07/17 06:30 PT 21.2 SECONDS (9.4-12.5) H 07/05/17 06:30 INR 1.90 (0.93-1.08) H 07/05/17 06:30 APTT 29.3 Seconds (25.1-36.5) 06/26/17 23:06 - Constitutional Appears: No Acute Distress - Head Exam Head Exam: ATRAUMATIC, NORMAL INSPECTION, NORMOCEPHALIC - Eye Exam Eye Exam: Normal appearance - ENT Exam ENT Exam: Mucous Membranes Moist - Respiratory Exam Respiratory Exam: Clear to Ausculation Bilateral, NORMAL BREATHING PATTERN. absent: Rhonchi, Wheezes, Respiratory Distress - Cardiovascular Exam Cardiovascular Exam: REGULAR RHYTHM - Neurological Exam Neurological Exam: Alert, Awake. absent: Oriented x3 - Skin Skin Exam: Dry, Intact, Normal Color, Warm Assessment and Plan - Assessment and Plan (Free Text) Assessment: 86 yo female with PMH of atherosclerotic heart disease, CHF, hypertension, GERD , diabetes, hypothyroidism, CVA and iron deficiency anemia presents with altered mental status most likely secondary to metabolic encephalpathy due to metabolic derangements, and hepatic dysfunction 1. AMS 2. acute on chronic renal failure 3. CHF with lower extremity edema 4. hypernatremia- improved 5. diabetes - CT head was negative - previous MRI showed infarct in left temporal lobe - MRI was unable to be completed due to pain - Continue to monitor BP - correct metabolic derangements slowly, improved - maintain blood sugar 140-180, blood sugar is poorly controlled - continue gentle hydration - avoid sedative medication to prevent decline in mental status - follow up cardio recommendation - consider asa8 1mg or plaxiv 75mg for stroke prevents due to atherosclerosis - continue bipap at night - consider PALMER - SCDs for DVT ppx case discussed and reviewed with attending, Dr. Joe <Randall Joe - Last Filed: 07/07/17 23:32> Objective - Vital Signs/Intake and Output Vital Signs (last 24 hours): Temp Pulse Resp BP Pulse Ox 98 F 77 18 128/65 98 07/07/17 17:56 07/07/17 22:00 07/07/17 17:56 07/07/17 21:59 07/07/17 17:56 - Medications Medications: Current Medications Acetaminophen (Tylenol 325mg Tab) 650 mg PO Q6H PRN PRN Reason: pain or temp greater than 101 Last Admin: 07/07/17 10:26 Dose: 650 mg Cholecalciferol (Vitamin D) 2,000 iu PO DAILY [facility] Last Admin: 07/07/17 10:18 Dose: 2,000 intlu Famotidine (Pepcid) 20 mg PO HS [facility] [place] Last Admin: 07/07/17 21:59 Dose: 20 mg Furosemide (Lasix) 40 mg IVP Q12 [facility] [place] Last Admin: 07/07/17 21:59 Dose: 40 mg Dextrose (Dextrose 5% In Water 1000 Ml) 1,000 mls @ 40 mls/hr IV .Q24H [facility] [place] Last Admin: 07/07/17 02:18 Dose: 40 mls/hr Insulin Detemir (Levemir) 15 unit SC ACBD [facility] [place] Last Admin: 07/07/17 17:52 Dose: 15 unit Insulin Human Regular (Humulin R Med) 0 units SC ACHS [facility] [place] PRN Reason: Protocol Last Admin: 07/07/17 22:03 Dose: Not Given Levothyroxine Sodium (Synthroid) 125 mcg PO 0600 [facility] [place] Last Admin: 07/07/17 05:56 Dose: 125 mcg Metoprolol Tartrate (Lopressor) 25 mg PO BRKDIN [facility] [place] Last Admin: 07/07/17 17:41 Dose: 25 mg Ondansetron HCl (Zofran Inj) 4 mg IVP Q6H PRN PRN Reason: Nausea/Vomiting - Labs Labs: 07/07/17 06:30 07/07/17 06:30 PT 21.2 SECONDS (9.4-12.5) H 07/05/17 06:30 INR 1.90 (0.93-1.08) H 07/05/17 06:30 APTT 29.3 Seconds (25.1-36.5) 06/26/17 23:06 Attending/Attestation - Attestation I have personally seen and examined this patient.: Yes I have fully participated in the care of the patient.: Yes I have reviewed all pertinent clinical information, including history, physical exam and plan: Yes
--- NOTE | 2017-07-07 18:35 | PROCN ---
DATE: 07/07/2017 CONDITION OF THE RECORDING: Drowsy EEG. DIAGNOSIS: Altered mental status. MEDICATIONS: Reviewed by nurse's reconciliation sheet. INTERPRETATION: This is a 16-channel international recording. The background activity of this tracing was composed of 5-7 cycles per second. There was small amount of beta activity of 16 to 20 cycles per second seen in this recording. There was increased amount of theta activity of 5 to 7 cycles per second seen in this tracing. Drowsiness was characterized by mixed beta and theta activities. Sleep was characterized by vertex transient waves, sleep spindles, and bilateral slowing. Photic stimulation showed no changes in the tracing. No paroxysmal activity is noted in this recording. CONCLUSION: This is an abnormal electroencephalogram due to presence of diffuse severe slowing throughout the recording consistent with bilateral cerebral dysfunction. No evidence of any epileptiform activity. Please clinically correlate. Randall Joe MD
[2017-07-08] MEDS: Levothyroxine 125 MCG TAB PO SCH (05:21)
[2017-07-08 06:35] LABS: HEMATOCRIT 27.4 % (36.0-48.0)
[2017-07-08 06:49] LABS: CALCIUM 11.2 mg/dL (8.4-10.5); POTASSIUM 3.8 mmol/L (3.6-5.0)
[2017-07-08] MEDS: Insulin Reg-MEDIUM-Coverage SC SCH ×4 (08:19→21:51)
[2017-07-08] MEDS: Insulin Detemir 100 units/ml Vial (Levemir) SC SCH ×2 (08:19→16:10)
--- NOTE | 2017-07-08 09:05 | PN ---
DATE: 07/08/2017 SUBJECTIVE: The patient is seen lying in bed on telemetry. She is somnolent, she appears in no distress. MEDICATIONS: Her current medications include insulin coverage, Lasix 40 mg IV q. 12 hours., Levemir insulin, metoprolol 25 mg b.i.d., Pepcid 20 mg daily, Synthroid 125 mcg daily and Zofran p.r.n. OBJECTIVE GENERAL: She is an obese elderly woman. VITAL SIGNS: Her blood pressure is 122/64 with the pulse of 80 and atrial fibrillation, and respirations are 16. She is afebrile. HEENT: No JVD. CHEST: Bilateral scattered rhonchi. HEART: PMI displaced laterally with a soft tones. Soft systolic murmur at lower sternal border and apex. GASTROINTESTINAL: The abdomen is soft and nontender, with normoactive bowel sounds. EXTREMITIES: Trace edema. DIAGNOSTIC DATA: Potassium of 3.8, BUN and creatinine are 112 and 1.5, and glucose is 204. White count is 8.9 with hemoglobin of 8.9 with hematocrit of 27.4 IMPRESSION 1. Altered mental status somewhat persistent. 2. Hypernatremia, resolved. 3. Chronic atrial fibrillation, currently anticoagulated. 4. Coronary artery disease status post remote myocardial fraction with severe left ventricular dysfunction, severe mitral and tricuspid regurgitation. 5. Prerenal azotemia. 6. Rest of problems as noted. RECOMMENDATIONS: Her current medications will be continued for now. Currently oral intake has improved and continued IV fluids does not appear needed. Comfort care is most advised. We will be happy to follow along as needed. Yasmani Hui MD
[2017-07-08] MEDS: Cholecalciferol 1,000 INTLU TAB PO SCH (10:27)
--- NOTE | 2017-07-08 15:37 | CP.PCM.PN ---
Subjective - Date & Time of Evaluation Date of Evaluation: 07/11/17 Time of Evaluation: 13:00 - Subjective Subjective: Subjective: PGY-2 Neurology progress note for Dr. Joe's service Patient seen and examined at bedside. No acute distress. Patient is alert and awake this morning however she is not oriented. She complaining of general pain , however unable to specify where her pain is located. Intermittent lucid intervals. Objective - Vital Signs/Intake and Output Vital Signs (last 24 hours): Temp Pulse Resp BP Pulse Ox 97.0 F L 89 18 131/61 90 L 07/07/17 12:00 07/07/17 17:41 07/07/17 12:00 07/07/17 17:41 07/07/17 09:00 Intake and Output: 07/07/17 07/07/17 06:59 18:59 Intake Total 480 Output Total 900 Balance -420 - Medications REVIEWED VIA NURSES SHEET. - Constitutional Appears: No Acute Distress - Head Exam Head Exam: ATRAUMATIC, NORMAL INSPECTION, NORMOCEPHALIC - Eye Exam Eye Exam: Normal appearance - ENT Exam ENT Exam: Mucous Membranes Moist - Respiratory Exam Respiratory Exam: Clear to Ausculation Bilateral, NORMAL BREATHING PATTERN. absent: Rhonchi, Wheezes, Respiratory Distress - Cardiovascular Exam Cardiovascular Exam: REGULAR RHYTHM - Neurological Exam Neurological Exam: Alert, Awake. absent: Oriented x3 - Skin Skin Exam: Dry, Intact, Normal Color, Warm Assessment and Plan - Assessment and Plan (Free Text) Assessment: 86 yo female with PMH of atherosclerotic heart disease, CHF, hypertension, GERD , diabetes, hypothyroidism, CVA and iron deficiency anemia presents with altered mental status most likely secondary to metabolic encephalpathy due to metabolic derangements, and hepatic dysfunction 1. AMS 2. acute on chronic renal failure 3. CHF with lower extremity edema 4. hypernatremia- improved 5. diabetes - CT head was negative - previous MRI showed infarct in left temporal lobe - MRI was unable to be completed due to pain - Continue to monitor BP - correct metabolic derangements slowly, improved - maintain blood sugar 140-180, blood sugar is poorly controlled - continue gentle hydration - avoid sedative medication to prevent decline in mental status - follow up cardio recommendation - consider asa8 1mg or plaxiv 75mg for stroke prevents due to atherosclerosis - continue bipap at night - consider PALMER - SCDs for DVT adela Huffman MD Objective - Vital Signs/Intake and Output Vital Signs (last 24 hours): Temp Pulse Resp BP Pulse Ox 98.4 F 80 20 137/79 100 07/08/17 11:49 07/08/17 14:00 07/08/17 11:49 07/08/17 11:49 07/08/17 08:00 Intake and Output: 07/08/17 07/08/17 06:59 18:59 Intake Total 480 120 Output Total 1900 Balance 480 -1780 - Medications Medications: Current Medications Acetaminophen (Tylenol 325mg Tab) 650 mg PO Q6H PRN PRN Reason: pain or temp greater than 101 Last Admin: 07/07/17 10:26 Dose: 650 mg Cholecalciferol (Vitamin D) 2,000 iu PO DAILY [facility] Last Admin: 07/08/17 10:27 Dose: 2,000 intlu Famotidine (Pepcid) 20 mg PO HS [facility] Last Admin: 07/07/17 21:59 Dose: 20 mg Furosemide (Lasix) 40 mg IVP DAILY [facility] Insulin Detemir (Levemir) 15 unit SC ACBD [facility] Last Admin: 07/08/17 08:19 Dose: 15 unit Insulin Human Regular (Humulin R Med) 0 units SC ACHS [facility] PRN Reason: Protocol Last Admin: 07/08/17 11:56 Dose: 1 units Levothyroxine Sodium (Synthroid) 125 mcg PO 0600 [facility] Last Admin: 07/08/17 05:21 Dose: 125 mcg Metoprolol Tartrate (Lopressor) 25 mg PO BRKDIN [facility] Last Admin: 07/08/17 08:19 Dose: 25 mg Ondansetron HCl (Zofran Inj) 4 mg IVP Q6H PRN PRN Reason: Nausea/Vomiting - Labs Labs: 07/08/17 06:00 07/08/17 06:00 PT 21.2 SECONDS (9.4-12.5) H 07/05/17 06:30 INR 1.90 (0.93-1.08) H 07/05/17 06:30 APTT 29.3 Seconds (25.1-36.5) 06/26/17 23:06
--- NOTE | 2017-07-08 16:10 | PN ---
DATE: 07/08/2017 SUBJECTIVE: This 86-year-old female was examined at the bedside. Her case was reviewed in detail with herself, her nurse, Moraima Tuttle, registered nurse and Dr. Yasmani Hui from Cardiology. The patient also was seen by speech therapist, Jo-Ann Duvall, earlier today who states that the patient is tolerating current pureed diet consistency with thin liquids and she also feels that the patient will be unable to advance her diet consistency at this time that she should be continued on the current diet with aspiration precautions, small bites and sips. The patient at present is denying fever, chills, remains bedridden with episodes of confusion and newly noted skin breakdown on her lower sacrum today due to chronic bedridden status. ekg monitor tech showing atrial fibrillation. OBJECTIVE: VITAL SIGNS: Temperature 98.4, respirations 20, pulse 80, and blood pressure 137/79. Pulse ox is 100%. INTAKE AND OUTPUT: Her urinary output was 1900 mL. HEENT: Head is normocephalic, atraumatic. Eyes: No icterus. Ears: Clear. Throat: Noninjected. NECK: Supple. HEART: Irregular S1 and S2. LUNGS: Decreased breath sounds at the bases. ABDOMEN: Soft. EXTREMITIES: 2+ edema. SKIN: New sacral openings. VASCULAR: Legs warm to touch. PSYCHOLOGIC: Confused. NEUROLOGIC: Marked deconditioning. LABORATORY DATA: Hemoglobin 8.9 and hematocrit 27.4. PT/INR 1.90. Sodium 143, K 3.8, chloride 108, bicarb 28, BUN 112, creatinine 1.5, and random blood sugar 204. Hepatitis A, B, C serology negative. IMPRESSION: An 86-year-old female multisystem failure, chronic atrial fibrillation, decompensated [id number] systolic congestive heart failure with right heart failure, severe mitral regurgitation, severe tricuspid regurgitation, passive congestion of the liver, fatty liver, elevated PT/INR secondary to liver dysfunction, chronic hypertension, insulin-dependent diabetes mellitus, peptic ulcer disease, hypothyroidism, degenerative arthritis, spinal arthritis, obesity, bedridden status, now with new-onset sacral ulcerations, and chronic obstructive pulmonary disease. PLAN: The patient remains DNR/DNI. I am working with Social Service regarding disposition for this critically ill patient who has not been accepted to subacute rehab due to her bedridden status and marked deconditioning. She is ordered to have antiembolism sequential compression device stockings to prevent DVT, which she is wearing at present and she remains on I's and O's, out of bed to chair with assistance, continued Hairston catheter to prevent skin breakdown due to urinary incontinence and remains on fall precautions, aspiration precautions, and air mattress as discussed with her nurse, Moraima Tuttle, registered nurse. She will be started on Optifoam skin care for her skin breakdown. She continues on Levemir insulin 15 units a.c. breakfast and dinner along with heart-healthy diabetic diet as well as regular medium insulin coverage a.c. meals and at bedtime. Her IV fluids have been discontinued now that her hypernatremia is corrected as per Dr. Hui and her IV Lasix will continue at 40 mg IV daily. The patient continues on physical therapy, occupational therapy, CPAP, nasal O2, pulmonary toiletry, and skin care. She will continue on Synthroid, Pepcid, Lopressor, Levemir, Lasix, and insulin as outlined. Social Service will discuss disposition with family. Greater than thirty five minutes was spent on the care of this patient today. Overall prognosis remains extremely poor. Comfort measures will be continued. Ioana Alvarez MD MTDD
[2017-07-09] MEDS: Levothyroxine 125 MCG TAB PO SCH (05:26)
[2017-07-09] MEDS: Insulin Reg-MEDIUM-Coverage SC SCH ×3 (08:08→17:13)
[2017-07-09] MEDS: Insulin Detemir 100 units/ml Vial (Levemir) SC SCH ×2 (08:09→17:51)
[2017-07-09] MEDS: Cholecalciferol 1,000 INTLU TAB PO SCH (09:26)
[2017-07-09] MEDS: Insulin Reg-LOW-Coverage SC SCH (21:14)
--- NOTE | 2017-07-10 | PN ---
DATE: 07/09/2017 SUBJECTIVE: This 86-year-old female was examined at the bedside and her case was reviewed in detail with nursing and her granddaughter at her bedside. The patient was more alert, but remains chronically confused. She was unable to have a salient conversation due to her confusional state. She remains in a atrial fibrillation rhythm on the pvc monitor and is denying fever, chills, chest pain or shortness of breath. PHYSICAL EXAM: VITAL SIGNS: Showed a temperature of 98.1, respirations 20, pulse 80, blood pressure 116/53, pulse oximetry was 100%. Urine output was 1900 mL. HEENT: Head: Normocephalic, atraumatic. Eyes: No icterus. Ears: Clear. Throat: Noninjected. NECK: Supple. HEART: Irregular S1, S2. LUNGS: Without wheezing. ABDOMEN: Obese. EXTREMITIES: 2+ edema. SKIN: Without rash. There is a sacral breakdown that is newly noted by the nursing staff which is being treated with Optifoam dressing and frequent rotation while in bed on an air mattress. VASCULAR: Legs warm to touch. PSYCHOLOGICAL: Alert but confused. NEURO: Markedly deconditioned. LABORATORY DATA: Hemoglobin 8.9, hematocrit 27.4. PT/INR 1.9. Random blood sugar 122. Sodium 143, K 3.8, chloride 108, bicarb 28, BUN 112, creatinine 1.5. Hepatitis A, B, C serology is negative. IMPRESSION: This is an 86-year-old female with multiple medical problems including marked deconditioning, bedridden status, skin irritation secondary to chronic bedridden status with insulin-dependent diabetes mellitus, [id number] systolic congestive heart failure decompensation along with right heart failure, mitral regurgitation, tricuspid regurgitation, passive congestion of the liver, fatty liver, and elevated PT/INR on the basis of liver dysfunction, also with chronic hypertension, peptic ulcer disease with gastroesophageal reflux disease, hypothyroidism, spinal arthritis, degenerative arthritis and obesity. PLAN: As discussed with the patient, nursing, family and care team is to continue BiPAP, nasal O2, pureed diet with thin liquids, air mattress, aspiration precautions, fall precautions, skin care and Hairston catheter for Is and Os. The patient is ordered to have soft limb restraints when family is not present to prevent her from pulling out IVs and Hairston catheter. She is also ordered to have physical therapy for reconditioning and gait training, and nursing staff has been instructed to attempt to get her out of bed daily. They are also aware that she is to be rotated while in bed frequently to prevent any further skin breakdown which is a constant problem given her deconditioning, bedridden status and obesity. She continues on insulin, Lasix, Lopressor, Pepcid, Synthroid, vitamin D and Tylenol. She remains a DNR/DNI. She is being encouraged to eat with the assistance of nursing and family, and overall prognosis remains poor. Greater than 35 minutes was spent in the care, counseling, management, ordering of testing and review of labs and medication for this patient today. All questions were answered for her family. Ioana Alvarez MD
[2017-07-10] MEDS: Levothyroxine 125 MCG TAB PO SCH (05:19)
[2017-07-10] MEDS ORDERED: Insulin Detemir 100 units/ml Vial (Levemir) SC SCH ×2 (07:30→12:25)
[2017-07-10] MEDS: Insulin Reg-LOW-Coverage SC SCH ×4 (07:40→21:22)
--- NOTE | 2017-07-10 07:57 | PN ---
DATE: 07/07/2017 SUBJECTIVE: This 86-year-old female was examined at her bedside and her case was reviewed in detail with Moraima Tuttle, registered nurse. The patient remains bedridden. She is chronically confused. She is in need of 24 hours supervision and care given her multiple medical problems as previously outlined, which include marked deconditioning, bedridden status, metabolic encephalopathy, delirium, and intermittent confusion in the setting of acute on chronic systolic congestive heart failure, right heart failure, passive congestion of the liver with elevated PT/INR secondary to oral anticoagulation in the setting of right heart failure as well as chronic renal failure, recent hypernatremia, prerenal azotemia, chronic renal failure, anasarca, and anemia of chronic disease, guaiac-positive stools probably secondary to gastritis, history of atherosclerotic heart disease, chronic hypertension, hypothyroidism, degenerative arthritis and spinal arthritis as well as insulin-dependent diabetes mellitus. The patient is being fed by nursing staff a pureed diet with thin liquids while remaining on aspiration precautions. There have been no reports of chest pain, fever or chills. She does have a Hairston catheter because of urinary incontinence and family is concerned for skin breakdown and does require soft wrist restraints to prevent her from pulling out her midline intravenous catheter as well as Hairston catheter. PHYSICAL EXAMINATION: VITAL SIGNS: Today, she remains in an atrial fibrillation and rhythm on the personnel monitor. Temperature 97.6, respirations 20, pulse 78, blood pressure 146/79, and pulse ox of 100% with BiPAP. Urinary output was reviewed with nursing and is 900 mL thus far today. HEENT: Head: Normocephalic and atraumatic. Eyes: No icterus. Ears: Clear. Throat: Noninjected. NECK: Supple. HEART: Irregular, S1 and S2. LUNGS: Decreased breath sounds at the bases. ABDOMEN: Obese. No rebound. No guarding. EXTREMITIES: 2+ pitting edema. SKIN: Without rash. VASCULAR: Legs warm to touch. PSYCHOLOGICAL: Encephalopathy. NEUROLOGIC: Able to move all four extremities on tactile stimulus. CURRENT LABORATORY DATA: Hemoglobin 9.2 and hematocrit 28.2. PT/INR 1.9. Sodium 144, K 3.9, chloride 107, bicarb 27, BUN 112, creatinine 1.7, and random blood sugar 289. Hepatitis A, B, and C serology negative. IMPRESSION: An 86-year-old female with multiple medical problems including bedridden status, marked deconditioning in the setting of metabolic encephalopathy, delirium and lethargy secondary to multisystem failure, acute on chronic systolic congestive heart failure, right heart failure, passive congestion of the liver with prolonged INR secondary to hepatic dysfunction and hypernatremia now resolved, chronic atrial fibrillation, atherosclerotic heart disease, status post myocardial infarction with right heart failure secondary to severe mitral regurgitation and severe tricuspid regurgitation with acute on chronic renal failure, chronic hypertension, peptic ulcer disease, obesity, hypothyroidism, anemia, spinal arthritis, degenerative arthritis, and hypothyroidism. The patient remains do not resuscitate/do not intubate and family declines any consideration of hemodialysis. PLAN: As reviewed with nursing, family, social service, and case management will be for family and administration to work out details for disposition. Apparently, she has been refuse consideration at subacute rehab given her advanced deconditioning and bedridden status. She will continue as per Cardiology on D5W at 40 mL per hour to ensure adequate IV fluid intake given her variable oral intake secondary to confusional state. She will continue on Lasix 40 mg IV daily. She remains on Levemir insulin 15 units a.c. breakfast, dinner with medium regular insulin coverage a.c. meals and at bedtime, Lasix 40 mg IV q.12 hours, metoprolol tartrate 25 mg b.i.d., Pepcid 20 mg p.o. at bedtime, Synthroid 125 mcg p.o. daily, and BiPAP daily. She is on her pureed diet with thin liquids while having aspiration precautions enforced. She remains on an air mattress, skin care, fall precautions, Hairston catheter, strict Is and Os, and dietary supplements as able. She is wearing antiembolism sequential compression device stockings to prevent DVT. She is receiving bedside physical therapy and ultimate plan will be for disposition of this patient that is agreeable to both the patient's family and social service. Greater than 35 minutes was spent in the care management, coordination of care, review of labs, x-rays, medications, and orders with family, nursing, and Cardiology today. All questions were answered. Overall prognosis remains poor. Ioana Alvarez MD [facility] # [id number] MTDD
--- NOTE | 2017-07-10 13:02 | PN ---
DATE: 07/10/2017 SUBJECTIVE: This is an 86-year-old female who was examined at the bedside and this case was reviewed in detail with her nurse, Marybel Oseguera, registered nurse as well as Indiana Cortez, supportive employment case manager. The patient remains bedridden. She has been denied for subacute rehab due to marked deconditioning and immobility. The patient remains a DNR/DNI and plans are being made for this patient to be brought home to the care of her family who will provide 24-hour supervision. At present, the patient remains bedridden, markedly deconditioned and in a confusional state. She has multisystem failure with [id number] systolic congestive heart failure, right heart failure, prolonged PT/INR on the basis of liver dysfunction in the setting of right heart failure as well as comorbidities of chronic renal insufficiency, hypothyroidism, GERD, anemia of chronic disease, hypertension, insulin-dependent diabetes mellitus, metabolic encephalopathy, and confusion. She remains in atrial fibrillation rhythm on the equipment monitor phototypesetting. OBJECTIVE: VITAL SIGNS: Her temperature is 98, her respirations are 20, pulse is 78, blood pressure is 117/65, and pulse ox is 100%. INTAKE AND OUTPUT: Urine output was approximately 1000 mL in the past 12 hours. HEENT: Head: Normocephalic and atraumatic. Eyes: No icterus. Ears: Clear. Throat: Noninjected. NECK: Supple. HEART: Irregular. S1 and S2. LUNGS: Clear. ABDOMEN: Obese, nontender. No palpable organomegaly. No rebound, no guarding. No tenderness. EXTREMITIES: 1+ edema. SKIN: Without rash. She is wearing antiembolism sequential compression device stockings. VASCULAR: Legs are warm to touch. PSYCHOLOGIC: Cannot be assessed. NEUROLOGIC: Markedly deconditioned, but moves all four extremities to tactile stimulus. LABORATORY DATA: Hemoglobin 8.9 and hematocrit 27.4. PT/INR 1.90. Random blood sugar 122. Hepatitis A, B, C serologies are negative. IMPRESSION AND PLAN: This is an 86-year-old female with decompensated kamws-ia-nfleiau systolic congestive heart failure with right heart failure in the setting of mitral regurgitation, tricuspid regurgitation, fatty liver, and increased PT/INR secondary to liver dysfunction on no Coumadin, with comorbidities of insulin-dependent diabetes mellitus, hypertension, peptic ulcer disease with gastroesophageal reflux disease, hypothyroidism, obesity, degenerative arthritis, spinal arthritis, sacral breakdown, urinary incontinence, metabolic encephalopathy, and chronic obstructive pulmonary disease. Plan at present is to make arrangements for discharge planning. She remains DNR/DNI. She is wearing antiembolism sequential stockings. She is on a pureed diet with thin liquids and remains on aspiration and fall precautions. Hairston catheter will remain for the time being given urinary incontinence and increased risk for worsening skin breakdown. She remains on fall precautions, specialty air mattress, frequent rotations of her body given her newly noted sacral breakdown and she is having Optifoam placed on this area as well. She continues with BiPAP, oral Synthroid, Pepcid, Lopressor, Levemir insulin coverage, and Lasix. She has been ordered to have her family to be instructed on the use of insulin by nurse, Jacki Fonseca, from diabetic education. She will remain a DNR/DNI. Overall prognosis is extremely poor. Comfort measures will be entertained and greater than 35 minutes was spent in the care management, review of labs, x-rays, medications, consulting reports, discussions with nursing, family, and case management regarding this patient's disposition and needs. Overall prognosis is guarded. Ioana Alvarez MD MTDD
[2017-07-10] MEDS ORDERED: Dextrose 50% SYRINGE Inj (50 ml) IVP ONE (21:23)
[2017-07-11] MEDS: Levothyroxine 125 MCG TAB PO SCH (05:33)
[2017-07-11 06:43] LABS: HEMATOCRIT 26.3 % (36.0-48.0)
[2017-07-11 07:13] LABS: ALB/GLOB RATIO 0.7 (1.1-1.8); CALCIUM 11.4 mg/dL (8.4-10.5); POTASSIUM 3.7 mmol/L (3.6-5.0); TOTAL PROTEIN 6.1 g/dL (5.8-8.3)
[2017-07-11] MEDS: Insulin Reg-LOW-Coverage SC SCH ×4 (07:54→21:11)
[2017-07-11] MEDS ORDERED: Phytonadione 10 mg/ml Inj (Adult) SC ONE (11:43)
--- NOTE | 2017-07-11 21:01 | PN ---
DATE: 07/11/2017 SUBJECTIVE: This 86-year-old female was examined at the bedside. Her case was reviewed in detail with her nurse, Yojana and Customer Service Leader, Indiana Cortez, registered nurse. The patient reportedly had an episode of a small amount of blood with a bowel movement, and GI evaluation has been requested. It should be noted that the patient remains DNR/DNI and is markedly deconditioned and is denying any active GI bleeding at present. There have been no reports of hematemesis or melena. PHYSICAL EXAMINATION: VITAL SIGNS: She is in an atrial fibrillation rhythm on the cardiac/vascular sonographer with a temperature of 97.9, respirations 20, pulse 75, blood pressure 126/77, and pulse ox of 97%. HEENT: Head: Normocephalic, atraumatic. Eyes: No icterus. Ears: Clear. Throat: Non-injected. NECK: Supple. HEART: Irregular S1, S2. LUNGS: Clear. ABDOMEN: Obese, nontender. No palpable organomegaly. No rebound. No guarding. No tenderness. EXTREMITIES: Decreased edema. SKIN: Without rash. NEUROLOGIC: Moves all four extremities, but marked deconditioning. VASCULAR: Legs warm to touch. PSYCHOLOGIC: Intermittent confusion. LABORATORY DATA: Hemoglobin 8.2, hematocrit 26.3, previously Hemoglobin 8.9 . Sodium 149, potassium 3.7, chloride 111, bicarb 31, BUN 92, creatinine 1.4, random blood sugar 68. Bilirubin 1, AST 62, ALT 55, alk phos 158. Hepatitis A, B, C serology negative. IMPRESSION: This is an 86-year-old female, do not resuscitate/do not intubate, with multiple medical problems, including metabolic encephalopathy, intermittent delirium, qacjy-vy-dymjwdz systolic congestive heart failure with right heart failure, passive congestion of the liver, history of fatty liver, chronically elevated liver function testing, history of insulin-dependent diabetes mellitus, hypernatremia, failure to thrive, chronic hypertension, atrial fibrillation, history of peptic ulcer disease, and gastrointestinal endoscopy and colonoscopy that were unremarkable within the past year or so. Chronic hypothyroidism, deconditioning, spinal arthritis, degenerative arthritis, now with guaiac-positive stool and slightly worsening anemia, and chronic obstructive pulmonary disease. PLAN: Discussed with nursing, case management, will require Dr. Wyatt from GI to evaluate this patient, who although not a candidate for anesthesia, will need his evaluation, and she is being treated supportively at the present time with Protonix and rectal suppositories of Anusol-HC. She is wearing sequential compression device, antiembolism stockings. She remains on Hairston catheter for urinary incontinence and prevention of further skin breakdown. She is receiving Optifoam to her sacrum because of newly noted sacral irritation in her bedridden status. She remains on aspiration precautions and an air mattress as well. She is on a pureed diet with thin liquids. She is receiving BiPap. She is on oral Synthroid, Protonix, metoprolol, Lasix, insulin coverage, and Anusol rectal suppositories. I will order a dose of vitamin K. Await GI evaluation. She remains DNR/DNI, and ultimate disposition will be for home with family support. Overall prognosis remains extremely poor. Greater than 35 minutes was spent in the care management, counseling, and discussion of this patient today. Ioana Alvarez MD MTDRamy
--- NOTE | 2017-07-12 04:48 | CON ---
DATE: 07/11/2017 REASON FOR CONSULTATION: Bleeding per rectum. HISTORY OF PRESENT ILLNESS: This is an 86-year-old patient with past medical history of CHF, diabetes mellitus, hypertension, chronic kidney disease, hypothyroidism, atrial fibrillation, anemia, who was brought from the subacute rehab for weakness and poor response to the stimuli, and change of mental status. The patient has a history of heart failure and CVA, previously admitted in the hospital. The patient has acute on chronic congestive heart failure, right heart failure, pulmonary hypertension and elevated INR. Other past medical history as above. The patient who has elevated INR, on Coumadin. She is noticed to have some blood per rectum today. GI consult was requested to evaluate this. No vomiting blood. Overall, complains of body ache. No specific worsening of any abdominal pain. Other past medical history is significant as above. FAMILY HISTORY: Noncontributory. SOCIAL HISTORY: Denies smoking or alcohol. REVIEW OF SYSTEMS: Positive as above. The patient's granddaughter was at bedside. Complaining of generalized body ache. PHYSICAL EXAMINATION: VITAL SIGNS: Temperature 98.4, blood pressure is 107/67, pulse 80, respirations 21, O2 saturation is 97%. HEENT: Atraumatic, anicteric. NECK: Supple. ASSESSMENT: The patient has elevated INR, was on Coumadin. Has a small amount of rectal bleeding. The patient is planned to be discharged. Because of the concern about rectal bleeding, Gastroenterology consult was requested. The patient has multiple medical comorbidities, extremely high risk for any evaluation. Moreover, overall in view of the multiple comorbidities, the patient's family also decided about do not resuscitate, they do not want any aggressive measures at this present time. I would try to treat her conservatively with holding of the anticoagulation if there is acute ongoing bleeding. Close monitoring of the hemoglobin and hematocrit and transfuse. Giving hemorrhoidal suppositories. The patient was on antibiotics before. I would recommend follow up of the stool for Clostridium difficile. Continue with the present management, supportive care. I had a detailed discussion with the patient's daughter who also requested for no aggressive intervention at the present time. Thank you very much for allowing me to participate in the care of the patient. Alejandro Wyatt MD
[2017-07-12 07:49] LABS: CALCIUM 11.1 mg/dL (8.4-10.5)
[2017-07-12] MEDS: Insulin Reg-LOW-Coverage SC SCH ×3 (08:20→17:37)
[2017-07-12] MEDS ORDERED: Pantoprazole 40 mg EC Tab PO SCH (10:00)
--- NOTE | 2017-07-12 16:46 | CP.PCM.PN ---
<Saskia Bunn - Last Filed: 07/12/17 16:46> Subjective - Date & Time of Evaluation Date of Evaluation: 07/12/17 Time of Evaluation: 11:10 - Subjective Subjective: Seen and examined at the bedside earlier today, the chart was reviewed. Patient 's daughters are at the bedside. Patient is nonverbal but no acute distress no reports of any overt GI bleed. No nausea, vomiting, or abdominal pain reported. No acute overnight events reported. Objective - Vital Signs/Intake and Output Vital Signs (last 24 hours): Temp Pulse Resp BP Pulse Ox 97.6 F 68 20 111/65 99 07/12/17 07:30 07/12/17 08:47 07/12/17 07:30 07/12/17 10:01 07/12/17 07:30 Intake and Output: 07/12/17 07/12/17 06:59 18:59 Output Total 240 Balance -240 - Medications Medications: Current Medications Furosemide (Lasix) 40 mg PO DAILY [facility] Last Admin: 07/12/17 10:01 Dose: 40 mg Hydrocortisone (Anusol-Hc) 25 mg RC BID [facility] Last Admin: 07/12/17 10:01 Dose: 25 mg Dextrose (Dextrose 5% In Water 1000 Ml) 1,000 mls @ 80 mls/hr IV .[id number] [facility] Last Admin: 07/11/17 14:32 Dose: 80 mls/hr Insulin Human Regular (Humulin R Low) 0 units SC ACHS [facility] PRN Reason: Protocol Last Admin: 07/12/17 12:27 Dose: 2 units Levothyroxine Sodium (Synthroid) 125 mcg PO 0600 [facility] Last Admin: 07/11/17 05:33 Dose: Not Given Metoprolol Tartrate (Lopressor) 25 mg PO BRKDIN [facility] Last Admin: 07/12/17 08:47 Dose: 25 mg Pantoprazole Sodium (Protonix Ec Tab) 40 mg PO DAILY [facility] Last Admin: 07/12/17 10:04 Dose: 40 mg - Labs Labs: 07/11/17 06:08 07/12/17 06:45 PT 21.2 SECONDS (9.4-12.5) H 07/05/17 06:30 INR 1.90 (0.93-1.08) H 07/05/17 06:30 APTT 29.3 Seconds (25.1-36.5) 06/26/17 23:06 - Constitutional Appears: No Acute Distress - Eye Exam Eye Exam: Normal appearance. absent: Scleral icterus - ENT Exam ENT Exam: Mucous Membranes Moist - Respiratory Exam Respiratory Exam: NORMAL BREATHING PATTERN. absent: Respiratory Distress - Cardiovascular Exam Cardiovascular Exam: +S1, +S2 - GI/Abdominal Exam GI & Abdominal Exam: Soft, Normal Bowel Sounds. absent: Guarding, Tenderness, Rebound - Neurological Exam Neurological Exam: Altered, Awake - Skin Skin Exam: Dry, Warm Assessment and Plan - Assessment and Plan (Free Text) Assessment: Assessment: Altered mental status Coagulopathy, patient was on Coumadin for history of atrial fibrillation Anemia Status post rectal bleeding likely from hemorrhoid Hypertension Chronic kidney disease Diabetes mellitus Plan: Diet as tolerated patient wears dentures but does not have, on puree diet Continue GI prophylaxis on Protonix 40mg of chronic kidney disease consider low dose PPI/H2 isabel Anusol suppositories Family does not want aggressive measures, continue supportive management. Possible plan for discharge home today spoke to the daughter is at the bedside. Seen and discussed with Dr. Wyatt. <Alejandro Wyatt V - Last Filed: 07/13/17 01:01> Objective - Vital Signs/Intake and Output Vital Signs (last 24 hours): Temp Pulse Resp BP Pulse Ox 97.4 F L 72 18 120/70 100 07/12/17 17:10 07/12/17 17:49 07/12/17 17:10 07/12/17 17:49 07/12/17 17:10 Intake and Output: 07/12/17 07/13/17 18:59 06:59 Output Total 240 Balance -240 - Labs Labs: 07/11/17 06:08 07/12/17 06:45 PT 21.2 SECONDS (9.4-12.5) H 07/05/17 06:30 INR 1.90 (0.93-1.08) H 07/05/17 06:30 APTT 29.3 Seconds (25.1-36.5) 06/26/17 23:06 Attending/Attestation - Attestation I have personally seen and examined this patient.: Yes I have fully participated in the care of the patient.: Yes I have reviewed all pertinent clinical information, including history, physical exam and plan: Yes Notes (Text): This is an addendum to GI progress report dictated by Saskia Bunn APN.The patient was seen and examined earlier. Medical records, lab studies, imagings were reviewed. Last 24 hours events reviewed. Agreed with the above treatment plan as outlined in Saskia Bunn APN's notes the with the addition of the following Patient is scheduled to be discharged today. Patient has been on Linzess for constipation and this medication was renewed Supportive care Follow up with the primary care 07/13/17 01:00
[2017-07-12 17:11] VITALS: BP 120/70; PULSE 72; RESP 18; TEMP 97.4; O2SAT 100
--- NOTE | 2017-07-13 10:43 | DS ---
FINAL DIAGNOSES: Multisystem failure, metabolic encephalopathy, intermittent delirium, resolved hypernatremia, acute on chronic systolic congestive heart failure, right heart failure, chronic renal failure, diabetes, fatty liver, passive congestion of the liver, gastrointestinal bleeding, chronic hypertension, hypothyroidism, spinal arthritis, degenerative arthritis, history of old stroke, history of internal hemorrhoids, obesity, bedridden status, sacral sores, need for chronic indwelling Hairston catheter, sacral breakdown, persistent pedal edema. DISPOSITION: Home with family providing 24 hours supervision and VNA following the patient in her house. The patient will have hospital bed, air mattress, Hairston catheter, Optifoam sacral dressings. Medications will include Anusol rectal suppository b.i.d., regular low-dose insulin coverage a.c. meals and at bedtime. Family was instructed by nurse, Jacki Fonseca from diabetic education. Lasix 40 mg p.o. daily, Lopressor 25 mg b.i.d., Pepcid 20 mg p.o. at bedtime, Synthroid 125 mcg p.o. daily, and Optifoam dressing to sacral area daily. CONSULTANTS: Dr. Baker from Cardiology, Dr. Randall Joe from Neurology, and Dr. Alejandro Wyatt from GI. SUMMARY: This 86-year-old female was admitted to [facility] with multiple medical problems in the setting of multisystem failure and was treated with parenteral diuretics, D5W IV fluids, and had serial labs and diagnostic x-rays that confirmed the above diagnoses. The patient was made DNR/DNI. She was noted to have guaiac-positive stools, was seen in evaluation by GI. Family declined any aggressive intervention or diagnostic testing. At the time of discharge, the patient remains bedridden with a temperature of 97.6, respirations 20, pulse 68, blood pressure 115/67, and pulse ox of 99% on room air. Hemoglobin 8.2, hematocrit 26.3. Sodium 144, potassium 4.0, chloride 109, bicarb 28, BUN 90, creatinine 1.4, random blood sugar 247. Hepatitis A, B, C serologies were negative. The patient is discharged to home to the care of her family. She remained a DNR/DNI. All of the above was reviewed in detail with the family. They will continue to feed this patient a pureed thin liquid diet with aspiration precautions and monitor her for fall precautions, and has been instructed on free water replacement based on urinary output. Greater than 35 minutes was spent in the care and discharge management of this patient today, including review of all the above with family at the bedside, nursing, and co-consultants. All questions were answered. Prognosis remains poor. Ioana Alvarez MD MTDD
== END 2017-07-12 18:55 | disposition home health service (06) | DRG 70 ==
LOC: ED 20:39 → ERH 06-27 03:29 → 3RSO 06-27 05:31 → 5RNO 07-11 23:04
PROVIDERS: ADMIT Internal Medicine; ATTEND Internal Medicine
DX: G93.41 Metabolic encephalopathy (principal); I50.23 Acute on chronic systolic (congestive) heart failure; N17.9 Acute kidney failure, unspecified; E87.0 Hyperosmolality and hypernatremia; E11.22 Type 2 diabetes mellitus with diabetic chronic kidney disease; N18.5 Chronic kidney disease, stage 5; I08.1 Rheumatic disorders of both mitral and tricuspid valves; K76.1 Chronic passive congestion of liver; I42.9 Cardiomyopathy, unspecified; K62.5 Hemorrhage of anus and rectum; N30.00 Acute cystitis without hematuria; E86.0 Dehydration; E87.5 Hyperkalemia; I48.2 Chronic atrial fibrillation; I27.29 Other secondary pulmonary hypertension; D63.8 Anemia in other chronic diseases classified elsewhere; E03.9 Hypothyroidism, unspecified; E66.9 Obesity, unspecified; F03.90 Unspecified dementia, unspecified severity, without behavioral disturbance, psychotic disturbance, mood disturbance, and anxiety; I12.9 Hypertensive chronic kidney disease with stage 1 through stage 4 chronic kidney disease, or unspecified chronic kidney disease; I25.10 Atherosclerotic heart disease of native coronary artery without angina pectoris; I25.2 Old myocardial infarction; I50.82 Biventricular heart failure; Z86.73 Personal history of transient ischemic attack (TIA), and cerebral infarction without residual deficits; J44.9 Chronic obstructive pulmonary disease, unspecified; K21.9 Gastro-esophageal reflux disease without esophagitis; K27.9 Peptic ulcer, site unspecified, unspecified as acute or chronic, without hemorrhage or perforation; K29.70 Gastritis, unspecified, without bleeding; K59.00 Constipation, unspecified; K76.0 Fatty (change of) liver, not elsewhere classified; K76.89 Other specified diseases of liver; M46.90 Unspecified inflammatory spondylopathy, site unspecified; R32 Unspecified urinary incontinence; R79.1 Abnormal coagulation profile; Z51.5 Encounter for palliative care; Z66 Do not resuscitate; Z78.1 Physical restraint status; Z79.01 Long term (current) use of anticoagulants; Z79.02 Long term (current) use of antithrombotics/antiplatelets; Z79.4 Long term (current) use of insulin; Z79.82 Long term (current) use of aspirin; Z82.3 Family history of stroke; Z87.11 Personal history of peptic ulcer disease; Z90.49 Acquired absence of other specified parts of digestive tract; Z90.710 Acquired absence of both cervix and uterus; D50.9 Iron deficiency anemia, unspecified; Z88.6 Allergy status to analgesic agent; I44.7 Left bundle-branch block, unspecified; E86.1 Hypovolemia